=== PATIENT | female | born 1980 | race Caucasian/White ===

== ENCOUNTER 2019-01-10 22:12 | Inpatient (IN) | payer OTHER ==
[2019-01-10] MEDS: SOD CHLORIDE 0.9% 500 ML IV (22:28)
[2019-01-10] MEDS: LORAZEPAM 2 MG INJ IV (22:28)
[2019-01-10] MEDS ORDERED: LORAZEPAM 2 MG INJ (22:31)
[2019-01-10 22:38] LABS: ABNORMAL IP MESSAGE 1; HEMATOCRIT 34.9 % (37.0-47.0); HEMOGLOBIN 11.1 g/dl (12.0-16.0); MEAN CORPUSCULAR HEMOGLOBIN 28.2 pg (29.0-33.0); MEAN CORPUSCULAR HGB CONC 31.8 g/dl (32.0-37.0); MEAN CORPUSCULAR VOLUME 88.6 fl (82.0-101.0); MEAN PLATELET VOLUME 13.1 fl (7.4-10.4); PLATELET COUNT 158 10^3/UL (140-415); RED BLOOD COUNT 3.94 10^6/ul (4.20-5.40); RED CELL DISTRIBUTION WIDTH 13.1 % (11.5-14.5)
[2019-01-10 22:38] LABS: WHITE BLOOD COUNT 9.2 10^3/ul (4.8-10.8)
[2019-01-10 22:41] LABS: ADD MAN DIFF? YES; POSITIVE DIFF @See below
[2019-01-10] MEDS: ASPIRIN 300 MG SUPP PR (22:48)
[2019-01-10 22:49] LABS: INR 1.02; PROTIME 13.5 Sec (11.9-14.9); PT RATIO 1.1
[2019-01-10 22:50] LABS: ALANINE AMINOTRANSFERASE 267 IU/L (13-69); ALBUMIN 3.1 g/dl (3.3-4.9); ALBUMIN/GLOBULIN RATIO 1.03; ALKALINE PHOSPHATASE 97 IU/L (42-121); ANION GAP 16 (5-13); ASPARTATE AMINO TRANSFERASE 199 IU/L (15-46); BILIRUBIN,INDIRECT 0.1 mg/dl (0-1.1); BILIRUBIN,TOTAL 0.1 mg/dl (0.2-1.3); BLOOD UREA NITROGEN 31 mg/dl (7-20); CALCIUM 8.7 mg/dl (8.4-10.2); CARBON DIOXIDE 11 mmol/L (21-31); CHLORIDE 110 mmol/L (97-110); CREATININE 1.75 mg/dl (0.44-1.00); Estimated GFR 32 mL/min (>60); GLUCOSE 268 mg/dl (70-220); LIPASE 169 U/L (23-300); PARTIAL THROMBOPLASTIN TIME 41.4 Sec (23.0-35.0); POTASSIUM 4.7 mmol/L (3.5-5.1); SODIUM 137 mmol/L (135-144); TOTAL PROTEIN 6.1 g/dl (6.1-8.1)
[2019-01-10] MEDS ORDERED: HEPARIN 1000 UNITS/ML 10 ML INJ (22:58)
[2019-01-10] MEDS ORDERED: VERAPAMIL 5 MG INJ ×2 (22:58→23:09)
[2019-01-10] MEDS ORDERED: IODIXANOL LOCM 100 ML BTL (22:58)
[2019-01-10] MEDS ORDERED: FENTAnyl 50 MCG/ML VIAL (22:58)
[2019-01-10] MEDS ORDERED: LIDOCAINE 1% (MDV) 20 ML INJ (22:58)
[2019-01-10] MEDS ORDERED: MIDAZOLAM 1 MG/ML 2 ML INJ (22:58)
[2019-01-10] MEDS ORDERED: NITROGLYCERIN (IC) 100 MCG/ML INJ (22:59)
[2019-01-10] MEDS: PROPOFOL 100 ML IV (22:59)
[2019-01-10 23:02] LABS: B-TYPE NATRIURETIC PEPTIDE 1240 PG/ML (0-125)
[2019-01-10 23:18] LABS: ANISOCYTOSIS 1+ (0-0); BASOPHIL #M 0.1 10^3/ul (0.0-0.0); BASOPHILS % (M) 2 % (0-2); EOSINOPHILS % (M) 1 % (0-7); LYMPHOCYTES #M 6.9 10^3/ul (0.8-2.9); LYMPHOCYTES % (M) 75 % (15-51); MICROCYTOSIS 1+ (0-0); MONOCYTE #M 0.4 10^3/ul (0.3-0.9); MONOCYTES % (M) 5 % (0-11); PLATELET ESTIMATE NORMAL; SEGMENTED NEUTROPHILS (M) % 17 % (39-77); SMUDGE%M 28 % (0-0)
[2019-01-10] MEDS ORDERED: EPTIFIBATIDE 100 ML IV (23:46)
[2019-01-10] MEDS ORDERED: TICAGRELOR 90 MG TABLET (23:46)
[2019-01-10] MEDS ORDERED: EPTIFIBATIDE 20 ML (23:46)
[2019-01-11] MEDS: morphine 2 MG INJ IV (00:55)
[2019-01-11] MEDS: MIDAZOLAM (DRIP) 50 mg/50 mL 50 ML IV ×4 (01:09→19:22)
[2019-01-11] MEDS: SOD CHLORIDE 0.9% 1,000 ML IV ×2 (01:10→21:11)
[2019-01-11] MEDS: EPTIFIBATIDE 100 ML IV (01:13)
[2019-01-11] MEDS ORDERED: DEXTROSE 50% 50 ML SYRINGE IV ×8 (01:30→12:00)
[2019-01-11] MEDS: ACCU-CHEK XX ×41 (01:30→21:00)
[2019-01-11] MEDS: INSULIN HUMAN REGULAR 100 UNIT in SOD CHLORIDE 0.9% 99 ML IV ×2 (01:37→14:20)
[2019-01-11 01:38] LABS: AADO2 Arterial 114.1 mmHg (7.0-24.0); Allen Test ACCEPTAB; Arterial Base Excess -9.1 mmol/L (-3.0-3); Arterial Blood Gas Oxygen Sat 98.8 mmHG (95.0-98.0); Arterial COHb 0.2 % (0.0-3.0); Arterial Fraction of Oxyhgb 98.3 % (93.0-99.0); Arterial MetHb 0.3 % (0.0-1.5); Arterial pCO2 32.4 mmhg (35-45); MODE VENT - AC; Site Right Radial
[2019-01-11] MEDS: NITROGLYCERIN 50 MG/D5W (PMX) 250 ML IV ×2 (01:49→14:22)
[2019-01-11] MEDS: PROPOFOL 100 ML IV ×5 (03:44→23:06)
[2019-01-11] MEDS: MIDAZOLAM 1 MG/ML 2 ML INJ IV (04:15)
[2019-01-11 05:22] LABS: ADD MAN DIFF? NO
[2019-01-11 05:32] LABS: BASOPHILS % 0.3 % (0.0-2.0); HEMATOCRIT 30.9 % (37.0-47.0); HEMOGLOBIN 10.4 g/dl (12.0-16.0); LYMPHOCYTES % 10.7 % (15.0-51.0); MEAN CORPUSCULAR HEMOGLOBIN 28.7 pg (29.0-33.0); MEAN CORPUSCULAR HGB CONC 33.7 g/dl (32.0-37.0); MEAN CORPUSCULAR VOLUME 85.4 fl (82.0-101.0); MEAN PLATELET VOLUME 12.7 fl (7.4-10.4); MONOCYTE # 0.6 10^3/ul (0.3-0.9); MONOCYTES % 6.7 % (0.0-11.0); NEUTROPHIL # 7.2 10^3/ul (1.6-7.5); NEUTROPHILS % 81.3 % (39.0-77.0); PLATELET COUNT 154 10^3/UL (140-415); RED BLOOD COUNT 3.62 10^6/ul (4.20-5.40); RED CELL DISTRIBUTION WIDTH 13.1 % (11.5-14.5)
[2019-01-11 05:32] LABS: WHITE BLOOD COUNT 8.9 10^3/ul (4.8-10.8)
[2019-01-11 05:51] LABS: HEMOGLOBIN A1C 5.2 % (0-5.9)
[2019-01-11 05:57] LABS: ALANINE AMINOTRANSFERASE 306 IU/L (13-69); ALBUMIN 3.1 g/dl (3.3-4.9); ALBUMIN/GLOBULIN RATIO 1.03; ALKALINE PHOSPHATASE 110 IU/L (42-121); ANION GAP 6 (5-13); ASPARTATE AMINO TRANSFERASE 309 IU/L (15-46); BILIRUBIN,INDIRECT 0.2 mg/dl (0-1.1); BILIRUBIN,TOTAL 0.2 mg/dl (0.2-1.3); BLOOD UREA NITROGEN 32 mg/dl (7-20); CALCIUM 8.2 mg/dl (8.4-10.2); CARBON DIOXIDE 18 mmol/L (21-31); CHLORIDE 112 mmol/L (97-110); CHOL/HDL RATIO 6.7 RATIO; CHOLESTEROL 223 mg/dl (100-200); CREATININE 1.25 mg/dl (0.44-1.00); Estimated GFR 48 mL/min (>60); GLUCOSE 122 mg/dl (70-220); HDL CHOLESTEROL 33 mg/dl (34-88); LDL CHOLESTEROL,CALCULATED 135 mg/dl; MAGNESIUM 1.7 mg/dl (1.7-2.5); POTASSIUM 4.1 mmol/L (3.5-5.1); SODIUM 136 mmol/L (135-144); TOTAL PROTEIN 6.1 g/dl (6.1-8.1); TRIGLYCERIDES 274 mg/dl (0-149)
[2019-01-11 06:04] LABS: B-TYPE NATRIURETIC PEPTIDE 2620 PG/ML (0-125)
[2019-01-11 06:20] LABS: FREE T4 (FREE THYROXINE) 2.23 ng/dl (0.79-2.35)
[2019-01-11 06:25] LABS: THYROID STIMULATING HORMONE 0.894 MIU/L (0.465-4.680)
[2019-01-11 06:33] LABS: CREATINE KINASE 216 IU/L (23-200)
[2019-01-11 06:49] LABS: CREATINE KINASE 216 IU/L (23-200)
[2019-01-11] MEDS: TICAGRELOR 90 MG TABLET PO ×2 (08:50→21:20)
[2019-01-11] MEDS: DOCUSATE SODIUM 100 MG CAP PO ×2 (08:52→21:00)
[2019-01-11] MEDS: ASPIRIN (EC) 81 MG TAB PO (08:53)
[2019-01-11] MEDS ORDERED: GLUCOSE GEL 15 GRAM TUBE PO ×2 (09:00)
[2019-01-11] MEDS ORDERED: GLUCOSE GEL 15 GRAM TUBE BUCCAL (09:00)
[2019-01-11] MEDS: Insulin NOVOLOG SS MILD Algorithm (NPO/TPN/ENTERAL FEEDS) SC (09:00)
[2019-01-11] MEDS ORDERED: GLUCAGON 1 MG INJ IM (09:00)
[2019-01-11] MEDS ORDERED: INSULIN ASPART [NOVOLOG] 3 ML PEN SC (09:00)
[2019-01-11] MEDS ORDERED: MEPERIDINE 25 MG INJ IV ×2 (11:00→17:00)
[2019-01-11 11:35] LABS: CREATINE KINASE 300 IU/L (23-200)
[2019-01-11 11:49] LABS: CK INDEX 7.7
[2019-01-11] MEDS ORDERED: morphine 10 MG INJ (12:06)
[2019-01-11] MEDS: LACTATED RINGER'S 500 ML IV (12:30)
[2019-01-11 12:42] LABS: ADD MAN DIFF? NO; UR BACTERIA FEW /HPF (NONE SEEN); UR NONSQUAMOUS EPITHELIAL CELL 1 /HPF (NONE SEEN); UR RBC 2 /HPF (0-5); UR WBC 17 /HPF (0-5)
[2019-01-11 12:43] LABS: BASOPHILS % 0.3 % (0.0-2.0); EOSINOPHILS % 0.1 % (0.0-7.0); HEMATOCRIT 29.3 % (37.0-47.0); HEMOGLOBIN 9.9 g/dl (12.0-16.0); LYMPHOCYTES # 0.9 10^3/ul (0.8-2.9); LYMPHOCYTES % 11.6 % (15.0-51.0); MEAN CORPUSCULAR HEMOGLOBIN 28.8 pg (29.0-33.0); MEAN CORPUSCULAR HGB CONC 33.8 g/dl (32.0-37.0); MEAN CORPUSCULAR VOLUME 85.2 fl (82.0-101.0); MEAN PLATELET VOLUME 12.8 fl (7.4-10.4); MONOCYTE # 0.6 10^3/ul (0.3-0.9); MONOCYTES % 8.3 % (0.0-11.0); NEUTROPHILS % 79.3 % (39.0-77.0); PLATELET COUNT 149 10^3/UL (140-415); RED BLOOD COUNT 3.44 10^6/ul (4.20-5.40); RED CELL DISTRIBUTION WIDTH 13.2 % (11.5-14.5)
[2019-01-11 12:43] LABS: WHITE BLOOD COUNT 7.6 10^3/ul (4.8-10.8)
[2019-01-11 12:46] LABS: LACTIC ACID 0.6 mmol/L (0.5-2.0)
[2019-01-11 12:47] LABS: ADD UMIC YES; UR ASCORBIC ACID NEGATIVE (NEGATIVE); UR BILIRUBIN (Dip) NEGATIVE (NEGATIVE); UR BLOOD (Dip) NEGATIVE (NEGATIVE); UR CLARITY CLEAR (CLEAR); UR COLOR YELLOW (YELLOW); UR GLUCOSE (Dip) NEGATIVE (NEGATIVE); UR KETONES (Dip) NEGATIVE (NEGATIVE); UR LEUKOCYTE ESTERASE (Dip) NEGATIVE Leu/ul (NEGATIVE); UR NITRITE (Dip) NEGATIVE (NEGATIVE); UR SPECIFIC GRAVITY (Dip) 1.025 (1.003-1.030); UR SQUAMOUS EPITHELIAL CELL FEW /HPF (FEW); UR TOTAL PROTEIN (Dip) 2+ mg/dl (NEGATIVE); UR UROBILINOGEN (Dip) NEGATIVE (NEGATIVE)
[2019-01-11 12:52] LABS: AMYLASE 66 U/L (11-123); ANION GAP 8 (5-13); BLOOD UREA NITROGEN 24 mg/dl (7-20); CALCIUM 8.2 mg/dl (8.4-10.2); CARBON DIOXIDE 15 mmol/L (21-31); CHLORIDE 115 mmol/L (97-110); CREATINE KINASE 294 IU/L (23-200); CREATININE 0.97 mg/dl (0.44-1.00); Estimated GFR > 60 mL/min (>60); GLUCOSE 125 mg/dl (70-220); LIPASE 92 U/L (23-300); MAGNESIUM 1.6 mg/dl (1.7-2.5); PHOSPHORUS 3.7 mg/dl (2.5-4.9); POTASSIUM 3.9 mmol/L (3.5-5.1); SODIUM 138 mmol/L (135-144)
[2019-01-11 13:03] LABS: CK INDEX 7.4
[2019-01-11 13:04] LABS: INR 0.99; PROTIME 13.2 Sec (11.9-14.9)
[2019-01-11 13:05] LABS: PARTIAL THROMBOPLASTIN TIME 34.3 Sec (23.0-35.0)
[2019-01-11 13:08] LABS: D-DIMER 2875.57 ng/ml (<460)
[2019-01-11] MEDS: FENTAnyl (DRIP) 1000 mcg/100mL 100 ML IV ×2 (14:22→19:21)
[2019-01-11] MEDS: MEPERIDINE 25 MG INJ IV ×2 (14:43→16:31)
[2019-01-11] MEDS: ACETAMINOPHEN 650MG/20.3ML CUP PO (14:57)
[2019-01-11] MEDS: ARTIFICIAL TEARS 15 ML OPH BOTH EYES ×2 (15:08→17:12)
[2019-01-11] MEDS: OCULAR LUBRICANT 3.5 GM OPH OINT BOTH EYES ×2 (15:09→17:12)
[2019-01-11] MEDS: MAGNESIUM SULFATE 2 GM/50 ML 50 ML IVPB (15:09)
[2019-01-11] MEDS: VECURONIUM 100 MG in DEXTROSE 5% 100 ML IV ×2 (16:51→16:59)
[2019-01-11 20:21] LABS: ADD MAN DIFF? NO; BASOPHILS % 0.4 % (0.0-2.0); EOSINOPHILS % 0.1 % (0.0-7.0); HEMATOCRIT 29.2 % (37.0-47.0); LYMPHOCYTES # 1.1 10^3/ul (0.8-2.9); LYMPHOCYTES % 15.3 % (15.0-51.0); MEAN CORPUSCULAR HEMOGLOBIN 28.8 pg (29.0-33.0); MEAN CORPUSCULAR HGB CONC 34.2 g/dl (32.0-37.0); MEAN CORPUSCULAR VOLUME 84.1 fl (82.0-101.0); MEAN PLATELET VOLUME 12.7 fl (7.4-10.4); MONOCYTE # 0.5 10^3/ul (0.3-0.9); MONOCYTES % 7.6 % (0.0-11.0); NEUTROPHIL # 5.4 10^3/ul (1.6-7.5); NEUTROPHILS % 76.2 % (39.0-77.0); PLATELET COUNT 142 10^3/UL (140-415); RED BLOOD COUNT 3.47 10^6/ul (4.20-5.40); RED CELL DISTRIBUTION WIDTH 13.1 % (11.5-14.5)
[2019-01-11 20:21] LABS: WHITE BLOOD COUNT 7.1 10^3/ul (4.8-10.8)
[2019-01-11 20:26] LABS: Arterial Base Excess -8.1 mmol/L (-3.0-3); Arterial Blood Gas Oxygen Sat 98.8 mmHG (95.0-98.0); Arterial COHb 0.3 % (0.0-3.0); Arterial Fraction of Oxyhgb 98.2 % (93.0-99.0); Arterial HCO3 12.9 mmol/L (22.0-26.0); Arterial MetHb 0.3 % (0.0-1.5); MODE VENT - AC; Site A-Line
[2019-01-11 20:39] LABS: LACTIC ACID 0.8 mmol/L (0.5-2.0)
[2019-01-11 20:40] LABS: ANION GAP 10 (5-13); BLOOD UREA NITROGEN 20 mg/dl (7-20); CALCIUM 8.5 mg/dl (8.4-10.2); CARBON DIOXIDE 12 mmol/L (21-31); CHLORIDE 114 mmol/L (97-110); CREATININE 0.78 mg/dl (0.44-1.00); Estimated GFR > 60 mL/min (>60); GLUCOSE 126 mg/dl (70-220); MAGNESIUM 2.8 mg/dl (1.7-2.5); PHOSPHORUS 3.1 mg/dl (2.5-4.9); POTASSIUM 3.4 mmol/L (3.5-5.1); SODIUM 136 mmol/L (135-144)
[2019-01-11 20:45] LABS: AADO2 Arterial 36.6 mmHg (7.0-24.0); Arterial pCO2 14.5 mmhg (35-45); Temperature 32.9 C
[2019-01-11] MEDS: ATORVASTATIN 80 MG TAB PO (21:16)
[2019-01-12] MEDS: ARTIFICIAL TEARS 15 ML OPH BOTH EYES ×4 (00:48→18:15)
[2019-01-12] MEDS: OCULAR LUBRICANT 3.5 GM OPH OINT BOTH EYES ×4 (00:48→18:15)
[2019-01-12 01:07] LABS: LIPASE 58 U/L (23-300)
[2019-01-12 01:07] LABS: AMYLASE 36 U/L (11-123)
[2019-01-12 01:08] LABS: INR 1.08; PROTIME 14.1 Sec (11.9-14.9); PT RATIO 1.1
[2019-01-12] MEDS ORDERED: ACCU-CHEK XX (02:00)
[2019-01-12 02:18] LABS: ADD MAN DIFF? NO
[2019-01-12 02:19] LABS: WHITE BLOOD COUNT 5.3 10^3/ul (4.8-10.8)
[2019-01-12 02:19] LABS: BASOPHILS % 0.2 % (0.0-2.0); EOSINOPHILS % 0.8 % (0.0-7.0); HEMATOCRIT 26.4 % (37.0-47.0); HEMOGLOBIN 8.9 g/dl (12.0-16.0); LYMPHOCYTES # 1.2 10^3/ul (0.8-2.9); LYMPHOCYTES % 22.6 % (15.0-51.0); MEAN CORPUSCULAR HEMOGLOBIN 28.3 pg (29.0-33.0); MEAN CORPUSCULAR HGB CONC 33.7 g/dl (32.0-37.0); MEAN CORPUSCULAR VOLUME 83.8 fl (82.0-101.0); MEAN PLATELET VOLUME 12.6 fl (7.4-10.4); MONOCYTE # 0.4 10^3/ul (0.3-0.9); MONOCYTES % 7.9 % (0.0-11.0); NEUTROPHIL # 3.6 10^3/ul (1.6-7.5); NEUTROPHILS % 67.9 % (39.0-77.0); PLATELET COUNT 114 10^3/UL (140-415); RED BLOOD COUNT 3.15 10^6/ul (4.20-5.40); RED CELL DISTRIBUTION WIDTH 13.2 % (11.5-14.5)
[2019-01-12 02:29] LABS: AADO2 Arterial 92.5 mmHg (7.0-24.0); Arterial Blood Gas Oxygen Sat 97.7 mmHG (95.0-98.0); Arterial COHb 0.2 % (0.0-3.0); Arterial Fraction of Oxyhgb 97.2 % (93.0-99.0); Arterial HCO3 14.7 mmol/L (22.0-26.0); Arterial MetHb 0.3 % (0.0-1.5); Arterial pCO2 21.5 mmhg (35-45); MODE VENT - AC; Site A-Line; Temperature 33.1 C
[2019-01-12 02:38] LABS: ANION GAP 8 (5-13); BLOOD UREA NITROGEN 19 mg/dl (7-20); CALCIUM 7.8 mg/dl (8.4-10.2); CARBON DIOXIDE 14 mmol/L (21-31); CHLORIDE 117 mmol/L (97-110); CREATININE 0.81 mg/dl (0.44-1.00); Estimated GFR > 60 mL/min (>60); GLUCOSE 107 mg/dl (70-220); MAGNESIUM 2.4 mg/dl (1.7-2.5); PHOSPHORUS 3.8 mg/dl (2.5-4.9); POTASSIUM 3.1 mmol/L (3.5-5.1); SODIUM 139 mmol/L (135-144)
[2019-01-12 02:39] LABS: LACTIC ACID 0.7 mmol/L (0.5-2.0)
[2019-01-12] MEDS: PROPOFOL 100 ML IV ×7 (02:47→22:05)
[2019-01-12] MEDS: POTASSIUM CHLORIDE 50 ML IVPB ×2 (03:22→05:22)
[2019-01-12] MEDS: SOD CHLORIDE 0.9% 1,000 ML IV ×2 (06:20→16:36)
[2019-01-12] MEDS: FENTAnyl (DRIP) 1000 mcg/100mL 100 ML IV ×2 (07:00→16:27)
[2019-01-12 07:05] LABS: AADO2 Arterial 79.5 mmHg (7.0-24.0); Arterial Base Excess -20.5 mmol/L (-3.0-3); Arterial Blood Gas Oxygen Sat 96.5 mmHG (95.0-98.0); Arterial COHb 0.1 % (0.0-3.0); Arterial HCO3 4.8 mmol/L (22.0-26.0); Arterial MetHb 1.5 % (0.0-1.5); Arterial pCO2 10.1 mmhg (35-45); MODE VENT - AC; Site A-Line
[2019-01-12 07:50] LABS: AADO2 Arterial 73.6 mmHg (7.0-24.0); Arterial Base Excess -9.4 mmol/L (-3.0-3); Arterial COHb 0.2 % (0.0-3.0); Arterial Fraction of Oxyhgb 97.5 % (93.0-99.0); Arterial HCO3 14.3 mmol/L (22.0-26.0); Arterial MetHb 0.3 % (0.0-1.5); Arterial pCO2 20.2 mmhg (35-45); MODE VENT - AC; Site A-Line; Temperature 32.5 C
[2019-01-12 08:17] LABS: ABNORMAL IP MESSAGE 1; ADD MAN DIFF? NO; BASOPHILS % 0.5 % (0.0-2.0); EOSINOPHILS # 0.1 10^3/ul (0.0-0.5); EOSINOPHILS % 2.3 % (0.0-7.0); HEMATOCRIT 25.1 % (37.0-47.0); HEMOGLOBIN 8.5 g/dl (12.0-16.0); LYMPHOCYTES % 25.1 % (15.0-51.0); MEAN CORPUSCULAR HEMOGLOBIN 28.6 pg (29.0-33.0); MEAN CORPUSCULAR HGB CONC 33.9 g/dl (32.0-37.0); MEAN CORPUSCULAR VOLUME 84.5 fl (82.0-101.0); MEAN PLATELET VOLUME 12.5 fl (7.4-10.4); MONOCYTE # 0.3 10^3/ul (0.3-0.9); MONOCYTES % 8.3 % (0.0-11.0); NEUTROPHIL # 2.5 10^3/ul (1.6-7.5); NEUTROPHILS % 63.3 % (39.0-77.0); PLATELET COUNT 94 10^3/UL (140-415); RED BLOOD COUNT 2.97 10^6/ul (4.20-5.40); RED CELL DISTRIBUTION WIDTH 13.3 % (11.5-14.5)
[2019-01-12 08:19] LABS: POSITIVE DIFF @See below
[2019-01-12] MEDS: DOCUSATE SODIUM 100 MG CAP PO ×2 (08:32→21:32)
[2019-01-12 08:40] LABS: LACTIC ACID 0.9 mmol/L (0.5-2.0)
[2019-01-12] MEDS: ASPIRIN 81 MG TAB NGT (08:51)
[2019-01-12] MEDS: TICAGRELOR 90 MG TABLET PO ×2 (08:53→21:33)
[2019-01-12 09:16] LABS: ANION GAP 5 (5-13); BLOOD UREA NITROGEN 19 mg/dl (7-20); CALCIUM 7.5 mg/dl (8.4-10.2); CARBON DIOXIDE 14 mmol/L (21-31); CHLORIDE 119 mmol/L (97-110); CREATININE 0.81 mg/dl (0.44-1.00); Estimated GFR > 60 mL/min (>60); GLUCOSE 109 mg/dl (70-220); MAGNESIUM 2.3 mg/dl (1.7-2.5); PHOSPHORUS 3.6 mg/dl (2.5-4.9); POTASSIUM 4.1 mmol/L (3.5-5.1); SODIUM 138 mmol/L (135-144)
[2019-01-12] MEDS ORDERED: ACETAMINOPHEN 650 MG SUPP PR (12:00)
[2019-01-12] MEDS: FUROSEMIDE 20 MG INJ IV (13:25)
[2019-01-12 14:08] LABS: AADO2 Arterial 126.4 mmHg (7.0-24.0); Arterial Base Excess -9.7 mmol/L (-3.0-3); Arterial Blood Gas Oxygen Sat 94.1 mmHG (95.0-98.0); Arterial COHb 0.2 % (0.0-3.0); Arterial Fraction of Oxyhgb 93.7 % (93.0-99.0); Arterial HCO3 14.7 mmol/L (22.0-26.0); Arterial MetHb 0.2 % (0.0-1.5); Arterial pCO2 23.7 mmhg (35-45); MODE VENT - AC; Site A-Line; Temperature 33.5 C
[2019-01-12 14:47] LABS: ADD MAN DIFF? NO
[2019-01-12 14:50] LABS: ABNORMAL IP MESSAGE 1; BASOPHILS % 0.2 % (0.0-2.0); EOSINOPHILS # 0.1 10^3/ul (0.0-0.5); EOSINOPHILS % 2.5 % (0.0-7.0); HEMATOCRIT 26.9 % (37.0-47.0); LYMPHOCYTES # 0.7 10^3/ul (0.8-2.9); LYMPHOCYTES % 16.1 % (15.0-51.0); MEAN CORPUSCULAR HEMOGLOBIN 28.8 pg (29.0-33.0); MEAN CORPUSCULAR HGB CONC 33.5 g/dl (32.0-37.0); MEAN CORPUSCULAR VOLUME 86.2 fl (82.0-101.0); MEAN PLATELET VOLUME 13.2 fl (7.4-10.4); MONOCYTE # 0.3 10^3/ul (0.3-0.9); MONOCYTES % 7.4 % (0.0-11.0); NEUTROPHIL # 2.9 10^3/ul (1.6-7.5); NEUTROPHILS % 73.1 % (39.0-77.0); PLATELET COUNT 95 10^3/UL (140-415); RED BLOOD COUNT 3.12 10^6/ul (4.20-5.40); RED CELL DISTRIBUTION WIDTH 13.7 % (11.5-14.5)
[2019-01-12 14:58] LABS: POSITIVE DIFF @See below
[2019-01-12 15:09] LABS: INR 1.05; PROTIME 13.8 Sec (11.9-14.9); PT RATIO 1.1
[2019-01-12 15:10] LABS: LIPASE 220 U/L (23-300); PARTIAL THROMBOPLASTIN TIME 36.6 Sec (23.0-35.0)
[2019-01-12 15:11] LABS: AMYLASE < 30 U/L (11-123)
[2019-01-12 15:12] LABS: ANION GAP 7 (5-13); BLOOD UREA NITROGEN 20 mg/dl (7-20); CALCIUM 7.6 mg/dl (8.4-10.2); CARBON DIOXIDE 15 mmol/L (21-31); CHLORIDE 116 mmol/L (97-110); CREATININE 0.89 mg/dl (0.44-1.00); Estimated GFR > 60 mL/min (>60); GLUCOSE 112 mg/dl (70-220); MAGNESIUM 2.3 mg/dl (1.7-2.5); PHOSPHORUS 3.8 mg/dl (2.5-4.9); POTASSIUM 3.9 mmol/L (3.5-5.1); SODIUM 138 mmol/L (135-144)
[2019-01-12 15:13] LABS: LACTIC ACID 0.8 mmol/L (0.5-2.0)
[2019-01-12 15:25] LABS: TROPONIN-I 0.757 ng/ml (0.000-0.120)
[2019-01-12] MEDS: ACETAMINOPHEN 650MG/20.3ML CUP PO (18:15)
[2019-01-12 20:05] LABS: AADO2 Arterial 124.9 mmHg (7.0-24.0); Arterial Base Excess -11.3 mmol/L (-3.0-3); Arterial Blood Gas Oxygen Sat 94.4 mmHG (95.0-98.0); Arterial COHb 0.2 % (0.0-3.0); Arterial Fraction of Oxyhgb 93.8 % (93.0-99.0); Arterial HCO3 13.5 mmol/L (22.0-26.0); Arterial MetHb 0.4 % (0.0-1.5); Arterial pCO2 22.9 mmhg (35-45); MODE VENT - AC; Site A-Line; Temperature 33.4 C
[2019-01-12 20:22] LABS: ADD MAN DIFF? NO
[2019-01-12 20:24] LABS: ABNORMAL IP MESSAGE 1; BASOPHILS % 0.4 % (0.0-2.0); EOSINOPHILS # 0.1 10^3/ul (0.0-0.5); HEMATOCRIT 27.5 % (37.0-47.0); HEMOGLOBIN 9.3 g/dl (12.0-16.0); LYMPHOCYTES # 0.8 10^3/ul (0.8-2.9); LYMPHOCYTES % 18.4 % (15.0-51.0); MEAN CORPUSCULAR HEMOGLOBIN 29.1 pg (29.0-33.0); MEAN CORPUSCULAR HGB CONC 33.8 g/dl (32.0-37.0); MEAN CORPUSCULAR VOLUME 85.9 fl (82.0-101.0); MEAN PLATELET VOLUME 13.3 fl (7.4-10.4); MONOCYTE # 0.3 10^3/ul (0.3-0.9); MONOCYTES % 7.5 % (0.0-11.0); NEUTROPHIL # 3.2 10^3/ul (1.6-7.5); PLATELET COUNT 103 10^3/UL (140-415); RED CELL DISTRIBUTION WIDTH 13.8 % (11.5-14.5)
[2019-01-12 20:24] LABS: WHITE BLOOD COUNT 4.5 10^3/ul (4.8-10.8)
[2019-01-12 20:35] LABS: POSITIVE DIFF @See below
[2019-01-12 20:43] LABS: ANION GAP 5 (5-13); BLOOD UREA NITROGEN 19 mg/dl (7-20); CALCIUM 7.5 mg/dl (8.4-10.2); CARBON DIOXIDE 14 mmol/L (21-31); CHLORIDE 119 mmol/L (97-110); CREATININE 0.94 mg/dl (0.44-1.00); Estimated GFR > 60 mL/min (>60); GLUCOSE 111 mg/dl (70-220); MAGNESIUM 2.2 mg/dl (1.7-2.5); PHOSPHORUS 4.1 mg/dl (2.5-4.9); POTASSIUM 4.1 mmol/L (3.5-5.1); SODIUM 138 mmol/L (135-144)
[2019-01-12 20:48] LABS: LACTIC ACID 1.1 mmol/L (0.5-2.0)
[2019-01-12 20:56] LABS: TROPONIN-I 0.712 ng/ml (0.000-0.120)
[2019-01-12] MEDS: ACCU-CHEK XX (21:00)
[2019-01-12] MEDS: ATORVASTATIN 80 MG TAB PO (21:32)
[2019-01-13] MEDS: ARTIFICIAL TEARS 15 ML OPH BOTH EYES ×4 (00:20→18:39)
[2019-01-13] MEDS: OCULAR LUBRICANT 3.5 GM OPH OINT BOTH EYES ×4 (00:20→18:39)
[2019-01-13] MEDS: ACETAMINOPHEN 650MG/20.3ML CUP PO ×4 (00:20→18:40)
[2019-01-13] MEDS: PROPOFOL 100 ML IV ×6 (01:23→22:13)
[2019-01-13] MEDS: SOD CHLORIDE 0.9% 1,000 ML IV ×3 (01:32→13:49)
[2019-01-13 02:40] LABS: ADD MAN DIFF? NO
[2019-01-13 02:46] LABS: WHITE BLOOD COUNT 7.5 10^3/ul (4.8-10.8)
[2019-01-13 02:46] LABS: ABNORMAL IP MESSAGE 1; BASOPHILS % 0.3 % (0.0-2.0); EOSINOPHILS # 0.1 10^3/ul (0.0-0.5); EOSINOPHILS % 0.7 % (0.0-7.0); HEMATOCRIT 31.3 % (37.0-47.0); HEMOGLOBIN 10.4 g/dl (12.0-16.0); LYMPHOCYTES # 0.6 10^3/ul (0.8-2.9); LYMPHOCYTES % 8.2 % (15.0-51.0); MEAN CORPUSCULAR HGB CONC 33.2 g/dl (32.0-37.0); MEAN CORPUSCULAR VOLUME 87.2 fl (82.0-101.0); MEAN PLATELET VOLUME 13.2 fl (7.4-10.4); MONOCYTE # 0.5 10^3/ul (0.3-0.9); MONOCYTES % 6.8 % (0.0-11.0); NEUTROPHIL # 6.2 10^3/ul (1.6-7.5); NEUTROPHILS % 83.3 % (39.0-77.0); PLATELET COUNT 117 10^3/UL (140-415); RED BLOOD COUNT 3.59 10^6/ul (4.20-5.40); RED CELL DISTRIBUTION WIDTH 14.2 % (11.5-14.5)
[2019-01-13 02:59] LABS: POSITIVE DIFF @See below
[2019-01-13 03:00] LABS: LACTIC ACID 0.9 mmol/L (0.5-2.0)
[2019-01-13 03:08] LABS: INR 1.03; PROTIME 13.6 Sec (11.9-14.9); PT RATIO 1.1
[2019-01-13 03:09] LABS: PARTIAL THROMBOPLASTIN TIME 37.2 Sec (23.0-35.0)
[2019-01-13 03:10] LABS: ALANINE AMINOTRANSFERASE 321 IU/L (13-69); ALBUMIN 2.7 g/dl (3.3-4.9); ALKALINE PHOSPHATASE 151 IU/L (42-121); ANION GAP 8 (5-13); ASPARTATE AMINO TRANSFERASE 148 IU/L (15-46); BILIRUBIN,INDIRECT 0.1 mg/dl (0-1.1); BILIRUBIN,TOTAL 0.3 mg/dl (0.2-1.3); BLOOD UREA NITROGEN 19 mg/dl (7-20); CALCIUM 7.9 mg/dl (8.4-10.2); CARBON DIOXIDE 13 mmol/L (21-31); CHLORIDE 119 mmol/L (97-110); CREATININE 1.12 mg/dl (0.44-1.00); Estimated GFR 54 mL/min (>60); GLUCOSE 111 mg/dl (70-220); MAGNESIUM 2.1 mg/dl (1.7-2.5); POTASSIUM 4.2 mmol/L (3.5-5.1); SODIUM 140 mmol/L (135-144); TOTAL PROTEIN 5.7 g/dl (6.1-8.1)
[2019-01-13 03:11] LABS: AMYLASE 46 U/L (11-123)
[2019-01-13 03:11] LABS: LIPASE 125 U/L (23-300)
[2019-01-13] MEDS: FENTAnyl (DRIP) 1000 mcg/100mL 100 ML IV ×2 (03:13→16:58)
[2019-01-13 03:20] LABS: TROPONIN-I 0.738 ng/ml (0.000-0.120)
[2019-01-13 03:48] LABS: Arterial Base Excess -14.6 mmol/L (-3.0-3); Arterial Blood Gas Oxygen Sat 99.1 mmHG (95.0-98.0); Arterial COHb 0.3 % (0.0-3.0); Arterial Fraction of Oxyhgb 98.4 % (93.0-99.0); Arterial HCO3 13.6 mmol/L (22.0-26.0); Arterial MetHb 0.4 % (0.0-1.5); Arterial pCO2 35.9 mmhg (35-45); MODE VENT - AC; Site A-Line; Temperature 34.6 C
[2019-01-13] MEDS: SOD CHLORIDE 0.9% 500 ML IV (04:37)
[2019-01-13] MEDS ORDERED: BIVALIRUDIN 250 MG/50 ML NS BAG IVPB (07:00)
[2019-01-13] MEDS: FUROSEMIDE 40 MG INJ IV (07:14)
[2019-01-13] MEDS: TICAGRELOR 90 MG TABLET PO ×2 (08:15→21:05)
[2019-01-13] MEDS: ASPIRIN 81 MG TAB NGT (08:15)
[2019-01-13] MEDS: DOCUSATE SODIUM 100 MG CAP PO ×2 (08:19→21:04)
[2019-01-13] MEDS: ACCU-CHEK XX ×2 (08:27→21:00)
[2019-01-13] MEDS ORDERED: VERAPAMIL 5 MG INJ (11:27)
[2019-01-13] MEDS ORDERED: LIDOCAINE 1% (MDV) 20 ML INJ (11:27)
[2019-01-13] MEDS ORDERED: NITROGLYCERIN (IC) 100 MCG/ML INJ (11:28)
[2019-01-13] MEDS ORDERED: IOHEXOL 350MG/ML 50 ML BTL (12:25)
[2019-01-13] MEDS ORDERED: IODIXANOL LOCM 100 ML BTL (12:25)
[2019-01-13] MEDS: ATORVASTATIN 80 MG TAB PO (21:04)
[2019-01-14] MEDS: ACETAMINOPHEN 650MG/20.3ML CUP PO ×3 (00:19→12:00)
[2019-01-14] MEDS: ARTIFICIAL TEARS 15 ML OPH BOTH EYES ×4 (00:20→18:05)
[2019-01-14] MEDS: OCULAR LUBRICANT 3.5 GM OPH OINT BOTH EYES ×4 (00:20→18:05)
[2019-01-14] MEDS: SOD CHLORIDE 0.9% 1,000 ML IV ×3 (00:21→23:44)
[2019-01-14] MEDS: FENTAnyl (DRIP) 1000 mcg/100mL 100 ML IV ×2 (02:33→16:52)
[2019-01-14 04:26] LABS: WHITE BLOOD COUNT 8.9 10^3/ul (4.8-10.8)
[2019-01-14 04:26] LABS: ABNORMAL IP MESSAGE 1; HEMATOCRIT 28.8 % (37.0-47.0); HEMOGLOBIN 9.3 g/dl (12.0-16.0); MEAN CORPUSCULAR HEMOGLOBIN 28.9 pg (29.0-33.0); MEAN CORPUSCULAR HGB CONC 32.3 g/dl (32.0-37.0); MEAN CORPUSCULAR VOLUME 89.4 fl (82.0-101.0); MEAN PLATELET VOLUME 14.1 fl (7.4-10.4); PLATELET COUNT 103 10^3/UL (140-415); RED BLOOD COUNT 3.22 10^6/ul (4.20-5.40); RED CELL DISTRIBUTION WIDTH 14.8 % (11.5-14.5)
[2019-01-14 04:36] LABS: POSITIVE DIFF @See below
[2019-01-14 04:38] LABS: ADD MAN DIFF? YES
[2019-01-14 04:50] LABS: ALANINE AMINOTRANSFERASE 197 IU/L (13-69); ALBUMIN 2.4 g/dl (3.3-4.9); ALBUMIN/GLOBULIN RATIO 0.77; ALKALINE PHOSPHATASE 200 IU/L (42-121); ANION GAP 11 (5-13); ASPARTATE AMINO TRANSFERASE 110 IU/L (15-46); BLOOD UREA NITROGEN 19 mg/dl (7-20); CALCIUM 7.4 mg/dl (8.4-10.2); CARBON DIOXIDE 14 mmol/L (21-31); CHLORIDE 117 mmol/L (97-110); CREATINE KINASE 1003 IU/L (23-200); CREATININE 1.23 mg/dl (0.44-1.00); Estimated GFR 49 mL/min (>60); GLUCOSE 92 mg/dl (70-220); POTASSIUM 4.4 mmol/L (3.5-5.1); SODIUM 142 mmol/L (135-144); TOTAL PROTEIN 5.5 g/dl (6.1-8.1)
[2019-01-14 04:53] LABS: MAGNESIUM 1.7 mg/dl (1.7-2.5)
[2019-01-14 04:57] LABS: B-TYPE NATRIURETIC PEPTIDE 24300 PG/ML (0-125)
[2019-01-14 05:17] LABS: BILIRUBIN,INDIRECT 0.1 mg/dl (0-1.1); BILIRUBIN,TOTAL 0.2 mg/dl (0.2-1.3)
[2019-01-14] MEDS: PROPOFOL 100 ML IV ×3 (06:39→21:55)
[2019-01-14 06:53] LABS: ANISOCYTOSIS 1+ (0-0); BAND NEUTROPHILS #M 2.6 10^3/ul (0.0-0.6); BAND NEUTROPHILS % (M) 30 % (0-4); BURR CELLS 1+ (0-0); EOSINOPHILS % (M) 1 % (0-7); GIANT THROMBO% (M) 11 % (0-0); LYMPHOCYTES #M 1.2 10^3/ul (0.8-2.9); LYMPHOCYTES % (M) 14 % (15-51); MONOCYTE #M 0.3 10^3/ul (0.3-0.9); MONOCYTES % (M) 4 % (0-11); PLATELET ESTIMATE DECREASED; POIKILOCYTOSIS 1+ (0-0); SEG NEUT #M 4.8 10^3/ul (1.6-7.5); SEGMENTED NEUTROPHILS (M) % 51 % (39-77); SMUDGE%M 16 % (0-0)
[2019-01-14 08:39] LABS: AADO2 Arterial 71.4 mmHg (7.0-24.0); Allen Test ACCEPTAB; Arterial Blood Gas Oxygen Sat 96.9 mmHG (95.0-98.0); Arterial COHb 0.2 % (0.0-3.0); Arterial Fraction of Oxyhgb 96.2 % (93.0-99.0); Arterial HCO3 12.5 mmol/L (22.0-26.0); Arterial MetHb 0.5 % (0.0-1.5); Arterial pCO2 31.6 mmhg (35-45); MODE VENT - AC; Site Right Radial
[2019-01-14] MEDS: DOCUSATE SODIUM 100 MG CAP PO ×2 (09:18→20:46)
[2019-01-14] MEDS: ASPIRIN 81 MG TAB NGT (09:18)
[2019-01-14] MEDS: ACCU-CHEK XX ×2 (09:21→21:00)
[2019-01-14] MEDS: TICAGRELOR 90 MG TABLET PO ×2 (09:24→21:07)
[2019-01-14] MEDS: SODIUM BICARBONATE (IV ADD) 100 MEQ in DEXTROSE 5%-0.45% NACL 1,000 ML IV ×3 (09:30→21:00)
[2019-01-14] MEDS: MAGNESIUM SULFATE 3 GM in DEXTROSE 5% 100 ML IVPB (10:38)
[2019-01-14] MEDS: ALBUMIN HUMAN 25% 50 ML IV (14:07)
[2019-01-14] MEDS: ATORVASTATIN 80 MG TAB PO (20:46)
[2019-01-15] MEDS: ARTIFICIAL TEARS 15 ML OPH BOTH EYES ×5 (00:30→23:03)
[2019-01-15] MEDS: SODIUM BICARBONATE (IV ADD) 100 MEQ in DEXTROSE 5%-0.45% NACL 1,000 ML IV ×3 (00:30→23:28)
[2019-01-15] MEDS: OCULAR LUBRICANT 3.5 GM OPH OINT BOTH EYES ×5 (00:31→23:03)
[2019-01-15] MEDS: ACETAMINOPHEN 650 MG SUPP PR (04:37)
[2019-01-15] MEDS: PROPOFOL 100 ML IV (04:37)
[2019-01-15 05:37] LABS: ABNORMAL IP MESSAGE 1; HEMATOCRIT 23.2 % (37.0-47.0); HEMOGLOBIN 7.4 g/dl (12.0-16.0); MEAN CORPUSCULAR HEMOGLOBIN 28.5 pg (29.0-33.0); MEAN CORPUSCULAR HGB CONC 31.9 g/dl (32.0-37.0); MEAN CORPUSCULAR VOLUME 89.2 fl (82.0-101.0); MEAN PLATELET VOLUME 14.4 fl (7.4-10.4); PLATELET COUNT 102 10^3/UL (140-415); RED CELL DISTRIBUTION WIDTH 15.4 % (11.5-14.5)
[2019-01-15 05:46] LABS: CREATINE KINASE 750 IU/L (23-200)
[2019-01-15 05:50] LABS: MAGNESIUM 2.6 mg/dl (1.7-2.5)
[2019-01-15 05:52] LABS: ALANINE AMINOTRANSFERASE 129 IU/L (13-69); ALBUMIN 2.3 g/dl (3.3-4.9); ALBUMIN/GLOBULIN RATIO 0.88; ALKALINE PHOSPHATASE 191 IU/L (42-121); ANION GAP 8 (5-13); ASPARTATE AMINO TRANSFERASE 81 IU/L (15-46); BILIRUBIN,INDIRECT 0.2 mg/dl (0-1.1); BILIRUBIN,TOTAL 0.2 mg/dl (0.2-1.3); BLOOD UREA NITROGEN 26 mg/dl (7-20); CALCIUM 7.2 mg/dl (8.4-10.2); CARBON DIOXIDE 16 mmol/L (21-31); CHLORIDE 119 mmol/L (97-110); CREATININE 1.57 mg/dl (0.44-1.00); Estimated GFR 37 mL/min (>60); GLUCOSE 108 mg/dl (70-220); POTASSIUM 3.8 mmol/L (3.5-5.1); SODIUM 143 mmol/L (135-144); TOTAL PROTEIN 4.9 g/dl (6.1-8.1)
[2019-01-15 05:59] LABS: CK INDEX 2.2
[2019-01-15 06:00] LABS: ADD MAN DIFF? YES; POSITIVE DIFF @See below
[2019-01-15] MEDS ORDERED: PANTOPRAZOLE 40 MG INJ IV (06:00)
[2019-01-15 06:20] LABS: ADD UMIC YES; UR ASCORBIC ACID 40 mg/dL (NEGATIVE); UR BILIRUBIN (Dip) NEGATIVE (NEGATIVE); UR BLOOD (Dip) NEGATIVE (NEGATIVE); UR CLARITY CLOUDY (CLEAR); UR COLOR AMBER (YELLOW); UR GLUCOSE (Dip) NEGATIVE (NEGATIVE); UR HYALINE CAST FEW /HPF (NONE SEEN); UR KETONES (Dip) NEGATIVE (NEGATIVE); UR LEUKOCYTE ESTERASE (Dip) TRACE Leu/ul (NEGATIVE); UR MUCUS FEW /HPF (NONE SEEN); UR NITRITE (Dip) NEGATIVE (NEGATIVE); UR RBC 34 /HPF (0-5); UR SPECIFIC GRAVITY (Dip) 1.026 (1.003-1.030); UR SQUAMOUS EPITHELIAL CELL FEW /HPF (FEW); UR TOTAL PROTEIN (Dip) 2+ mg/dl (NEGATIVE); UR UROBILINOGEN (Dip) 1+ mg/dL (NEGATIVE); UR WBC 16 /HPF (0-5)
[2019-01-15 07:25] LABS: AADO2 Arterial 240.6 mmHg (7.0-24.0); Allen Test ACCEPTAB; Arterial Base Excess -7.5 mmol/L (-3.0-3); Arterial Blood Gas Oxygen Sat 93.7 mmHG (95.0-98.0); Arterial COHb 0.3 % (0.0-3.0); Arterial Fraction of Oxyhgb 92.9 % (93.0-99.0); Arterial HCO3 17.9 mmol/L (22.0-26.0); Arterial MetHb 0.6 % (0.0-1.5); Arterial pCO2 35.6 mmhg (35-45); MODE VENT - AC; Site Right Radial
[2019-01-15] MEDS: ZINC SULFATE 220 MG CAP NGT (09:00)
[2019-01-15] MEDS: ASCORBIC ACID 500 MG TAB NGT (09:00)
[2019-01-15] MEDS ORDERED: FAMOTIDINE 20 MG INJ IV (09:00)
[2019-01-15] MEDS: ASPIRIN 81 MG TAB NGT (09:00)
[2019-01-15] MEDS: MULTIVITAMINS 30 ML CUP NGT (09:00)
[2019-01-15] MEDS: PIPER-TAZO 3.375 GM IV (PMX) 100 ML IVPB ×3 (09:00→21:18)
[2019-01-15] MEDS: DOCUSATE SODIUM 100 MG CAP PO ×2 (09:00→21:18)
[2019-01-15] MEDS: FOLIC ACID 1 MG TAB NGT (09:00)
[2019-01-15] MEDS: TICAGRELOR 90 MG TABLET PO ×2 (09:01→21:41)
[2019-01-15 09:03] LABS: BAND NEUTROPHILS #M 1.3 10^3/ul (0.0-0.6); BAND NEUTROPHILS % (M) 33 % (0-4); BASOPHIL #M 0.2 10^3/ul (0.0-0.0); BASOPHILS % (M) 5 % (0-2); EOSINOPHILS % (M) 1 % (0-7); ERYTHROBLAST% (NRBC) (M) 5 % (0-0); GIANT THROMBO% (M) 21 % (0-0); HYPOCHROMASIA 1+ (0-0); LYMPHOCYTES % (M) 26 % (15-51); METAMYELOCYTES %M 1 % (0-0); MONOCYTE #M 0.2 10^3/ul (0.3-0.9); MONOCYTES % (M) 5 % (0-11); MYELOCYTES % (M) 2 % (0-0); PLATELET ESTIMATE DECREASED; POLYCHROMASIA 1+ (0-0); PROMYELOCYTES % (M) 2 % (0-0); REACTIVE LYMPHOCYTES% (M) 1 % (0-0); SEGMENTED NEUTROPHILS (M) % 24 % (39-77); SMUDGE%M 73 % (0-0)
[2019-01-15] MEDS: PANTOPRAZOLE 40 MG INJ IV ×2 (09:03→18:39)
[2019-01-15] MEDS: ACCU-CHEK XX ×2 (09:52→21:00)
[2019-01-15] MEDS: FENTAnyl (DRIP) 1000 mcg/100mL 100 ML IV (09:55)
[2019-01-15] MEDS: DEXMEDETOMIDINE HCL 200 MCG in SOD CHLORIDE 0.9% 48 ML IV ×3 (11:35→22:56)
[2019-01-15 12:35] LABS: HEMATOCRIT 21.7 % (37.0-47.0)
[2019-01-15] MEDS: ALBUTEROL HFA 8 GM INHALER INH ×2 (13:38→20:20)
[2019-01-15] MEDS: IPRATROPIUM (HFA) 12.9 GM INHALER INH ×2 (14:00→20:20)
[2019-01-15] MEDS ORDERED: ALBUMIN HUMAN 25% 50 ML (15:18)
[2019-01-15] MEDS: ALBUMIN HUMAN 25% 50 ML IV (15:26)
[2019-01-15] MEDS: ATORVASTATIN 80 MG TAB PO (21:18)
[2019-01-15 22:41] LABS: HEMATOCRIT 22.4 % (37.0-47.0); HEMOGLOBIN 7.2 g/dl (12.0-16.0)
[2019-01-15] MEDS: ALBUMIN HUMAN 25% 100 ML IV (23:30)
[2019-01-16] MEDS: NORepinephrine 8MG/250 ML (PMX 250 ML IV (00:41)
[2019-01-16] MEDS: IPRATROPIUM (HFA) 12.9 GM INHALER INH ×4 (01:28→19:38)
[2019-01-16] MEDS: ALBUTEROL HFA 8 GM INHALER INH ×4 (01:28→19:38)
[2019-01-16] MEDS ORDERED: VANCOMYCIN IV PER PHARMACY XX (01:30)
[2019-01-16] MEDS: VANCOMYCIN HCL 1.5 GM in SOD CHLORIDE 0.9% 250 ML IVPB (01:59)
[2019-01-16] MEDS: FENTAnyl (DRIP) 1000 mcg/100mL 100 ML IV ×2 (02:42→17:14)
[2019-01-16] MEDS: ACETAMINOPHEN 650MG/20.3ML CUP PO (04:37)
[2019-01-16 05:14] LABS: ABNORMAL IP MESSAGE 1; HEMATOCRIT 20.8 % (37.0-47.0); MEAN CORPUSCULAR HEMOGLOBIN 27.3 pg (29.0-33.0); MEAN CORPUSCULAR HGB CONC 32.2 g/dl (32.0-37.0); MEAN CORPUSCULAR VOLUME 84.9 fl (82.0-101.0); MEAN PLATELET VOLUME 14.6 fl (7.4-10.4); NUCLEATED RED BLOOD CELLS% 1.4 /100WBC (0.0-0.0); PLATELET COUNT 83 10^3/UL (140-415); RED BLOOD COUNT 2.45 10^6/ul (4.20-5.40); RED CELL DISTRIBUTION WIDTH 17.2 % (11.5-14.5)
[2019-01-16 05:14] LABS: WHITE BLOOD COUNT 6.3 10^3/ul (4.8-10.8)
[2019-01-16] MEDS: DEXMEDETOMIDINE HCL 200 MCG in SOD CHLORIDE 0.9% 48 ML IV ×5 (05:23→23:18)
[2019-01-16] MEDS: OCULAR LUBRICANT 3.5 GM OPH OINT BOTH EYES ×4 (05:24→23:09)
[2019-01-16] MEDS: PIPER-TAZO 3.375 GM IV (PMX) 100 ML IVPB (05:24)
[2019-01-16] MEDS: ARTIFICIAL TEARS 15 ML OPH BOTH EYES ×4 (05:24→23:09)
[2019-01-16] MEDS: PANTOPRAZOLE 40 MG INJ IV ×2 (05:40→18:44)
[2019-01-16 05:52] LABS: ALANINE AMINOTRANSFERASE 71 IU/L (13-69); ALBUMIN 2.3 g/dl (3.3-4.9); ALBUMIN/GLOBULIN RATIO 0.92; ALKALINE PHOSPHATASE 165 IU/L (42-121); ANION GAP 11 (5-13); ASPARTATE AMINO TRANSFERASE 55 IU/L (15-46); BILIRUBIN,INDIRECT 0.4 mg/dl (0-1.1); BILIRUBIN,TOTAL 0.8 mg/dl (0.2-1.3); BLOOD UREA NITROGEN 41 mg/dl (7-20); CALCIUM 6.5 mg/dl (8.4-10.2); CARBON DIOXIDE 20 mmol/L (21-31); CHLORIDE 112 mmol/L (97-110); Estimated GFR 20 mL/min (>60); GLUCOSE 137 mg/dl (70-220); MAGNESIUM 2.7 mg/dl (1.7-2.5); POTASSIUM 3.6 mmol/L (3.5-5.1); SODIUM 143 mmol/L (135-144); TOTAL PROTEIN 4.8 g/dl (6.1-8.1)
[2019-01-16 05:59] LABS: ADD MAN DIFF? YES; HEMOGLOBIN 6.7 g/dl (12.0-16.0); POSITIVE DIFF @See below
[2019-01-16 06:20] LABS: B-TYPE NATRIURETIC PEPTIDE 33300 PG/ML (0-125)
[2019-01-16 06:55] LABS: ANISOCYTOSIS 1+ (0-0); BAND NEUTROPHILS #M 3.2 10^3/ul (0.0-0.6); BAND NEUTROPHILS % (M) 51 % (0-4); BURR CELLS 1+ (0-0); ERYTHROBLAST% (NRBC) (M) 1 % (0-0); GIANT THROMBO% (M) 1 % (0-0); LYMPHOCYTES #M 0.6 10^3/ul (0.8-2.9); LYMPHOCYTES % (M) 11 % (15-51); METAMYELOCYTES #M 0.2 10^3/ul (0.0-0.0); METAMYELOCYTES %M 4 % (0-0); MICROCYTOSIS 1+ (0-0); MONOCYTE #M 0.2 10^3/ul (0.3-0.9); MONOCYTES % (M) 4 % (0-11); MYELOCYTES % (M) 1 % (0-0); PLATELET ESTIMATE DECREASED; POIKILOCYTOSIS 1+ (0-0); POLYCHROMASIA 3+ (0-0); PROMYELOCYTES % (M) 1 % (0-0); SEGMENTED NEUTROPHILS (M) % 28 % (39-77); SMUDGE%M 4 % (0-0); TARGET CELLS 1+ (0-0)
[2019-01-16 07:34] LABS: IMMEDIATE SPIN CROSSMATCH 1 3
[2019-01-16 07:39] LABS: AADO2 Arterial 201.6 mmHg (7.0-24.0); Allen Test ACCEPTAB; Arterial Base Excess -4.5 mmol/L (-3.0-3); Arterial Blood Gas Oxygen Sat 97.6 mmHG (95.0-98.0); Arterial COHb 0.3 % (0.0-3.0); Arterial Fraction of Oxyhgb 96.9 % (93.0-99.0); Arterial HCO3 20.1 mmol/L (22.0-26.0); Arterial MetHb 0.4 % (0.0-1.5); Arterial pCO2 34.9 mmhg (35-45); MODE VENT - AC; Site Right Radial
[2019-01-16] MEDS: ASCORBIC ACID 500 MG TAB NGT (08:24)
[2019-01-16] MEDS: ASPIRIN 81 MG TAB NGT ×2 (08:24→09:43)
[2019-01-16] MEDS: ZINC SULFATE 220 MG CAP NGT (08:25)
[2019-01-16] MEDS: FOLIC ACID 1 MG TAB NGT (08:25)
[2019-01-16] MEDS: MULTIVITAMINS 30 ML CUP NGT (08:25)
[2019-01-16] MEDS: DOCUSATE SODIUM 100 MG CAP PO ×2 (08:26→20:14)
[2019-01-16] MEDS: ACCU-CHEK XX ×2 (08:37→20:26)
[2019-01-16] MEDS ORDERED: LANSOPRAZOLE ORAL SUSP 3 MG/ML (POSYG) PO (09:00)
[2019-01-16] MEDS: TICAGRELOR 90 MG TABLET PO ×2 (09:43→20:15)
[2019-01-16] MEDS: SODIUM BICARBONATE (IV ADD) 100 MEQ in DEXTROSE 5%-0.45% NACL 1,000 ML IV ×2 (10:02→23:08)
[2019-01-16] MEDS: PIPER-TAZO 2.25 GM/NS 50 ML IVPB ×2 (14:37→20:28)
[2019-01-16 18:33] LABS: HEMOGLOBIN 9.2 g/dl (12.0-16.0)
[2019-01-16] MEDS: ATORVASTATIN 80 MG TAB PO (20:13)
[2019-01-16] MEDS: FUROSEMIDE 40 MG INJ IV (23:10)
[2019-01-17] MEDS ORDERED: VANCOMYCIN HCL 1.25 GM in SOD CHLORIDE 0.9% 250 ML IVPB ×2 (02:00→13:00)
[2019-01-17] MEDS: DEXMEDETOMIDINE HCL 200 MCG in SOD CHLORIDE 0.9% 48 ML IV ×6 (02:59→23:26)
[2019-01-17] MEDS: ALBUTEROL HFA 8 GM INHALER INH ×4 (03:20→20:49)
[2019-01-17] MEDS: IPRATROPIUM (HFA) 12.9 GM INHALER INH ×4 (03:20→20:50)
[2019-01-17 04:41] LABS: ABNORMAL IP MESSAGE 1; HEMATOCRIT 28.1 % (37.0-47.0); MEAN CORPUSCULAR HEMOGLOBIN 27.7 pg (29.0-33.0); MEAN CORPUSCULAR VOLUME 86.5 fl (82.0-101.0); NUCLEATED RED BLOOD CELLS% 1.2 /100WBC (0.0-0.0); PLATELET COUNT 82 10^3/UL (140-415); RED BLOOD COUNT 3.25 10^6/ul (4.20-5.40); RED CELL DISTRIBUTION WIDTH 16.9 % (11.5-14.5)
[2019-01-17 04:41] LABS: WHITE BLOOD COUNT 10.1 10^3/ul (4.8-10.8)
[2019-01-17 04:53] LABS: ADD MAN DIFF? YES; POSITIVE DIFF @See below
[2019-01-17 04:56] LABS: ALANINE AMINOTRANSFERASE 66 IU/L (13-69); ALBUMIN 2.3 g/dl (3.3-4.9); ALBUMIN/GLOBULIN RATIO 0.92; ALKALINE PHOSPHATASE 250 IU/L (42-121); ANION GAP 8 (5-13); ASPARTATE AMINO TRANSFERASE 93 IU/L (15-46); BILIRUBIN,INDIRECT 0.3 mg/dl (0-1.1); BILIRUBIN,TOTAL 0.5 mg/dl (0.2-1.3); BLOOD UREA NITROGEN 52 mg/dl (7-20); CALCIUM 6.3 mg/dl (8.4-10.2); CARBON DIOXIDE 21 mmol/L (21-31); CHLORIDE 113 mmol/L (97-110); CREATININE 3.83 mg/dl (0.44-1.00); Estimated GFR 13 mL/min (>60); GLUCOSE 120 mg/dl (70-220); MAGNESIUM 2.8 mg/dl (1.7-2.5); POTASSIUM 3.6 mmol/L (3.5-5.1); SODIUM 142 mmol/L (135-144); TOTAL PROTEIN 4.8 g/dl (6.1-8.1)
[2019-01-17 04:56] LABS: PHOSPHORUS 5.9 mg/dl (2.5-4.9)
[2019-01-17] MEDS: OCULAR LUBRICANT 3.5 GM OPH OINT BOTH EYES ×4 (05:39→23:26)
[2019-01-17] MEDS: PIPER-TAZO 2.25 GM/NS 50 ML IVPB ×3 (05:39→20:08)
[2019-01-17] MEDS: ARTIFICIAL TEARS 15 ML OPH BOTH EYES ×4 (05:39→23:26)
[2019-01-17] MEDS: FENTAnyl (DRIP) 1000 mcg/100mL 100 ML IV ×2 (05:44→17:42)
[2019-01-17] MEDS ORDERED: FUROSEMIDE 40 MG INJ (06:39)
[2019-01-17] MEDS: FUROSEMIDE 40 MG INJ IV (06:48)
[2019-01-17 07:23] LABS: ANISOCYTOSIS 1+ (0-0); BAND NEUTROPHILS #M 0.8 10^3/ul (0.0-0.6); BAND NEUTROPHILS % (M) 8 % (0-4); BASOPHIL #M 0.1 10^3/ul (0.0-0.0); BASOPHILS % (M) 1 % (0-2); BURR CELLS 1+ (0-0); EOSINOPHILS % (M) 3 % (0-7); ERYTHROBLAST% (NRBC) (M) 2 % (0-0); LYMPHOCYTES #M 0.8 10^3/ul (0.8-2.9); LYMPHOCYTES % (M) 8 % (15-51); METAMYELOCYTES #M 0.1 10^3/ul (0.0-0.0); METAMYELOCYTES %M 1 % (0-0); MONOCYTE #M 0.6 10^3/ul (0.3-0.9); MONOCYTES % (M) 6 % (0-11); PLATELET ESTIMATE DECREASED; POLYCHROMASIA 2+ (0-0); SEG NEUT #M 7.5 10^3/ul (1.6-7.5); SEGMENTED NEUTROPHILS (M) % 73 % (39-77); SMUDGE%M 72 % (0-0)
[2019-01-17] MEDS: MULTIVITAMINS 30 ML CUP NGT (08:27)
[2019-01-17] MEDS: FOLIC ACID 1 MG TAB NGT (08:27)
[2019-01-17] MEDS: ASCORBIC ACID 500 MG TAB NGT (08:28)
[2019-01-17] MEDS: DOCUSATE SODIUM 100 MG CAP PO ×2 (08:28→19:37)
[2019-01-17] MEDS: ASPIRIN 81 MG TAB NGT (08:28)
[2019-01-17] MEDS: ZINC SULFATE 220 MG CAP NGT (08:28)
[2019-01-17 08:32] LABS: AADO2 Arterial 139.8 mmHg (7.0-24.0); Allen Test ACCEPTAB; Arterial Base Excess -4.9 mmol/L (-3.0-3); Arterial Blood Gas Oxygen Sat 97.1 mmHG (95.0-98.0); Arterial COHb 0.3 % (0.0-3.0); Arterial Fraction of Oxyhgb 96.3 % (93.0-99.0); Arterial MetHb 0.5 % (0.0-1.5); Arterial pCO2 35.8 mmhg (35-45); MODE VENT - AC; Site Right Radial
[2019-01-17] MEDS: ACCU-CHEK XX ×2 (08:40→20:48)
[2019-01-17] MEDS: TICAGRELOR 90 MG TABLET PO ×2 (08:42→20:10)
[2019-01-17] MEDS: POTASSIUM CHLORIDE 100 ML IVPB ×2 (09:42→11:52)
[2019-01-17] MEDS: PANTOPRAZOLE 40 MG INJ IV (09:42)
[2019-01-17] MEDS: ACETAMINOPHEN 650MG/20.3ML CUP PO (11:55)
[2019-01-17] MEDS: LIDOCAINE 1% (MPF) 5 ML VIAL SC ×2 (12:30→14:45)
[2019-01-17 13:26] LABS: AADO2 Arterial 147.8 mmHg (7.0-24.0); Allen Test ACCEPTAB; Arterial Base Excess -5.2 mmol/L (-3.0-3); Arterial Blood Gas Oxygen Sat 96.1 mmHG (95.0-98.0); Arterial COHb 0.3 % (0.0-3.0); Arterial Fraction of Oxyhgb 95.4 % (93.0-99.0); Arterial HCO3 20.6 mmol/L (22.0-26.0); Arterial MetHb 0.4 % (0.0-1.5); Arterial pCO2 40.9 mmhg (35-45); MODE VENT - AC; Site Right Radial
[2019-01-17] MEDS: LANSOPRAZOLE 30 MG CAP PEG (18:37)
[2019-01-17] MEDS: ATORVASTATIN 80 MG TAB PO (20:07)
[2019-01-18] MEDS: DEXMEDETOMIDINE HCL 200 MCG in SOD CHLORIDE 0.9% 48 ML IV ×6 (02:15→23:49)
[2019-01-18] MEDS: IPRATROPIUM (HFA) 12.9 GM INHALER INH ×4 (02:58→19:37)
[2019-01-18 04:55] LABS: ADD MAN DIFF? NO
[2019-01-18 04:58] LABS: ABNORMAL IP MESSAGE 1; BASOPHIL # 0.1 10^3/ul (0.0-0.1); BASOPHILS % 0.6 % (0.0-2.0); EOSINOPHILS # 0.2 10^3/ul (0.0-0.5); EOSINOPHILS % 1.3 % (0.0-7.0); HEMATOCRIT 29.8 % (37.0-47.0); HEMOGLOBIN 9.3 g/dl (12.0-16.0); LYMPHOCYTES # 1.1 10^3/ul (0.8-2.9); LYMPHOCYTES % 6.8 % (15.0-51.0); MEAN CORPUSCULAR HEMOGLOBIN 27.7 pg (29.0-33.0); MEAN CORPUSCULAR HGB CONC 31.2 g/dl (32.0-37.0); MEAN CORPUSCULAR VOLUME 88.7 fl (82.0-101.0); MONOCYTE # 0.7 10^3/ul (0.3-0.9); MONOCYTES % 4.5 % (0.0-11.0); NEUTROPHIL # 12.7 10^3/ul (1.6-7.5); NEUTROPHILS % 82.3 % (39.0-77.0); NUCLEATED RED BLOOD CELLS # 0.1 10^3/ul (0.0-0.0); NUCLEATED RED BLOOD CELLS% 0.5 /100WBC (0.0-0.0); PLATELET COUNT 52 10^3/UL (140-415); RED BLOOD COUNT 3.36 10^6/ul (4.20-5.40); RED CELL DISTRIBUTION WIDTH 17.4 % (11.5-14.5)
[2019-01-18 04:58] LABS: WHITE BLOOD COUNT 15.5 10^3/ul (4.8-10.8)
[2019-01-18 05:07] LABS: AADO2 Arterial 140.8 mmHg (7.0-24.0); Allen Test ACCEPTAB; Arterial Base Excess -6.5 mmol/L (-3.0-3); Arterial Blood Gas Oxygen Sat 96.4 mmHG (95.0-98.0); Arterial COHb 0 % (0.0-3.0); Arterial MetHb 0.4 % (0.0-1.5); Arterial pCO2 44.2 mmhg (35-45); MODE VENT - AC; Site Right Radial
[2019-01-18 05:18] LABS: LACTIC ACID 0.8 mmol/L (0.5-2.0)
[2019-01-18 05:22] LABS: ANION GAP 11 (5-13); BLOOD UREA NITROGEN 66 mg/dl (7-20); CALCIUM 7.2 mg/dl (8.4-10.2); CARBON DIOXIDE 19 mmol/L (21-31); CHLORIDE 112 mmol/L (97-110); GLUCOSE 75 mg/dl (70-220); PHOSPHORUS 8.4 mg/dl (2.5-4.9); POTASSIUM 4.7 mmol/L (3.5-5.1); SODIUM 142 mmol/L (135-144)
[2019-01-18] MEDS: ARTIFICIAL TEARS 15 ML OPH BOTH EYES ×4 (05:24→23:49)
[2019-01-18] MEDS: OCULAR LUBRICANT 3.5 GM OPH OINT BOTH EYES ×4 (05:24→23:49)
[2019-01-18] MEDS: LANSOPRAZOLE 30 MG CAP PEG ×2 (05:24→17:08)
[2019-01-18] MEDS: PIPER-TAZO 2.25 GM/NS 50 ML IVPB ×3 (05:24→20:22)
[2019-01-18 05:27] LABS: Estimated GFR 10 mL/min (>60)
[2019-01-18 05:31] LABS: POSITIVE DIFF @See below
[2019-01-18 05:33] LABS: CREATININE 4.77 mg/dl (0.44-1.00)
[2019-01-18 06:03] LABS: VANCOMYCIN,RANDOM 13.7 ug/ml
[2019-01-18] MEDS: FENTAnyl (DRIP) 1000 mcg/100mL 100 ML IV (06:16)
[2019-01-18] MEDS: DOCUSATE SODIUM 100 MG CAP PO ×2 (08:06→20:12)
[2019-01-18] MEDS: ASCORBIC ACID 500 MG TAB NGT (08:06)
[2019-01-18] MEDS: MULTIVITAMINS 30 ML CUP NGT (08:06)
[2019-01-18] MEDS: FOLIC ACID 1 MG TAB NGT (08:06)
[2019-01-18] MEDS: ASPIRIN 81 MG TAB NGT (08:07)
[2019-01-18] MEDS: ZINC SULFATE 220 MG CAP NGT (08:08)
[2019-01-18] MEDS: TICAGRELOR 90 MG TABLET PO ×2 (08:08→20:13)
[2019-01-18] MEDS: ACCU-CHEK XX ×2 (08:09→20:29)
[2019-01-18] MEDS: ALBUTEROL HFA 8 GM INHALER INH ×3 (08:21→19:37)
[2019-01-18] MEDS: VANCOMYCIN 1 GM 250 ML IVPB (10:13)
[2019-01-18 10:33] LABS: HAAIG REFLEX REFLEX FILED
[2019-01-18 12:07] LABS: HEPATITIS B SURFACE ANTIGEN NEGATIVE (NEGATIVE)
[2019-01-18 12:27] LABS: HEPATITIS B CORE ANTIBODY NEGATIVE (NEGATIVE); HEPATITIS C VIRAL ANTIBODY NEGATIVE (NEGATIVE)
[2019-01-18] MEDS: HEPARIN 1000 UNITS/ML 10 ML INJ CATHETER (15:44)
[2019-01-18] MEDS: ATORVASTATIN 80 MG TAB PO (20:12)
[2019-01-19] MEDS: IPRATROPIUM (HFA) 12.9 GM INHALER INH ×4 (01:23→20:27)
[2019-01-19] MEDS: DEXMEDETOMIDINE HCL 200 MCG in SOD CHLORIDE 0.9% 48 ML IV ×3 (02:57→12:39)
[2019-01-19] MEDS: FENTAnyl (DRIP) 1000 mcg/100mL 100 ML IV ×2 (03:07→17:54)
[2019-01-19 05:15] LABS: AADO2 Arterial 142.8 mmHg (7.0-24.0); Allen Test ACCEPTAB; Arterial Base Excess -3.5 mmol/L (-3.0-3); Arterial Blood Gas Oxygen Sat 96.5 mmHG (95.0-98.0); Arterial COHb 0.4 % (0.0-3.0); Arterial Fraction of Oxyhgb 95.6 % (93.0-99.0); Arterial HCO3 22.3 mmol/L (22.0-26.0); Arterial MetHb 0.5 % (0.0-1.5); Arterial pCO2 43.4 mmhg (35-45); MODE VENT - AC; Site Left Radial
[2019-01-19 05:31] LABS: WHITE BLOOD COUNT 16.7 10^3/ul (4.8-10.8)
[2019-01-19 05:31] LABS: ABNORMAL IP MESSAGE 1; HEMATOCRIT 27.7 % (37.0-47.0); HEMOGLOBIN 8.9 g/dl (12.0-16.0); MEAN CORPUSCULAR HGB CONC 32.1 g/dl (32.0-37.0); MEAN CORPUSCULAR VOLUME 87.1 fl (82.0-101.0); NUCLEATED RED BLOOD CELLS% 0.2 /100WBC (0.0-0.0); RED BLOOD COUNT 3.18 10^6/ul (4.20-5.40); RED CELL DISTRIBUTION WIDTH 17.3 % (11.5-14.5)
[2019-01-19] MEDS: ARTIFICIAL TEARS 15 ML OPH BOTH EYES ×4 (05:33→23:37)
[2019-01-19] MEDS: OCULAR LUBRICANT 3.5 GM OPH OINT BOTH EYES ×4 (05:33→23:37)
[2019-01-19] MEDS: PIPER-TAZO 2.25 GM/NS 50 ML IVPB ×3 (05:33→21:22)
[2019-01-19] MEDS: LANSOPRAZOLE 30 MG CAP PEG ×2 (05:33→17:47)
[2019-01-19 05:49] LABS: LACTIC ACID 0.7 mmol/L (0.5-2.0)
[2019-01-19 05:52] LABS: ANION GAP 9 (5-13); BLOOD UREA NITROGEN 58 mg/dl (7-20); CALCIUM 7.9 mg/dl (8.4-10.2); CARBON DIOXIDE 24 mmol/L (21-31); CHLORIDE 108 mmol/L (97-110); CREATININE 4.89 mg/dl (0.44-1.00); Estimated GFR 10 mL/min (>60); GLUCOSE 122 mg/dl (70-220); MAGNESIUM 2.8 mg/dl (1.7-2.5); PHOSPHORUS 6.4 mg/dl (2.5-4.9); POTASSIUM 4.7 mmol/L (3.5-5.1); SODIUM 141 mmol/L (135-144)
[2019-01-19 05:54] LABS: PLATELET COUNT 68 10^3/UL (140-415); POSITIVE DIFF @See below
[2019-01-19 05:55] LABS: ADD MAN DIFF? YES
[2019-01-19 07:09] LABS: BAND NEUTROPHILS #M 1.1 10^3/ul (0.0-0.6); BAND NEUTROPHILS % (M) 7 % (0-4); ERYTHROBLAST% (NRBC) (M) 1 % (0-0); GIANT THROMBO% (M) 4 % (0-0); LYMPHOCYTES % (M) 12 % (15-51); MICROCYTOSIS 1+ (0-0); MONOCYTE #M 0.1 10^3/ul (0.3-0.9); MONOCYTES % (M) 1 % (0-11); PLATELET ESTIMATE DECREASED; POLYCHROMASIA 1+ (0-0); SEG NEUT #M 13.5 10^3/ul (1.6-7.5); SEGMENTED NEUTROPHILS (M) % 80 % (39-77); SMUDGE%M 89 % (0-0)
[2019-01-19] MEDS: FOLIC ACID 1 MG TAB NGT (08:20)
[2019-01-19] MEDS: ZINC SULFATE 220 MG CAP NGT (08:20)
[2019-01-19] MEDS: MULTIVITAMINS 30 ML CUP NGT (08:21)
[2019-01-19] MEDS: ASPIRIN 81 MG TAB NGT (08:21)
[2019-01-19] MEDS: ASCORBIC ACID 500 MG TAB NGT (08:21)
[2019-01-19] MEDS: TICAGRELOR 90 MG TABLET PO ×2 (08:22→21:40)
[2019-01-19] MEDS: DOCUSATE SODIUM 100 MG CAP PO ×2 (08:25→21:22)
[2019-01-19] MEDS: ACCU-CHEK XX ×2 (09:13→21:00)
[2019-01-19] MEDS: ALBUTEROL HFA 8 GM INHALER INH ×3 (09:36→20:27)
[2019-01-19] MEDS: HEPARIN 1000 UNITS/ML 10 ML INJ CATHETER (13:26)
[2019-01-19 15:23] LABS: AMMONIA < 9 umol/l (9-30)
[2019-01-19] MEDS: PROPOFOL 100 ML IV (16:06)
[2019-01-19] MEDS: ATORVASTATIN 80 MG TAB PO (21:22)
[2019-01-20] MEDS: IPRATROPIUM (HFA) 12.9 GM INHALER INH ×4 (02:00→19:37)
[2019-01-20] MEDS: PROPOFOL 100 ML IV ×4 (04:00→23:01)
[2019-01-20 05:22] LABS: ADD MAN DIFF? NO
[2019-01-20 05:24] LABS: ABNORMAL IP MESSAGE 1; BASOPHIL # 0.1 10^3/ul (0.0-0.1); BASOPHILS % 0.4 % (0.0-2.0); EOSINOPHILS # 0.2 10^3/ul (0.0-0.5); EOSINOPHILS % 0.9 % (0.0-7.0); HEMATOCRIT 28.9 % (37.0-47.0); HEMOGLOBIN 9.1 g/dl (12.0-16.0); LYMPHOCYTES % 5.5 % (15.0-51.0); MEAN CORPUSCULAR HEMOGLOBIN 27.7 pg (29.0-33.0); MEAN CORPUSCULAR HGB CONC 31.5 g/dl (32.0-37.0); MEAN CORPUSCULAR VOLUME 87.8 fl (82.0-101.0); MEAN PLATELET VOLUME 12.8 fl (7.4-10.4); MONOCYTE # 0.9 10^3/ul (0.3-0.9); MONOCYTES % 4.7 % (0.0-11.0); NEUTROPHIL # 15.4 10^3/ul (1.6-7.5); NEUTROPHILS % 83.5 % (39.0-77.0); NUCLEATED RED BLOOD CELLS% 0.1 /100WBC (0.0-0.0); PLATELET COUNT 74 10^3/UL (140-415); RED BLOOD COUNT 3.29 10^6/ul (4.20-5.40)
[2019-01-20 05:24] LABS: WHITE BLOOD COUNT 18.5 10^3/ul (4.8-10.8)
[2019-01-20 05:31] LABS: POSITIVE DIFF @See below
[2019-01-20] MEDS: LANSOPRAZOLE 30 MG CAP PEG ×2 (05:40→17:45)
[2019-01-20] MEDS: PIPER-TAZO 2.25 GM/NS 50 ML IVPB ×3 (05:40→20:24)
[2019-01-20] MEDS: ARTIFICIAL TEARS 15 ML OPH BOTH EYES ×4 (05:40→23:02)
[2019-01-20] MEDS: OCULAR LUBRICANT 3.5 GM OPH OINT BOTH EYES ×4 (05:40→23:02)
[2019-01-20 05:50] LABS: ANION GAP 11 (5-13); BLOOD UREA NITROGEN 45 mg/dl (7-20); CALCIUM 8.3 mg/dl (8.4-10.2); CARBON DIOXIDE 26 mmol/L (21-31); CHLORIDE 103 mmol/L (97-110); CREATININE 4.21 mg/dl (0.44-1.00); Estimated GFR 12 mL/min (>60); GLUCOSE 125 mg/dl (70-220); MAGNESIUM 2.5 mg/dl (1.7-2.5); PHOSPHORUS 4.6 mg/dl (2.5-4.9); POTASSIUM 4.7 mmol/L (3.5-5.1); SODIUM 140 mmol/L (135-144)
[2019-01-20] MEDS: ASPIRIN 81 MG TAB NGT (08:03)
[2019-01-20] MEDS: FOLIC ACID 1 MG TAB NGT (08:04)
[2019-01-20] MEDS: ZINC SULFATE 220 MG CAP NGT (08:04)
[2019-01-20] MEDS: ASCORBIC ACID 500 MG TAB NGT (08:04)
[2019-01-20] MEDS: DOCUSATE SODIUM 100 MG CAP PO ×2 (08:04→20:16)
[2019-01-20] MEDS: MULTIVITAMINS 30 ML CUP NGT (08:04)
[2019-01-20] MEDS: TICAGRELOR 90 MG TABLET PO ×2 (08:06→20:18)
[2019-01-20] MEDS: ALBUTEROL HFA 8 GM INHALER INH ×3 (08:32→19:37)
[2019-01-20] MEDS: ACCU-CHEK XX ×2 (08:36→20:35)
[2019-01-20] MEDS: HEPARIN 1000 UNITS/ML 10 ML INJ CATHETER (14:44)
[2019-01-20] MEDS: FENTAnyl (DRIP) 1000 mcg/100mL 100 ML IV (15:31)
[2019-01-20] MEDS: CIPROFLOXACIN HCL OTIC DROP 0.25 ML LEFT EAR ×2 (17:45→20:16)
[2019-01-20] MEDS: ATORVASTATIN 80 MG TAB PO (20:16)
[2019-01-21] MEDS: FENTAnyl (DRIP) 1000 mcg/100mL 100 ML IV ×2 (01:16→13:40)
[2019-01-21] MEDS: IPRATROPIUM (HFA) 12.9 GM INHALER INH ×5 (01:28→19:40)
[2019-01-21] MEDS: PROPOFOL 100 ML IV ×2 (03:55→10:19)
[2019-01-21] MEDS: PIPER-TAZO 2.25 GM/NS 50 ML IVPB ×3 (05:27→20:16)
[2019-01-21] MEDS: LANSOPRAZOLE 30 MG CAP PEG ×2 (05:27→18:03)
[2019-01-21 05:28] LABS: WHITE BLOOD COUNT 16.3 10^3/ul (4.8-10.8)
[2019-01-21 05:28] LABS: ABNORMAL IP MESSAGE 1; HEMATOCRIT 26.7 % (37.0-47.0); HEMOGLOBIN 8.6 g/dl (12.0-16.0); MEAN CORPUSCULAR HEMOGLOBIN 28.3 pg (29.0-33.0); MEAN CORPUSCULAR HGB CONC 32.2 g/dl (32.0-37.0); MEAN CORPUSCULAR VOLUME 87.8 fl (82.0-101.0); MEAN PLATELET VOLUME 13.6 fl (7.4-10.4); NUCLEATED RED BLOOD CELLS% 0.1 /100WBC (0.0-0.0); PLATELET COUNT 99 10^3/UL (140-415); RED BLOOD COUNT 3.04 10^6/ul (4.20-5.40); RED CELL DISTRIBUTION WIDTH 17.2 % (11.5-14.5)
[2019-01-21] MEDS: OCULAR LUBRICANT 3.5 GM OPH OINT BOTH EYES ×4 (05:28→23:13)
[2019-01-21] MEDS: ARTIFICIAL TEARS 15 ML OPH BOTH EYES ×4 (05:28→23:13)
[2019-01-21 05:49] LABS: ADD MAN DIFF? YES; POSITIVE DIFF @See below
[2019-01-21 06:10] LABS: ANION GAP 11 (5-13); BLOOD UREA NITROGEN 43 mg/dl (7-20); CALCIUM 8.7 mg/dl (8.4-10.2); CARBON DIOXIDE 29 mmol/L (21-31); CHLORIDE 99 mmol/L (97-110); CREATININE 4.04 mg/dl (0.44-1.00); Estimated GFR 12 mL/min (>60); GLUCOSE 114 mg/dl (70-220); MAGNESIUM 2.5 mg/dl (1.7-2.5); PHOSPHORUS 4.4 mg/dl (2.5-4.9); POTASSIUM 4.5 mmol/L (3.5-5.1); SODIUM 139 mmol/L (135-144)
[2019-01-21 07:37] LABS: ANISOCYTOSIS 2+ (0-0); BAND NEUTROPHILS #M 1.7 10^3/ul (0.0-0.6); BAND NEUTROPHILS % (M) 11 % (0-4); ERYTHROBLAST% (NRBC) (M) 2 % (0-0); GIANT THROMBO% (M) 2 % (0-0); LYMPHOCYTES #M 0.4 10^3/ul (0.8-2.9); LYMPHOCYTES % (M) 3 % (15-51); MICROCYTOSIS 1+ (0-0); MONOCYTE #M 0.4 10^3/ul (0.3-0.9); MONOCYTES % (M) 3 % (0-11); MYELOCYTES #M 0.3 10^3/ul (0.0-0.0); MYELOCYTES % (M) 2 % (0-0); PLATELET ESTIMATE DECREASED; POIKILOCYTOSIS 3+ (0-0); POLYCHROMASIA 1+ (0-0); SEG NEUT #M 13.5 10^3/ul (1.6-7.5); SEGMENTED NEUTROPHILS (M) % 81 % (39-77); SMUDGE%M 7 % (0-0)
[2019-01-21] MEDS: ALBUTEROL HFA 8 GM INHALER INH ×4 (08:00→19:40)
[2019-01-21] MEDS: ZINC SULFATE 220 MG CAP NGT (08:44)
[2019-01-21] MEDS: ASCORBIC ACID 500 MG TAB NGT (08:44)
[2019-01-21] MEDS: MULTIVITAMINS 30 ML CUP NGT (08:44)
[2019-01-21] MEDS: ASPIRIN 81 MG TAB NGT (08:44)
[2019-01-21] MEDS: FOLIC ACID 1 MG TAB NGT (08:44)
[2019-01-21] MEDS: DOCUSATE SODIUM 100 MG CAP PO ×2 (08:45→20:08)
[2019-01-21] MEDS: TICAGRELOR 90 MG TABLET PO ×2 (08:48→20:13)
[2019-01-21] MEDS: ACCU-CHEK XX ×2 (09:04→20:38)
[2019-01-21 10:26] LABS: PLATELET COUNT 107 10^3/UL (140-415)
[2019-01-21 10:45] LABS: PROTIME 13.3 Sec (11.9-14.9)
[2019-01-21 10:46] LABS: PARTIAL THROMBOPLASTIN TIME 40.5 Sec (23.0-35.0); THROMBIN TIME 18.1 SEC (13.8-19.1)
[2019-01-21] MEDS: MIDAZOLAM (DRIP) 50 mg/50 mL 50 ML IV ×2 (11:49→18:08)
[2019-01-21] MEDS: CIPROFLOXACIN HCL OTIC DROP 0.25 ML LEFT EAR ×2 (11:58→20:08)
[2019-01-21 14:44] LABS: HEMATOCRIT 27.1 % (37.0-47.0); HEMOGLOBIN 8.5 g/dl (12.0-16.0)
[2019-01-21] MEDS: ATORVASTATIN 80 MG TAB PO (20:08)
[2019-01-21] MEDS: LABETALOL HCL 20MG INJ IV (20:09)
[2019-01-21 21:49] LABS: HEMATOCRIT 29.3 % (37.0-47.0); HEMOGLOBIN 9.2 g/dl (12.0-16.0)
[2019-01-22] MEDS: IPRATROPIUM (HFA) 12.9 GM INHALER INH ×4 (01:27→19:17)
[2019-01-22] MEDS: MIDAZOLAM (DRIP) 50 mg/50 mL 50 ML IV (03:51)
[2019-01-22] MEDS: FENTAnyl (DRIP) 1000 mcg/100mL 100 ML IV (03:54)
[2019-01-22] MEDS: LABETALOL HCL 20MG INJ IV (05:14)
[2019-01-22] MEDS: OCULAR LUBRICANT 3.5 GM OPH OINT BOTH EYES ×4 (05:14→23:04)
[2019-01-22] MEDS: LANSOPRAZOLE 30 MG CAP PEG ×2 (05:14→18:15)
[2019-01-22] MEDS: ARTIFICIAL TEARS 15 ML OPH BOTH EYES ×4 (05:14→23:04)
[2019-01-22] MEDS: PIPER-TAZO 2.25 GM/NS 50 ML IVPB ×3 (05:14→20:47)
[2019-01-22 05:39] LABS: ADD MAN DIFF? NO
[2019-01-22 05:46] LABS: WHITE BLOOD COUNT 12.5 10^3/ul (4.8-10.8)
[2019-01-22 05:46] LABS: ABNORMAL IP MESSAGE 1; BASOPHILS % 0.3 % (0.0-2.0); EOSINOPHILS # 0.4 10^3/ul (0.0-0.5); EOSINOPHILS % 3.1 % (0.0-7.0); HEMATOCRIT 28.9 % (37.0-47.0); LYMPHOCYTES # 1.1 10^3/ul (0.8-2.9); LYMPHOCYTES % 8.9 % (15.0-51.0); MEAN CORPUSCULAR HEMOGLOBIN 27.2 pg (29.0-33.0); MEAN CORPUSCULAR HGB CONC 31.1 g/dl (32.0-37.0); MEAN CORPUSCULAR VOLUME 87.3 fl (82.0-101.0); MEAN PLATELET VOLUME 13.8 fl (7.4-10.4); MONOCYTE # 1.1 10^3/ul (0.3-0.9); MONOCYTES % 8.6 % (0.0-11.0); NEUTROPHIL # 9.4 10^3/ul (1.6-7.5); NEUTROPHILS % 74.9 % (39.0-77.0); PLATELET COUNT 130 10^3/UL (140-415); RED BLOOD COUNT 3.31 10^6/ul (4.20-5.40)
[2019-01-22 05:49] LABS: POSITIVE DIFF @See below
[2019-01-22 06:08] LABS: ANION GAP 11 (5-13); BLOOD UREA NITROGEN 43 mg/dl (7-20); CALCIUM 8.6 mg/dl (8.4-10.2); CARBON DIOXIDE 30 mmol/L (21-31); CHLORIDE 99 mmol/L (97-110); CREATININE 3.92 mg/dl (0.44-1.00); Estimated GFR 13 mL/min (>60); GLUCOSE 119 mg/dl (70-220); MAGNESIUM 2.3 mg/dl (1.7-2.5); PHOSPHORUS 3.1 mg/dl (2.5-4.9); POTASSIUM 4.3 mmol/L (3.5-5.1); SODIUM 140 mmol/L (135-144)
[2019-01-22] MEDS ORDERED: hydrALAzine 20 MG INJ IV (07:00)
[2019-01-22 07:38] LABS: AADO2 Arterial 142.4 mmHg (7.0-24.0); Allen Test ACCEPTAB; Arterial Base Excess 2.7 mmol/L (-3.0-3); Arterial Blood Gas Oxygen Sat 95.6 mmHG (95.0-98.0); Arterial COHb 0.5 % (0.0-3.0); Arterial Fraction of Oxyhgb 94.9 % (93.0-99.0); Arterial HCO3 28.8 mmol/L (22.0-26.0); Arterial MetHb 0.2 % (0.0-1.5); Arterial pCO2 52.6 mmhg (35-45); MODE VENT - AC; Site Right Radial
[2019-01-22] MEDS: MULTIVITAMINS 30 ML CUP NGT (08:10)
[2019-01-22] MEDS: ASPIRIN 81 MG TAB NGT (08:10)
[2019-01-22] MEDS: ASCORBIC ACID 500 MG TAB NGT (08:10)
[2019-01-22] MEDS: FOLIC ACID 1 MG TAB NGT (08:10)
[2019-01-22] MEDS: ZINC SULFATE 220 MG CAP NGT (08:10)
[2019-01-22] MEDS: CIPROFLOXACIN HCL OTIC DROP 0.25 ML LEFT EAR ×2 (08:10→20:34)
[2019-01-22] MEDS: DOCUSATE SODIUM 100 MG CAP PO ×2 (08:10→20:41)
[2019-01-22] MEDS: TICAGRELOR 90 MG TABLET PO ×2 (08:19→20:46)
[2019-01-22] MEDS: ACCU-CHEK XX ×2 (08:20→20:49)
[2019-01-22] MEDS: ALBUTEROL HFA 8 GM INHALER INH ×3 (08:35→19:19)
[2019-01-22 18:06] LABS: ERYTHROCYTE SEDIMENTATION RATE > 130 mm/Hr (0-20)
[2019-01-22] MEDS: HEPARIN 1000 UNITS/ML 10 ML INJ CATHETER (20:33)
[2019-01-22] MEDS: ATORVASTATIN 80 MG TAB PO (20:39)
[2019-01-22] MEDS: metroNIDAZOLE 500 MG/NS (PMX) 100 ML IVPB (21:18)
[2019-01-22] MEDS: hydrALAzine 20 MG INJ IV (23:04)
[2019-01-23] MEDS: IPRATROPIUM (HFA) 12.9 GM INHALER INH ×4 (01:11→20:38)
[2019-01-23] MEDS: LANSOPRAZOLE 30 MG CAP PEG ×2 (05:21→18:26)
[2019-01-23] MEDS: ARTIFICIAL TEARS 15 ML OPH BOTH EYES ×4 (05:21→23:36)
[2019-01-23] MEDS: PIPER-TAZO 2.25 GM/NS 50 ML IVPB ×3 (05:21→20:46)
[2019-01-23] MEDS: OCULAR LUBRICANT 3.5 GM OPH OINT BOTH EYES ×4 (05:21→23:36)
[2019-01-23] MEDS: metroNIDAZOLE 500 MG/NS (PMX) 100 ML IVPB ×3 (05:21→20:46)
[2019-01-23 05:30] LABS: ADD MAN DIFF? NO
[2019-01-23 05:31] LABS: WHITE BLOOD COUNT 12.5 10^3/ul (4.8-10.8)
[2019-01-23 05:31] LABS: ABNORMAL IP MESSAGE 1; BASOPHIL # 0.1 10^3/ul (0.0-0.1); BASOPHILS % 0.4 % (0.0-2.0); EOSINOPHILS # 0.2 10^3/ul (0.0-0.5); EOSINOPHILS % 1.8 % (0.0-7.0); HEMATOCRIT 29.5 % (37.0-47.0); HEMOGLOBIN 9.5 g/dl (12.0-16.0); LYMPHOCYTES # 1.1 10^3/ul (0.8-2.9); LYMPHOCYTES % 8.7 % (15.0-51.0); MEAN CORPUSCULAR HEMOGLOBIN 27.5 pg (29.0-33.0); MEAN CORPUSCULAR HGB CONC 32.2 g/dl (32.0-37.0); MEAN CORPUSCULAR VOLUME 85.5 fl (82.0-101.0); MEAN PLATELET VOLUME 13.5 fl (7.4-10.4); MONOCYTE # 1.1 10^3/ul (0.3-0.9); MONOCYTES % 8.4 % (0.0-11.0); NEUTROPHIL # 9.8 10^3/ul (1.6-7.5); PLATELET COUNT 174 10^3/UL (140-415); RED BLOOD COUNT 3.45 10^6/ul (4.20-5.40); RED CELL DISTRIBUTION WIDTH 16.5 % (11.5-14.5)
[2019-01-23 05:43] LABS: POSITIVE DIFF @See below
[2019-01-23 06:05] LABS: ANION GAP 11 (5-13); BLOOD UREA NITROGEN 41 mg/dl (7-20); CALCIUM 8.7 mg/dl (8.4-10.2); CARBON DIOXIDE 30 mmol/L (21-31); CHLORIDE 98 mmol/L (97-110); CREATININE 3.62 mg/dl (0.44-1.00); Estimated GFR 14 mL/min (>60); GLUCOSE 123 mg/dl (70-220); MAGNESIUM 2.3 mg/dl (1.7-2.5); PHOSPHORUS 2.6 mg/dl (2.5-4.9); SODIUM 139 mmol/L (135-144)
[2019-01-23] MEDS: hydrALAzine 20 MG INJ IV ×2 (06:36→18:30)
[2019-01-23] MEDS: ALBUTEROL HFA 8 GM INHALER INH ×3 (08:45→20:38)
[2019-01-23] MEDS: DOCUSATE SODIUM 100 MG CAP PO ×2 (09:00→20:14)
[2019-01-23] MEDS: ACCU-CHEK XX ×2 (10:48→20:46)
[2019-01-23] MEDS: CIPROFLOXACIN HCL OTIC DROP 0.25 ML LEFT EAR ×2 (10:48→20:14)
[2019-01-23] MEDS: HEPARIN 1000 UNITS/ML 10 ML INJ CATHETER (13:36)
[2019-01-23] MEDS: FOLIC ACID 1 MG TAB NGT (14:54)
[2019-01-23] MEDS: ASPIRIN 81 MG TAB NGT (14:55)
[2019-01-23] MEDS: ASCORBIC ACID 500 MG TAB NGT (14:55)
[2019-01-23] MEDS: ZINC SULFATE 220 MG CAP NGT (14:55)
[2019-01-23] MEDS: MULTIVITAMINS 30 ML CUP NGT (14:58)
[2019-01-23] MEDS: TICAGRELOR 90 MG TABLET PO ×2 (15:03→20:16)
[2019-01-23 16:15] LABS: RAPID PLASMA REAGIN NONREACTIVE (NR)
[2019-01-23] MEDS: morphine 2 MG INJ IV (18:30)
[2019-01-23] MEDS: ATORVASTATIN 80 MG TAB PO (20:14)
[2019-01-23] MEDS: MIDAZOLAM (DRIP) 50 mg/50 mL 50 ML IV (20:26)
[2019-01-23] MEDS: FENTAnyl (DRIP) 1000 mcg/100mL 100 ML IV (20:44)
[2019-01-23 20:48] LABS: AADO2 Arterial 338.5 mmHg (7.0-24.0); Allen Test ACCEPTAB; Arterial Blood Gas Oxygen Sat 88.8 mmHG (95.0-98.0); Arterial COHb 0.1 % (0.0-3.0); Arterial Fraction of Oxyhgb 88.5 % (93.0-99.0); Arterial HCO3 29.3 mmol/L (22.0-26.0); Arterial MetHb 0.2 % (0.0-1.5); Arterial pCO2 57.6 mmhg (35-45); MODE VENT - PC; Site Left Radial
[2019-01-24] MEDS: IPRATROPIUM (HFA) 12.9 GM INHALER INH ×4 (01:42→20:23)
[2019-01-24] MEDS: ALBUTEROL HFA 8 GM INHALER INH ×4 (01:44→20:23)
[2019-01-24] MEDS: MIDAZOLAM (DRIP) 50 mg/50 mL 50 ML IV ×2 (02:23→23:11)
[2019-01-24 04:13] LABS: ADD MAN DIFF? NO
[2019-01-24 04:17] LABS: ABNORMAL IP MESSAGE 1; BASOPHIL # 0.1 10^3/ul (0.0-0.1); BASOPHILS % 0.3 % (0.0-2.0); EOSINOPHILS # 0.1 10^3/ul (0.0-0.5); EOSINOPHILS % 0.4 % (0.0-7.0); HEMATOCRIT 27.8 % (37.0-47.0); HEMOGLOBIN 8.6 g/dl (12.0-16.0); LYMPHOCYTES # 0.9 10^3/ul (0.8-2.9); LYMPHOCYTES % 5.9 % (15.0-51.0); MEAN CORPUSCULAR HEMOGLOBIN 27.4 pg (29.0-33.0); MEAN CORPUSCULAR HGB CONC 30.9 g/dl (32.0-37.0); MEAN CORPUSCULAR VOLUME 88.5 fl (82.0-101.0); MONOCYTE # 0.8 10^3/ul (0.3-0.9); MONOCYTES % 5.6 % (0.0-11.0); NEUTROPHIL # 12.5 10^3/ul (1.6-7.5); NEUTROPHILS % 86.4 % (39.0-77.0); PLATELET COUNT 186 10^3/UL (140-415); RED BLOOD COUNT 3.14 10^6/ul (4.20-5.40); RED CELL DISTRIBUTION WIDTH 16.5 % (11.5-14.5)
[2019-01-24 04:17] LABS: WHITE BLOOD COUNT 14.5 10^3/ul (4.8-10.8)
[2019-01-24 04:23] LABS: POSITIVE DIFF @See below
[2019-01-24 04:38] LABS: ANION GAP 6 (5-13); BLOOD UREA NITROGEN 52 mg/dl (7-20); CALCIUM 8.7 mg/dl (8.4-10.2); CARBON DIOXIDE 30 mmol/L (21-31); CHLORIDE 103 mmol/L (97-110); GLUCOSE 136 mg/dl (70-220); MAGNESIUM 2.3 mg/dl (1.7-2.5); PHOSPHORUS 6.9 mg/dl (2.5-4.9); POTASSIUM 4.9 mmol/L (3.5-5.1); SODIUM 139 mmol/L (135-144)
[2019-01-24 04:43] LABS: Estimated GFR 16 mL/min (>60)
[2019-01-24 04:51] LABS: CREATININE 3.23 mg/dl (0.44-1.00)
[2019-01-24] MEDS: metroNIDAZOLE 500 MG/NS (PMX) 100 ML IVPB ×3 (05:05→21:34)
[2019-01-24] MEDS: PIPER-TAZO 2.25 GM/NS 50 ML IVPB ×3 (05:05→21:34)
[2019-01-24] MEDS: LANSOPRAZOLE 30 MG CAP PEG ×2 (05:05→18:29)
[2019-01-24] MEDS: OCULAR LUBRICANT 3.5 GM OPH OINT BOTH EYES ×4 (05:06→23:12)
[2019-01-24] MEDS: ARTIFICIAL TEARS 15 ML OPH BOTH EYES ×4 (05:06→23:12)
[2019-01-24] MEDS: ASCORBIC ACID 500 MG TAB NGT (09:00)
[2019-01-24] MEDS: ZINC SULFATE 220 MG CAP NGT (09:00)
[2019-01-24] MEDS: ASPIRIN 81 MG TAB NGT (09:00)
[2019-01-24] MEDS: MULTIVITAMINS 30 ML CUP NGT (09:00)
[2019-01-24] MEDS: FOLIC ACID 1 MG TAB NGT (09:01)
[2019-01-24] MEDS: CIPROFLOXACIN HCL OTIC DROP 0.25 ML LEFT EAR ×2 (09:09→21:34)
[2019-01-24] MEDS: DOCUSATE SODIUM 10 MG/ML (10ML CUP) GTB ×2 (09:09→21:00)
[2019-01-24] MEDS: ACCU-CHEK XX ×2 (09:10→21:37)
[2019-01-24] MEDS: CLOPIDOGREL 75 MG TAB NGT (14:04)
[2019-01-24] MEDS: FENTAnyl (DRIP) 1000 mcg/100mL 100 ML IV (14:10)
[2019-01-24] MEDS: HEPARIN 1000 UNITS/ML 10 ML INJ CATHETER (17:48)
[2019-01-24] MEDS: ATORVASTATIN 80 MG TAB PO (21:34)
[2019-01-24] MEDS: ACETAMINOPHEN 650MG/20.3ML CUP PO (23:17)
[2019-01-25] MEDS: IPRATROPIUM (HFA) 12.9 GM INHALER INH ×4 (02:18→20:45)
[2019-01-25 05:00] LABS: ADD MAN DIFF? NO
[2019-01-25 05:10] LABS: WHITE BLOOD COUNT 17.2 10^3/ul (4.8-10.8)
[2019-01-25 05:10] LABS: ABNORMAL IP MESSAGE 1; BASOPHIL # 0.1 10^3/ul (0.0-0.1); BASOPHILS % 0.5 % (0.0-2.0); EOSINOPHILS # 0.3 10^3/ul (0.0-0.5); EOSINOPHILS % 1.5 % (0.0-7.0); HEMATOCRIT 28.6 % (37.0-47.0); HEMOGLOBIN 8.6 g/dl (12.0-16.0); LYMPHOCYTES # 1.9 10^3/ul (0.8-2.9); MEAN CORPUSCULAR HEMOGLOBIN 27.4 pg (29.0-33.0); MEAN CORPUSCULAR HGB CONC 30.1 g/dl (32.0-37.0); MEAN CORPUSCULAR VOLUME 91.1 fl (82.0-101.0); MEAN PLATELET VOLUME 13.9 fl (7.4-10.4); MONOCYTE # 1.3 10^3/ul (0.3-0.9); MONOCYTES % 7.5 % (0.0-11.0); NEUTROPHIL # 13.4 10^3/ul (1.6-7.5); PLATELET COUNT 264 10^3/UL (140-415); RED BLOOD COUNT 3.14 10^6/ul (4.20-5.40); RED CELL DISTRIBUTION WIDTH 16.6 % (11.5-14.5)
[2019-01-25] MEDS: PIPER-TAZO 2.25 GM/NS 50 ML IVPB (05:28)
[2019-01-25] MEDS: ARTIFICIAL TEARS 15 ML OPH BOTH EYES ×3 (05:28→18:42)
[2019-01-25] MEDS: OCULAR LUBRICANT 3.5 GM OPH OINT BOTH EYES ×3 (05:28→18:42)
[2019-01-25] MEDS: metroNIDAZOLE 500 MG/NS (PMX) 100 ML IVPB ×3 (05:28→23:17)
[2019-01-25] MEDS: LANSOPRAZOLE 30 MG CAP PEG ×2 (05:28→18:42)
[2019-01-25 05:30] LABS: POSITIVE DIFF @See below
[2019-01-25 05:32] LABS: ANION GAP 11 (5-13); BLOOD UREA NITROGEN 52 mg/dl (7-20); CALCIUM 8.9 mg/dl (8.4-10.2); CARBON DIOXIDE 28 mmol/L (21-31); CHLORIDE 100 mmol/L (97-110); GLUCOSE 125 mg/dl (70-220); MAGNESIUM 2.2 mg/dl (1.7-2.5); PHOSPHORUS 5.5 mg/dl (2.5-4.9); POTASSIUM 4.9 mmol/L (3.5-5.1); SODIUM 139 mmol/L (135-144)
[2019-01-25 05:40] LABS: Estimated GFR 16 mL/min (>60)
[2019-01-25 05:41] LABS: CREATININE 3.16 mg/dl (0.44-1.00)
[2019-01-25] MEDS: ALBUTEROL HFA 8 GM INHALER INH ×3 (08:20→20:45)
[2019-01-25] MEDS: MULTIVITAMINS 30 ML CUP NGT (08:43)
[2019-01-25] MEDS: ASPIRIN 81 MG TAB NGT (08:43)
[2019-01-25] MEDS: ASCORBIC ACID 500 MG TAB NGT (08:44)
[2019-01-25] MEDS: FOLIC ACID 1 MG TAB NGT (08:44)
[2019-01-25] MEDS: CLOPIDOGREL 75 MG TAB NGT (08:44)
[2019-01-25] MEDS: CIPROFLOXACIN HCL OTIC DROP 0.25 ML LEFT EAR ×2 (08:44→20:57)
[2019-01-25] MEDS: ZINC SULFATE 220 MG CAP NGT (08:44)
[2019-01-25] MEDS: FENTAnyl (DRIP) 1000 mcg/100mL 100 ML IV (08:52)
[2019-01-25] MEDS: DOCUSATE SODIUM 10 MG/ML (10ML CUP) GTB ×2 (09:00→20:58)
[2019-01-25] MEDS: ACCU-CHEK XX ×2 (09:01→21:00)
[2019-01-25 10:33] LABS: AADO2 Arterial 252.5 mmHg (7.0-24.0); Allen Test ACCEPTAB; Arterial Base Excess 0.5 mmol/L (-3.0-3); Arterial COHb 0.2 % (0.0-3.0); Arterial Fraction of Oxyhgb 95.5 % (93.0-99.0); Arterial HCO3 26.8 mmol/L (22.0-26.0); Arterial MetHb 0.3 % (0.0-1.5); Arterial pCO2 51.5 mmhg (35-45); MODE VENT - PC; Site Right Radial
[2019-01-25] MEDS: MIDAZOLAM (DRIP) 50 mg/50 mL 50 ML IV (11:50)
[2019-01-25 12:09] LABS: HEMATOCRIT 25.5 % (37.0-47.0); HEMOGLOBIN 7.6 g/dl (12.0-16.0)
[2019-01-25] MEDS: LEVOFLOXACIN 250MG/D5W (PMX) 50 ML IVPB (12:39)
[2019-01-25] MEDS: RIFAXIMIN 200 MG TAB PO ×2 (13:53→20:57)
[2019-01-25] MEDS: CEFAZOLIN 1 GM/50 ML (PMX) 50 ML IVPB (14:51)
[2019-01-25 16:16] LABS: CARDIOLIPIN AB - IGA <11 APL; CARDIOLIPIN AB - IGG <14 GPL; CARDIOLIPIN AB - IGM <12 MPL
[2019-01-25 19:14] LABS: HEMATOCRIT 23.9 % (37.0-47.0); HEMOGLOBIN 7.3 g/dl (12.0-16.0)
[2019-01-25 20:33] LABS: IMMEDIATE SPIN CROSSMATCH 1 2
[2019-01-25] MEDS: SOD CHLORIDE 0.9% 250 ML IV* (20:40)
[2019-01-25] MEDS: ATORVASTATIN 80 MG TAB PO (20:57)
[2019-01-26] MEDS: ARTIFICIAL TEARS 15 ML OPH BOTH EYES ×4 (00:06→17:23)
[2019-01-26] MEDS: OCULAR LUBRICANT 3.5 GM OPH OINT BOTH EYES ×4 (00:06→17:22)
[2019-01-26] MEDS: MIDAZOLAM (DRIP) 50 mg/50 mL 50 ML IV (00:16)
[2019-01-26] MEDS: FENTAnyl (DRIP) 1000 mcg/100mL 100 ML IV (00:18)
[2019-01-26 00:52] LABS: HEMATOCRIT 28.8 % (37.0-47.0); HEMOGLOBIN 8.9 g/dl (12.0-16.0)
[2019-01-26] MEDS: IPRATROPIUM (HFA) 12.9 GM INHALER INH ×4 (02:30→19:27)
[2019-01-26 05:21] LABS: ADD MAN DIFF? NO
[2019-01-26 05:25] LABS: ABNORMAL IP MESSAGE 1; BASOPHIL # 0.1 10^3/ul (0.0-0.1); BASOPHILS % 0.7 % (0.0-2.0); EOSINOPHILS # 0.4 10^3/ul (0.0-0.5); EOSINOPHILS % 2.8 % (0.0-7.0); HEMATOCRIT 28.2 % (37.0-47.0); HEMOGLOBIN 8.7 g/dl (12.0-16.0); LYMPHOCYTES # 1.6 10^3/ul (0.8-2.9); LYMPHOCYTES % 12.2 % (15.0-51.0); MEAN CORPUSCULAR HEMOGLOBIN 27.7 pg (29.0-33.0); MEAN CORPUSCULAR HGB CONC 30.9 g/dl (32.0-37.0); MEAN CORPUSCULAR VOLUME 89.8 fl (82.0-101.0); MEAN PLATELET VOLUME 14.1 fl (7.4-10.4); MONOCYTE # 0.9 10^3/ul (0.3-0.9); MONOCYTES % 6.9 % (0.0-11.0); NEUTROPHIL # 10.2 10^3/ul (1.6-7.5); NEUTROPHILS % 76.2 % (39.0-77.0); PLATELET COUNT 248 10^3/UL (140-415); RED BLOOD COUNT 3.14 10^6/ul (4.20-5.40); RED CELL DISTRIBUTION WIDTH 15.6 % (11.5-14.5)
[2019-01-26 05:25] LABS: WHITE BLOOD COUNT 13.4 10^3/ul (4.8-10.8)
[2019-01-26 05:40] LABS: UR BILIRUBIN (Dip) NEGATIVE (NEGATIVE); UR CLARITY CLOUDY (CLEAR); UR COLOR BROWN (YELLOW); UR GLUCOSE (Dip) NEGATIVE (NEGATIVE); UR KETONES (Dip) NEGATIVE (NEGATIVE); UR TOTAL PROTEIN (Dip) 2+ mg/dl (NEGATIVE); URINE PH (Dip) 5 (5.0-9.0); URINE SPECIFIC GRAVITY (Dip) 1.015 (1.003-1.030)
[2019-01-26 05:41] LABS: ADD UMIC YES; UR ASCORBIC ACID NEGATIVE (NEGATIVE); UR BLOOD (Dip) 3+ mg/dL (NEGATIVE); UR LEUKOCYTE ESTERASE (Dip) 1+ Leu/ul (NEGATIVE); UR NITRITE (Dip) NEGATIVE (NEGATIVE); UR UROBILINOGEN (Dip) NEGATIVE (NEGATIVE)
[2019-01-26 05:45] LABS: UR AMORPHOUS CRYSTAL MODERATE /HPF (NONE SEEN); UR BACTERIA FEW /HPF (NONE SEEN); UR MUCUS FEW /HPF (NONE SEEN); UR NONSQUAMOUS EPITHELIAL CELL 3 /HPF (NONE SEEN); UR RBC 160 /HPF (0-5); UR SQUAMOUS EPITHELIAL CELL MANY /HPF (FEW); UR WBC 173 /HPF (0-5)
[2019-01-26 05:48] LABS: ANION GAP 10 (5-13); BLOOD UREA NITROGEN 83 mg/dl (7-20); CALCIUM 8.9 mg/dl (8.4-10.2); CARBON DIOXIDE 24 mmol/L (21-31); CHLORIDE 104 mmol/L (97-110); GLUCOSE 85 mg/dl (70-220); MAGNESIUM 2.2 mg/dl (1.7-2.5); POTASSIUM 5.3 mmol/L (3.5-5.1); PROTIME 15.3 Sec (11.9-14.9); PT RATIO 1.2; SODIUM 138 mmol/L (135-144)
[2019-01-26 05:54] LABS: Estimated GFR 11 mL/min (>60)
[2019-01-26 05:57] LABS: POSITIVE DIFF @See below
[2019-01-26] MEDS: LANSOPRAZOLE 30 MG CAP PEG ×2 (06:00→17:23)
[2019-01-26 06:03] LABS: CREATININE 4.34 mg/dl (0.44-1.00)
[2019-01-26] MEDS: metroNIDAZOLE 500 MG/NS (PMX) 100 ML IVPB ×3 (06:07→21:00)
[2019-01-26 06:08] LABS: PARTIAL THROMBOPLASTIN TIME 37.1 Sec (23.0-35.0)
[2019-01-26] MEDS: ALBUTEROL HFA 8 GM INHALER INH ×3 (07:59→19:26)
[2019-01-26] MEDS: CIPROFLOXACIN HCL OTIC DROP 0.25 ML LEFT EAR ×2 (08:53→20:56)
[2019-01-26] MEDS: CLOPIDOGREL 75 MG TAB NGT (08:53)
[2019-01-26] MEDS: DOCUSATE SODIUM 10 MG/ML (10ML CUP) GTB ×2 (08:53→20:50)
[2019-01-26] MEDS: ASCORBIC ACID 500 MG TAB NGT (08:54)
[2019-01-26] MEDS: ASPIRIN 81 MG TAB NGT (08:54)
[2019-01-26] MEDS: MULTIVITAMINS 30 ML CUP NGT (08:54)
[2019-01-26] MEDS: FOLIC ACID 1 MG TAB NGT (08:54)
[2019-01-26] MEDS: RIFAXIMIN 200 MG TAB PO ×3 (08:54→20:50)
[2019-01-26] MEDS: ZINC SULFATE 220 MG CAP NGT (08:54)
[2019-01-26] MEDS: ACCU-CHEK XX (09:00)
[2019-01-26 10:16] LABS: B2 GLYCOPROTEIN I AB (IGA) <9 SAU (< OR = 20); B2 GLYCOPROTEIN I AB (IGG) <9 SGU (< OR = 20); B2 GLYCOPROTEIN I AB (IGM) <9 SMU (< OR = 20)
[2019-01-26] MEDS: HEPARIN 1000 UNITS/ML 10 ML INJ CATHETER (16:08)
[2019-01-26] MEDS: CEFAZOLIN 1 GM/50 ML (PMX) 50 ML IVPB (16:40)
[2019-01-26] MEDS: LABETALOL HCL 20MG INJ IV (16:54)
[2019-01-26] MEDS: ATORVASTATIN 80 MG TAB PO (20:50)
[2019-01-26] MEDS: ACETAMINOPHEN 650MG/20.3ML CUP PO (20:56)
[2019-01-27] MEDS: ARTIFICIAL TEARS 15 ML OPH BOTH EYES ×4 (00:15→17:29)
[2019-01-27] MEDS: OCULAR LUBRICANT 3.5 GM OPH OINT BOTH EYES ×4 (00:15→17:29)
[2019-01-27] MEDS: IPRATROPIUM (HFA) 12.9 GM INHALER INH ×4 (01:20→19:42)
[2019-01-27] MEDS: LANSOPRAZOLE 30 MG CAP PEG ×2 (04:58→17:28)
[2019-01-27 05:28] LABS: ADD MAN DIFF? NO
[2019-01-27 05:33] LABS: WHITE BLOOD COUNT 12.4 10^3/ul (4.8-10.8)
[2019-01-27 05:33] LABS: ABNORMAL IP MESSAGE 1; BASOPHIL # 0.1 10^3/ul (0.0-0.1); BASOPHILS % 1.1 % (0.0-2.0); EOSINOPHILS # 0.3 10^3/ul (0.0-0.5); EOSINOPHILS % 2.2 % (0.0-7.0); HEMATOCRIT 28.7 % (37.0-47.0); HEMOGLOBIN 9.1 g/dl (12.0-16.0); LYMPHOCYTES # 1.6 10^3/ul (0.8-2.9); LYMPHOCYTES % 12.5 % (15.0-51.0); MEAN CORPUSCULAR HGB CONC 31.7 g/dl (32.0-37.0); MEAN CORPUSCULAR VOLUME 88.3 fl (82.0-101.0); MONOCYTE # 0.9 10^3/ul (0.3-0.9); MONOCYTES % 7.1 % (0.0-11.0); NEUTROPHIL # 9.4 10^3/ul (1.6-7.5); NEUTROPHILS % 75.7 % (39.0-77.0); PLATELET COUNT 346 10^3/UL (140-415); RED BLOOD COUNT 3.25 10^6/ul (4.20-5.40); RED CELL DISTRIBUTION WIDTH 15.8 % (11.5-14.5)
[2019-01-27] MEDS: metroNIDAZOLE 500 MG/NS (PMX) 100 ML IVPB ×3 (05:42→21:41)
[2019-01-27 05:55] LABS: POSITIVE DIFF @See below
[2019-01-27 06:12] LABS: ANION GAP 12 (5-13); BLOOD UREA NITROGEN 69 mg/dl (7-20); CARBON DIOXIDE 27 mmol/L (21-31); CHLORIDE 103 mmol/L (97-110); GLUCOSE 86 mg/dl (70-220); MAGNESIUM 2.1 mg/dl (1.7-2.5); PHOSPHORUS 6.2 mg/dl (2.5-4.9); POTASSIUM 4.4 mmol/L (3.5-5.1); SODIUM 142 mmol/L (135-144)
[2019-01-27 06:19] LABS: Estimated GFR 13 mL/min (>60)
[2019-01-27 06:22] LABS: CREATININE 3.92 mg/dl (0.44-1.00)
[2019-01-27] MEDS: ALBUTEROL HFA 8 GM INHALER INH ×3 (08:57→19:42)
[2019-01-27] MEDS: RIFAXIMIN 200 MG TAB PO ×3 (09:00→21:40)
[2019-01-27] MEDS: MULTIVITAMINS 30 ML CUP NGT (09:00)
[2019-01-27] MEDS: DOCUSATE SODIUM 10 MG/ML (10ML CUP) GTB ×2 (09:00→21:40)
[2019-01-27] MEDS: ASCORBIC ACID 500 MG TAB NGT (09:00)
[2019-01-27] MEDS: FOLIC ACID 1 MG TAB NGT (09:00)
[2019-01-27] MEDS: ZINC SULFATE 220 MG CAP NGT (09:00)
[2019-01-27] MEDS: FENTAnyl (DRIP) 1000 mcg/100mL 100 ML IV (12:24)
[2019-01-27] MEDS: LEVOFLOXACIN 250MG/D5W (PMX) 50 ML IVPB (12:52)
[2019-01-27] MEDS: CEFAZOLIN 1 GM/50 ML (PMX) 50 ML IVPB (14:34)
[2019-01-27] MEDS: ASPIRIN 81 MG TAB NGT (17:29)
[2019-01-27] MEDS: CLOPIDOGREL 75 MG TAB NGT (17:29)
[2019-01-27] MEDS: ATORVASTATIN 80 MG TAB PO (21:40)
[2019-01-28] MEDS: ACETAMINOPHEN 650MG/20.3ML CUP PO ×2 (00:39→20:04)
[2019-01-28] MEDS: OCULAR LUBRICANT 3.5 GM OPH OINT BOTH EYES ×5 (00:39→23:30)
[2019-01-28] MEDS: ARTIFICIAL TEARS 15 ML OPH BOTH EYES ×5 (00:39→23:30)
[2019-01-28] MEDS: IPRATROPIUM (HFA) 12.9 GM INHALER INH ×4 (01:33→20:47)
[2019-01-28 04:31] LABS: ADD MAN DIFF? NO
[2019-01-28 04:37] LABS: WHITE BLOOD COUNT 12.5 10^3/ul (4.8-10.8)
[2019-01-28 04:37] LABS: ABNORMAL IP MESSAGE 1; BASOPHIL # 0.1 10^3/ul (0.0-0.1); BASOPHILS % 0.8 % (0.0-2.0); EOSINOPHILS # 0.3 10^3/ul (0.0-0.5); EOSINOPHILS % 2.1 % (0.0-7.0); HEMATOCRIT 29.2 % (37.0-47.0); HEMOGLOBIN 9.1 g/dl (12.0-16.0); LYMPHOCYTES # 1.9 10^3/ul (0.8-2.9); LYMPHOCYTES % 14.8 % (15.0-51.0); MEAN CORPUSCULAR HEMOGLOBIN 27.9 pg (29.0-33.0); MEAN CORPUSCULAR HGB CONC 31.2 g/dl (32.0-37.0); MEAN CORPUSCULAR VOLUME 89.6 fl (82.0-101.0); MEAN PLATELET VOLUME 13.9 fl (7.4-10.4); MONOCYTE # 0.7 10^3/ul (0.3-0.9); MONOCYTES % 5.8 % (0.0-11.0); NEUTROPHIL # 9.4 10^3/ul (1.6-7.5); NEUTROPHILS % 75.1 % (39.0-77.0); PLATELET COUNT 397 10^3/UL (140-415); RED BLOOD COUNT 3.26 10^6/ul (4.20-5.40); RED CELL DISTRIBUTION WIDTH 15.7 % (11.5-14.5)
[2019-01-28 04:55] LABS: ANION GAP 17 (5-13); BLOOD UREA NITROGEN 96 mg/dl (7-20); CALCIUM 8.7 mg/dl (8.4-10.2); CARBON DIOXIDE 23 mmol/L (21-31); CHLORIDE 103 mmol/L (97-110); GLUCOSE 83 mg/dl (70-220); MAGNESIUM 2.2 mg/dl (1.7-2.5); PHOSPHORUS 9.2 mg/dl (2.5-4.9); POSITIVE DIFF @See below; POTASSIUM 5.4 mmol/L (3.5-5.1); SODIUM 143 mmol/L (135-144)
[2019-01-28 05:01] LABS: Estimated GFR 9 mL/min (>60)
[2019-01-28] MEDS: LANSOPRAZOLE 30 MG CAP PEG ×2 (05:17→17:19)
[2019-01-28] MEDS: metroNIDAZOLE 500 MG/NS (PMX) 100 ML IVPB ×3 (05:17→21:37)
[2019-01-28] MEDS: FENTAnyl (DRIP) 1000 mcg/100mL 100 ML IV (07:07)
[2019-01-28] MEDS: ASCORBIC ACID 500 MG TAB NGT (08:03)
[2019-01-28] MEDS: MULTIVITAMINS 30 ML CUP NGT (08:03)
[2019-01-28] MEDS: DOCUSATE SODIUM 10 MG/ML (10ML CUP) GTB ×2 (08:03→20:03)
[2019-01-28] MEDS: ZINC SULFATE 220 MG CAP NGT (08:03)
[2019-01-28] MEDS: FOLIC ACID 1 MG TAB NGT (08:03)
[2019-01-28] MEDS: RIFAXIMIN 200 MG TAB PO ×3 (08:03→20:08)
[2019-01-28] MEDS: ALBUTEROL HFA 8 GM INHALER INH ×3 (08:49→20:48)
[2019-01-28] MEDS ORDERED: ALBUMIN HUMAN 25% 100 ML (09:46)
[2019-01-28] MEDS: ALBUMIN HUMAN 25% 100 ML IV (10:24)
[2019-01-28] MEDS: HEPARIN 1000 UNITS/ML 10 ML INJ CATHETER (13:36)
[2019-01-28] MEDS: CEFAZOLIN 1 GM/50 ML (PMX) 50 ML IVPB (13:50)
[2019-01-28] MEDS: hydrALAzine 20 MG INJ IV (16:18)
[2019-01-28] MEDS ORDERED: LIDOCAINE 1%/EPI (1:100,000) (MDV) 20 ML (18:37)
[2019-01-28] MEDS: CLOPIDOGREL 75 MG TAB NGT (20:04)
[2019-01-28] MEDS: ATORVASTATIN 80 MG TAB PO (20:04)
[2019-01-28] MEDS: ASPIRIN 81 MG TAB NGT (20:05)
[2019-01-28] MEDS ORDERED: ROCURONIUM 50 MG INJ (20:18)
[2019-01-28] MEDS ORDERED: PROPOFOL 20 ML (20:18)
[2019-01-28] MEDS: SOD CHLORIDE 0.9% 1,000 ML IV (23:30)
[2019-01-28 23:35] LABS: HEMOGLOBIN 8.4 g/dl (12.0-16.0)
[2019-01-29] MEDS: PANTOPRAZOLE IV 80 MG in SOD CHLORIDE 0.9% 100 ML IV ×3 (00:42→19:51)
[2019-01-29 01:18] LABS: PLATELET COUNT 379 10^3/UL (140-415)
[2019-01-29 01:45] LABS: INR 1.28; PROTIME 16.1 Sec (11.9-14.9); PT RATIO 1.3
[2019-01-29 01:46] LABS: PARTIAL THROMBOPLASTIN TIME 35.9 Sec (23.0-35.0)
[2019-01-29] MEDS: FENTAnyl (DRIP) 1000 mcg/100mL 100 ML IV ×2 (01:46→14:32)
[2019-01-29 02:17] LABS: IMMEDIATE SPIN CROSSMATCH 1 1
[2019-01-29] MEDS: IPRATROPIUM (HFA) 12.9 GM INHALER INH ×4 (02:26→20:07)
[2019-01-29 05:18] LABS: ADD MAN DIFF? NO
[2019-01-29 05:20] LABS: ABNORMAL IP MESSAGE 1; BASOPHIL # 0.1 10^3/ul (0.0-0.1); BASOPHILS % 1.1 % (0.0-2.0); EOSINOPHILS # 0.1 10^3/ul (0.0-0.5); EOSINOPHILS % 1.2 % (0.0-7.0); HEMATOCRIT 31.2 % (37.0-47.0); HEMOGLOBIN 9.9 g/dl (12.0-16.0); LYMPHOCYTES # 1.4 10^3/ul (0.8-2.9); MEAN CORPUSCULAR HEMOGLOBIN 28.8 pg (29.0-33.0); MEAN CORPUSCULAR HGB CONC 31.7 g/dl (32.0-37.0); MEAN CORPUSCULAR VOLUME 90.7 fl (82.0-101.0); MEAN PLATELET VOLUME 13.4 fl (7.4-10.4); MONOCYTE # 0.9 10^3/ul (0.3-0.9); MONOCYTES % 7.1 % (0.0-11.0); NEUTROPHIL # 9.3 10^3/ul (1.6-7.5); NEUTROPHILS % 77.4 % (39.0-77.0); PLATELET COUNT 386 10^3/UL (140-415); RED BLOOD COUNT 3.44 10^6/ul (4.20-5.40); RED CELL DISTRIBUTION WIDTH 15.6 % (11.5-14.5)
[2019-01-29] MEDS: OCULAR LUBRICANT 3.5 GM OPH OINT BOTH EYES ×4 (05:23→23:53)
[2019-01-29] MEDS: metroNIDAZOLE 500 MG/NS (PMX) 100 ML IVPB ×3 (05:23→21:02)
[2019-01-29] MEDS: ARTIFICIAL TEARS 15 ML OPH BOTH EYES ×4 (05:23→23:53)
[2019-01-29 05:49] LABS: POSITIVE DIFF @See below
[2019-01-29 06:28] LABS: ANION GAP 15 (5-13); BLOOD UREA NITROGEN 76 mg/dl (7-20); CALCIUM 8.4 mg/dl (8.4-10.2); CARBON DIOXIDE 23 mmol/L (21-31); CHLORIDE 105 mmol/L (97-110); GLUCOSE 105 mg/dl (70-220); MAGNESIUM 2.1 mg/dl (1.7-2.5); PHOSPHORUS 9.2 mg/dl (2.5-4.9); POTASSIUM 5.1 mmol/L (3.5-5.1); SODIUM 143 mmol/L (135-144)
[2019-01-29 06:33] LABS: Estimated GFR 12 mL/min (>60)
[2019-01-29 06:35] LABS: CREATININE 4.23 mg/dl (0.44-1.00)
[2019-01-29] MEDS: ALBUTEROL HFA 8 GM INHALER INH ×3 (07:08→20:07)
[2019-01-29 08:14] LABS: Allen Test ACCEPTAB; Arterial Base Excess -3.4 mmol/L (-3.0-3); Arterial Blood Gas Oxygen Sat 93.2 mmHG (95.0-98.0); Arterial COHb 0.3 % (0.0-3.0); Arterial Fraction of Oxyhgb 92.8 % (93.0-99.0); Arterial HCO3 21.6 mmol/L (22.0-26.0); Arterial MetHb 0.1 % (0.0-1.5); Arterial pCO2 38.5 mmhg (35-45); MODE VENT - AC; Site Left Radial
[2019-01-29] MEDS: DOCUSATE SODIUM 10 MG/ML (10ML CUP) GTB ×2 (09:00→20:21)
[2019-01-29] MEDS: DESMOPRESSIN IVPB (09:15)
[2019-01-29] MEDS: SOD CHLORIDE 0.9% IVPB (09:15)
[2019-01-29] MEDS: MULTIVITAMINS 30 ML CUP NGT (09:15)
[2019-01-29] MEDS: ASPIRIN 81 MG TAB NGT (09:15)
[2019-01-29] MEDS: RIFAXIMIN 200 MG TAB PO ×3 (09:15→20:21)
[2019-01-29] MEDS: ASCORBIC ACID 500 MG TAB NGT (09:15)
[2019-01-29] MEDS: CLOPIDOGREL 75 MG TAB NGT (09:15)
[2019-01-29] MEDS: ZINC SULFATE 220 MG CAP NGT (09:16)
[2019-01-29] MEDS: FOLIC ACID 1 MG TAB NGT (09:16)
[2019-01-29] MEDS: PROPOFOL 20 ML (09:17)
[2019-01-29] MEDS: SEVELAMER CARBONATE 2.4 GM PKT GTB ×2 (11:29→17:51)
[2019-01-29] MEDS: LEVOFLOXACIN 250MG/D5W (PMX) 50 ML IVPB (11:30)
[2019-01-29] MEDS: CEFAZOLIN 1 GM/50 ML (PMX) 50 ML IVPB (14:28)
[2019-01-29] MEDS ORDERED: ONDANSETRON 4 MG INJ (14:42)
[2019-01-29] MEDS: ONDANSETRON 4 MG INJ IV ×2 (14:44→21:52)
[2019-01-29] MEDS: ATORVASTATIN 80 MG TAB PO (20:21)
[2019-01-29] MEDS: morphine 2 MG INJ IV (22:22)
[2019-01-30] MEDS: IPRATROPIUM (HFA) 12.9 GM INHALER INH ×4 (01:42→19:17)
[2019-01-30] MEDS: FENTAnyl (DRIP) 1000 mcg/100mL 100 ML IV ×3 (02:10→22:27)
[2019-01-30] MEDS: METOCLOPRAMIDE 10 MG INJ IV (02:28)
[2019-01-30] MEDS: morphine 2 MG INJ IV (02:57)
[2019-01-30 05:07] LABS: ADD MAN DIFF? NO
[2019-01-30] MEDS: OCULAR LUBRICANT 3.5 GM OPH OINT BOTH EYES ×4 (05:09→23:26)
[2019-01-30] MEDS: metroNIDAZOLE 500 MG/NS (PMX) 100 ML IVPB ×3 (05:09→21:01)
[2019-01-30] MEDS: ARTIFICIAL TEARS 15 ML OPH BOTH EYES ×4 (05:09→23:26)
[2019-01-30 05:29] LABS: WHITE BLOOD COUNT 11.7 10^3/ul (4.8-10.8)
[2019-01-30 05:29] LABS: ABNORMAL IP MESSAGE 1; BASOPHIL # 0.1 10^3/ul (0.0-0.1); BASOPHILS % 0.6 % (0.0-2.0); EOSINOPHILS # 0.3 10^3/ul (0.0-0.5); EOSINOPHILS % 2.9 % (0.0-7.0); HEMATOCRIT 26.5 % (37.0-47.0); HEMOGLOBIN 8.2 g/dl (12.0-16.0); LYMPHOCYTES # 1.6 10^3/ul (0.8-2.9); LYMPHOCYTES % 13.9 % (15.0-51.0); MEAN CORPUSCULAR HEMOGLOBIN 28.9 pg (29.0-33.0); MEAN CORPUSCULAR HGB CONC 30.9 g/dl (32.0-37.0); MEAN CORPUSCULAR VOLUME 93.3 fl (82.0-101.0); MEAN PLATELET VOLUME 13.9 fl (7.4-10.4); MONOCYTE # 0.8 10^3/ul (0.3-0.9); MONOCYTES % 6.6 % (0.0-11.0); NEUTROPHIL # 8.7 10^3/ul (1.6-7.5); NEUTROPHILS % 74.3 % (39.0-77.0); PLATELET COUNT 290 10^3/UL (140-415); RED BLOOD COUNT 2.84 10^6/ul (4.20-5.40)
[2019-01-30 05:32] LABS: ANION GAP 12 (5-13); BLOOD UREA NITROGEN 95 mg/dl (7-20); CALCIUM 7.2 mg/dl (8.4-10.2); CARBON DIOXIDE 21 mmol/L (21-31); CHLORIDE 109 mmol/L (97-110); GLUCOSE 100 mg/dl (70-220); PHOSPHORUS 8.6 mg/dl (2.5-4.9); POTASSIUM 5.3 mmol/L (3.5-5.1); SODIUM 142 mmol/L (135-144)
[2019-01-30 05:33] LABS: POSITIVE DIFF @See below
[2019-01-30 05:39] LABS: CREATININE 4.71 mg/dl (0.44-1.00); Estimated GFR 10 mL/min (>60)
[2019-01-30] MEDS: PANTOPRAZOLE IV 80 MG in SOD CHLORIDE 0.9% 100 ML IV ×2 (06:03→16:22)
[2019-01-30] MEDS: SEVELAMER CARBONATE 2.4 GM PKT GTB ×3 (07:35→16:46)
[2019-01-30] MEDS: ALBUTEROL HFA 8 GM INHALER INH ×3 (07:55→19:17)
[2019-01-30] MEDS: DOCUSATE SODIUM 10 MG/ML (10ML CUP) GTB ×2 (08:03→21:00)
[2019-01-30] MEDS: ASCORBIC ACID 500 MG TAB NGT (08:08)
[2019-01-30] MEDS: FOLIC ACID 1 MG TAB NGT (08:08)
[2019-01-30] MEDS: MULTIVITAMINS 30 ML CUP NGT (08:08)
[2019-01-30] MEDS: ZINC SULFATE 220 MG CAP NGT (08:08)
[2019-01-30] MEDS: CLOPIDOGREL 75 MG TAB NGT (08:08)
[2019-01-30] MEDS: ASPIRIN 81 MG TAB NGT (08:08)
[2019-01-30] MEDS: RIFAXIMIN 200 MG TAB PO ×3 (08:08→21:01)
[2019-01-30] MEDS: LACTOBACILLUS RHAMNOSUS CAP GTB ×2 (12:10→21:01)
[2019-01-30] MEDS: HEPARIN 1000 UNITS/ML 10 ML INJ CATHETER (16:14)
[2019-01-30] MEDS: CEFAZOLIN 1 GM/50 ML (PMX) 50 ML IVPB (16:22)
[2019-01-30] MEDS: ATORVASTATIN 80 MG TAB PO (21:01)
[2019-01-31] MEDS: IPRATROPIUM (HFA) 12.9 GM INHALER INH ×4 (01:43→19:05)
[2019-01-31] MEDS: ALBUTEROL HFA 8 GM INHALER INH ×3 (01:43→19:04)
[2019-01-31] MEDS: PANTOPRAZOLE IV 80 MG in SOD CHLORIDE 0.9% 100 ML IV ×4 (01:52→21:19)
[2019-01-31 04:39] LABS: ADD MAN DIFF? NO
[2019-01-31 04:42] LABS: WHITE BLOOD COUNT 11.5 10^3/ul (4.8-10.8)
[2019-01-31 04:42] LABS: ABNORMAL IP MESSAGE 1; BASOPHIL # 0.1 10^3/ul (0.0-0.1); BASOPHILS % 0.5 % (0.0-2.0); EOSINOPHILS # 0.4 10^3/ul (0.0-0.5); EOSINOPHILS % 3.6 % (0.0-7.0); HEMATOCRIT 26.1 % (37.0-47.0); HEMOGLOBIN 8.1 g/dl (12.0-16.0); LYMPHOCYTES # 1.3 10^3/ul (0.8-2.9); LYMPHOCYTES % 10.9 % (15.0-51.0); MEAN CORPUSCULAR HEMOGLOBIN 28.7 pg (29.0-33.0); MEAN CORPUSCULAR VOLUME 92.6 fl (82.0-101.0); MEAN PLATELET VOLUME 13.6 fl (7.4-10.4); MONOCYTE # 0.5 10^3/ul (0.3-0.9); MONOCYTES % 4.3 % (0.0-11.0); NEUTROPHILS % 78.4 % (39.0-77.0); PLATELET COUNT 253 10^3/UL (140-415); RED BLOOD COUNT 2.82 10^6/ul (4.20-5.40); RED CELL DISTRIBUTION WIDTH 15.9 % (11.5-14.5)
[2019-01-31 04:44] LABS: POSITIVE DIFF @See below
[2019-01-31] MEDS: ARTIFICIAL TEARS 15 ML OPH BOTH EYES ×3 (05:04→18:00)
[2019-01-31] MEDS: OCULAR LUBRICANT 3.5 GM OPH OINT BOTH EYES ×3 (05:04→18:00)
[2019-01-31] MEDS: metroNIDAZOLE 500 MG/NS (PMX) 100 ML IVPB ×3 (05:04→21:06)
[2019-01-31 05:08] LABS: ANION GAP 10 (5-13); BLOOD UREA NITROGEN 52 mg/dl (7-20); CALCIUM 7.3 mg/dl (8.4-10.2); CARBON DIOXIDE 26 mmol/L (21-31); CHLORIDE 103 mmol/L (97-110); GLUCOSE 129 mg/dl (70-220); MAGNESIUM 1.8 mg/dl (1.7-2.5); PHOSPHORUS 5.5 mg/dl (2.5-4.9); POTASSIUM 4.4 mmol/L (3.5-5.1); SODIUM 139 mmol/L (135-144)
[2019-01-31 05:13] LABS: Estimated GFR 19 mL/min (>60)
[2019-01-31 07:47] LABS: CREATININE 2.78 mg/dl (0.44-1.00)
[2019-01-31] MEDS: SEVELAMER CARBONATE 2.4 GM PKT GTB ×3 (07:56→18:10)
[2019-01-31] MEDS: ZINC SULFATE 220 MG CAP NGT (08:36)
[2019-01-31] MEDS: ASPIRIN 81 MG TAB NGT (08:36)
[2019-01-31] MEDS: RIFAXIMIN 200 MG TAB PO ×3 (08:36→21:04)
[2019-01-31] MEDS: CLOPIDOGREL 75 MG TAB NGT (08:36)
[2019-01-31] MEDS: ASCORBIC ACID 500 MG TAB NGT (08:36)
[2019-01-31] MEDS: MULTIVITAMINS 30 ML CUP NGT (08:36)
[2019-01-31] MEDS: FOLIC ACID 1 MG TAB NGT (08:36)
[2019-01-31] MEDS: DOCUSATE SODIUM 10 MG/ML (10ML CUP) GTB ×2 (08:36→21:06)
[2019-01-31] MEDS: LACTOBACILLUS RHAMNOSUS CAP GTB ×3 (08:36→21:06)
[2019-01-31] MEDS: FENTAnyl (DRIP) 1000 mcg/100mL 100 ML IV ×2 (09:37→21:11)
[2019-01-31] MEDS: LEVOFLOXACIN 250MG/D5W (PMX) 50 ML IVPB (11:51)
[2019-01-31] MEDS: HEPARIN 1000 UNITS/ML 10 ML INJ CATHETER (17:28)
[2019-01-31] MEDS: CEFAZOLIN 1 GM/50 ML (PMX) 50 ML IVPB (17:57)
[2019-01-31] MEDS: ATORVASTATIN 80 MG TAB PO (21:04)
[2019-02-01] MEDS: OCULAR LUBRICANT 3.5 GM OPH OINT BOTH EYES ×4 (00:09→18:11)
[2019-02-01] MEDS: ARTIFICIAL TEARS 15 ML OPH BOTH EYES ×4 (00:09→18:11)
[2019-02-01] MEDS: IPRATROPIUM (HFA) 12.9 GM INHALER INH ×4 (01:02→19:17)
[2019-02-01 04:56] LABS: AADO2 Arterial 48.7 mmHg (7.0-24.0); Allen Test ACCEPTAB; Arterial Base Excess 2.5 mmol/L (-3.0-3); Arterial Blood Gas Oxygen Sat 96.5 mmHG (95.0-98.0); Arterial COHb 0.3 % (0.0-3.0); Arterial HCO3 29.9 mmol/L (22.0-26.0); Arterial MetHb 0.2 % (0.0-1.5); Arterial pCO2 60.7 mmhg (35-45); Blood Gas PS 14; MODE VENT - SIMV; Site Right Radial
[2019-02-01 05:14] LABS: ADD MAN DIFF? NO
[2019-02-01 05:20] LABS: ABNORMAL IP MESSAGE 1; BASOPHIL # 0.1 10^3/ul (0.0-0.1); BASOPHILS % 0.8 % (0.0-2.0); EOSINOPHILS # 0.5 10^3/ul (0.0-0.5); EOSINOPHILS % 3.5 % (0.0-7.0); HEMATOCRIT 29.2 % (37.0-47.0); LYMPHOCYTES # 1.1 10^3/ul (0.8-2.9); LYMPHOCYTES % 8.6 % (15.0-51.0); MEAN CORPUSCULAR HGB CONC 30.8 g/dl (32.0-37.0); MEAN CORPUSCULAR VOLUME 94.2 fl (82.0-101.0); MEAN PLATELET VOLUME 14.2 fl (7.4-10.4); MONOCYTE # 0.6 10^3/ul (0.3-0.9); MONOCYTES % 4.3 % (0.0-11.0); NEUTROPHIL # 10.4 10^3/ul (1.6-7.5); NEUTROPHILS % 79.9 % (39.0-77.0); PLATELET COUNT 227 10^3/UL (140-415); RED CELL DISTRIBUTION WIDTH 15.9 % (11.5-14.5)
[2019-02-01 05:30] LABS: POSITIVE DIFF @See below
[2019-02-01] MEDS: metroNIDAZOLE 500 MG/NS (PMX) 100 ML IVPB ×2 (05:52→13:39)
[2019-02-01 06:14] LABS: Estimated GFR 22 mL/min (>60)
[2019-02-01 06:24] LABS: ANION GAP 6 (5-13); BLOOD UREA NITROGEN 40 mg/dl (7-20); CALCIUM 8.1 mg/dl (8.4-10.2); CARBON DIOXIDE 29 mmol/L (21-31); CHLORIDE 104 mmol/L (97-110); GLUCOSE 126 mg/dl (70-220); POTASSIUM 4.2 mmol/L (3.5-5.1); SODIUM 139 mmol/L (135-144)
[2019-02-01 06:25] LABS: CREATININE 2.41 mg/dl (0.44-1.00)
[2019-02-01] MEDS: SEVELAMER CARBONATE 2.4 GM PKT GTB ×3 (06:36→18:10)
[2019-02-01] MEDS: PANTOPRAZOLE IV 80 MG in SOD CHLORIDE 0.9% 100 ML IV ×2 (06:37→16:48)
[2019-02-01] MEDS: FENTAnyl (DRIP) 1000 mcg/100mL 100 ML IV ×2 (06:38→17:41)
[2019-02-01] MEDS: ZINC SULFATE 220 MG CAP NGT (08:29)
[2019-02-01] MEDS: DOCUSATE SODIUM 10 MG/ML (10ML CUP) GTB ×2 (08:29→21:16)
[2019-02-01] MEDS: RIFAXIMIN 200 MG TAB PO ×3 (08:29→21:16)
[2019-02-01] MEDS: ASCORBIC ACID 500 MG TAB NGT (08:29)
[2019-02-01] MEDS: LACTOBACILLUS RHAMNOSUS CAP GTB ×3 (08:30→21:16)
[2019-02-01] MEDS: CLOPIDOGREL 75 MG TAB NGT (08:30)
[2019-02-01] MEDS: MULTIVITAMINS 30 ML CUP NGT (08:30)
[2019-02-01] MEDS: ASPIRIN 81 MG TAB NGT (08:30)
[2019-02-01] MEDS: FOLIC ACID 1 MG TAB NGT (08:30)
[2019-02-01] MEDS: ALBUTEROL HFA 8 GM INHALER INH ×3 (08:43→19:17)
[2019-02-01] MEDS ORDERED: SOD CHLORIDE 0.9% 1,000 ML IV (11:38)
[2019-02-01] MEDS ORDERED: SODIUM CHLORIDE 0.9% 1L BAG IV (12:00)
[2019-02-01] MEDS ORDERED: ALBUMIN HUMAN 25% 100 ML IV (12:00)
[2019-02-01] MEDS: HEPARIN 1000 UNITS/ML 10 ML INJ CATHETER (18:02)
[2019-02-01] MEDS: ONDANSETRON 4 MG INJ IV (18:27)
[2019-02-01] MEDS: ATORVASTATIN 80 MG TAB PO (21:16)
[2019-02-01] MEDS: morphine 2 MG INJ IV ×2 (21:56→22:51)
[2019-02-01 23:16] LABS: TROPONIN-I 0.495 ng/ml (0.000-0.120)
[2019-02-01 23:30] LABS: CK INDEX 0.3; CREATINE KINASE 21794 IU/L (23-200)
[2019-02-02] MEDS: ARTIFICIAL TEARS 15 ML OPH BOTH EYES ×4 (00:16→16:42)
[2019-02-02] MEDS: OCULAR LUBRICANT 3.5 GM OPH OINT BOTH EYES ×4 (00:17→16:43)
[2019-02-02] MEDS ORDERED: NITROGLYCERIN 2% 1 GM OINT PKT TD ×2 (00:30)
[2019-02-02] MEDS: IPRATROPIUM (HFA) 12.9 GM INHALER INH ×4 (01:07→19:58)
[2019-02-02 03:38] LABS: CK INDEX 0.4; CREATINE KINASE 20408 IU/L (23-200)
[2019-02-02] MEDS: PANTOPRAZOLE IV 80 MG in SOD CHLORIDE 0.9% 100 ML IV ×2 (04:13→15:34)
[2019-02-02] MEDS: LORAZEPAM 2 MG INJ IV (04:14)
[2019-02-02 04:30] LABS: AADO2 Arterial 43.1 mmHg (7.0-24.0); Allen Test ACCEPTAB; Arterial Base Excess 1.5 mmol/L (-3.0-3); Arterial Blood Gas Oxygen Sat 95.7 mmHG (95.0-98.0); Arterial COHb 0.3 % (0.0-3.0); Arterial Fraction of Oxyhgb 95.2 % (93.0-99.0); Arterial MetHb 0.2 % (0.0-1.5); Arterial pCO2 70.2 mmhg (35-45); MODE VENT - AC; Site Right Radial
[2019-02-02] MEDS: FLUMAZENIL 0.5 MG INJ IV (05:42)
[2019-02-02 05:50] LABS: AADO2 Arterial 133.1 mmHg (7.0-24.0); Allen Test ACCEPTAB; Arterial Base Excess 0.1 mmol/L (-3.0-3); Arterial Blood Gas Oxygen Sat 99.4 mmHG (95.0-98.0); Arterial COHb 0.3 % (0.0-3.0); Arterial Fraction of Oxyhgb 98.8 % (93.0-99.0); Arterial HCO3 31.1 mmol/L (22.0-26.0); Arterial MetHb 0.3 % (0.0-1.5); Arterial pCO2 95.5 mmhg (35-45); MODE VENT - PC; Site Right Radial
[2019-02-02] MEDS: NORepinephrine 8MG/250 ML (PMX 250 ML IV (06:08)
[2019-02-02] MEDS ORDERED: PHENYLephrine 20MG IN 250 ML 250 ML IV (06:30)
[2019-02-02] MEDS: SEVELAMER CARBONATE 2.4 GM PKT GTB ×3 (06:37→16:39)
[2019-02-02] MEDS: SOD CHLORIDE 0.9% 500 ML IV (06:51)
[2019-02-02 06:54] LABS: ADD MAN DIFF? NO
[2019-02-02 06:56] LABS: WHITE BLOOD COUNT 19.5 10^3/ul (4.8-10.8)
[2019-02-02 06:56] LABS: ABNORMAL IP MESSAGE 1; BASOPHIL # 0.2 10^3/ul (0.0-0.1); BASOPHILS % 0.9 % (0.0-2.0); EOSINOPHILS # 0.3 10^3/ul (0.0-0.5); EOSINOPHILS % 1.7 % (0.0-7.0); HEMATOCRIT 33.5 % (37.0-47.0); LYMPHOCYTES # 1.2 10^3/ul (0.8-2.9); LYMPHOCYTES % 6.2 % (15.0-51.0); MEAN CORPUSCULAR HEMOGLOBIN 28.9 pg (29.0-33.0); MEAN CORPUSCULAR HGB CONC 29.9 g/dl (32.0-37.0); MEAN CORPUSCULAR VOLUME 96.8 fl (82.0-101.0); MEAN PLATELET VOLUME 13.6 fl (7.4-10.4); MONOCYTE # 0.9 10^3/ul (0.3-0.9); MONOCYTES % 4.5 % (0.0-11.0); NEUTROPHIL # 16.1 10^3/ul (1.6-7.5); NEUTROPHILS % 82.7 % (39.0-77.0); PLATELET COUNT 330 10^3/UL (140-415); RED BLOOD COUNT 3.46 10^6/ul (4.20-5.40); RED CELL DISTRIBUTION WIDTH 15.9 % (11.5-14.5)
[2019-02-02 06:58] LABS: POSITIVE DIFF @See below
[2019-02-02] MEDS: FENTAnyl (DRIP) 1000 mcg/100mL 100 ML IV ×2 (06:59→16:42)
[2019-02-02 07:15] LABS: ANION GAP 10 (5-13); BLOOD UREA NITROGEN 44 mg/dl (7-20); CALCIUM 8.6 mg/dl (8.4-10.2); CARBON DIOXIDE 27 mmol/L (21-31); CHLORIDE 101 mmol/L (97-110); GLUCOSE 153 mg/dl (70-220); POTASSIUM 5.4 mmol/L (3.5-5.1); SODIUM 138 mmol/L (135-144)
[2019-02-02 07:21] LABS: Estimated GFR 21 mL/min (>60)
[2019-02-02 07:23] LABS: CREATININE 2.58 mg/dl (0.44-1.00)
[2019-02-02] MEDS: ALBUTEROL HFA 8 GM INHALER INH ×3 (07:34→19:58)
[2019-02-02 08:21] LABS: AADO2 Arterial 151.7 mmHg (7.0-24.0); Allen Test ACCEPTAB; Arterial Blood Gas Oxygen Sat 99.5 mmHG (95.0-98.0); Arterial COHb 0.3 % (0.0-3.0); Arterial HCO3 27.9 mmol/L (22.0-26.0); Arterial MetHb 0.2 % (0.0-1.5); Arterial pCO2 79.5 mmhg (35-45); MODE VENT - PC; Site Right Radial
[2019-02-02] MEDS: MULTIVITAMINS 30 ML CUP NGT (08:21)
[2019-02-02] MEDS: ZINC SULFATE 220 MG CAP NGT (08:21)
[2019-02-02] MEDS: DOCUSATE SODIUM 10 MG/ML (10ML CUP) GTB ×2 (08:21→22:10)
[2019-02-02] MEDS: RIFAXIMIN 200 MG TAB PO ×3 (08:22→22:10)
[2019-02-02] MEDS: LACTOBACILLUS RHAMNOSUS CAP GTB ×3 (08:22→22:10)
[2019-02-02] MEDS: ASCORBIC ACID 500 MG TAB NGT (08:22)
[2019-02-02] MEDS: CLOPIDOGREL 75 MG TAB NGT (08:22)
[2019-02-02] MEDS: FOLIC ACID 1 MG TAB NGT (08:22)
[2019-02-02] MEDS: ASPIRIN 81 MG TAB NGT (08:22)
[2019-02-02] MEDS ORDERED: VANCOMYCIN IV PER PHARMACY XX (10:00)
[2019-02-02] MEDS: VANCOMYCIN HCL 1.5 GM in SOD CHLORIDE 0.9% 250 ML IVPB (11:40)
[2019-02-02 11:47] LABS: AADO2 Arterial 177.2 mmHg (7.0-24.0); Allen Test ACCEPTAB; Arterial Base Excess -1.5 mmol/L (-3.0-3); Arterial Blood Gas Oxygen Sat 98.7 mmHG (95.0-98.0); Arterial COHb 0.3 % (0.0-3.0); Arterial Fraction of Oxyhgb 97.9 % (93.0-99.0); Arterial HCO3 23.4 mmol/L (22.0-26.0); Arterial MetHb 0.5 % (0.0-1.5); Arterial pCO2 40.1 mmhg (35-45); MODE VENT - AC; Site LB
[2019-02-02 12:24] LABS: CK INDEX 0.4; CREATINE KINASE 18173 IU/L (23-200)
[2019-02-02 12:35] LABS: CREATINE KINASE 21017 IU/L (23-200)
[2019-02-02 12:36] LABS: CK INDEX 0.4
[2019-02-02] MEDS: HEPARIN 1000 UNITS/ML 10 ML INJ CATHETER (13:42)
[2019-02-02 13:56] LABS: ANA SCREEN POSITIVE (NEGATIVE)
[2019-02-02] MEDS: CEFEPIME 1GM/50 ML (PMX) 50 ML IVPB (15:17)
[2019-02-02 15:32] LABS: ANA PATTERN HOMOGENEOUS
[2019-02-02] MEDS: ACETAMINOPHEN 650MG/20.3ML CUP PO (19:04)
[2019-02-02] MEDS: ATORVASTATIN 80 MG TAB PO (22:10)
[2019-02-03] MEDS: ARTIFICIAL TEARS 15 ML OPH BOTH EYES (01:12)
[2019-02-03] MEDS: ACETAMINOPHEN 650MG/20.3ML CUP PO (01:13)
[2019-02-03 02:05] LABS: AADO2 Arterial 227.8 mmHg (7.0-24.0); Allen Test ACCEPTAB; Arterial Base Excess 3.4 mmol/L (-3.0-3); Arterial Blood Gas Oxygen Sat 98.9 mmHG (95.0-98.0); Arterial COHb 0.2 % (0.0-3.0); Arterial Fraction of Oxyhgb 98.4 % (93.0-99.0); Arterial HCO3 25.9 mmol/L (22.0-26.0); Arterial MetHb 0.3 % (0.0-1.5); Arterial pCO2 31.8 mmhg (35-45); MODE VENT - AC; Site Right Radial
[2019-02-03] MEDS: IPRATROPIUM (HFA) 12.9 GM INHALER INH ×4 (02:49→19:27)
[2019-02-03] MEDS: FENTAnyl (DRIP) 1000 mcg/100mL 100 ML IV (05:04)
[2019-02-03] MEDS: PANTOPRAZOLE 40 MG INJ IV (05:06)
[2019-02-03 05:23] LABS: ADD MAN DIFF? NO
[2019-02-03 05:34] LABS: WHITE BLOOD COUNT 14.5 10^3/ul (4.8-10.8)
[2019-02-03 05:34] LABS: ABNORMAL IP MESSAGE 1; BASOPHIL # 0.1 10^3/ul (0.0-0.1); BASOPHILS % 0.8 % (0.0-2.0); EOSINOPHILS # 0.4 10^3/ul (0.0-0.5); EOSINOPHILS % 2.9 % (0.0-7.0); HEMATOCRIT 25.3 % (37.0-47.0); LYMPHOCYTES # 1.8 10^3/ul (0.8-2.9); LYMPHOCYTES % 12.1 % (15.0-51.0); MEAN CORPUSCULAR HEMOGLOBIN 29.3 pg (29.0-33.0); MEAN CORPUSCULAR HGB CONC 31.6 g/dl (32.0-37.0); MEAN CORPUSCULAR VOLUME 92.7 fl (82.0-101.0); MEAN PLATELET VOLUME 14.1 fl (7.4-10.4); MONOCYTE # 0.9 10^3/ul (0.3-0.9); MONOCYTES % 6.3 % (0.0-11.0); NEUTROPHIL # 10.7 10^3/ul (1.6-7.5); NEUTROPHILS % 73.4 % (39.0-77.0); PLATELET COUNT 201 10^3/UL (140-415); RED BLOOD COUNT 2.73 10^6/ul (4.20-5.40); RED CELL DISTRIBUTION WIDTH 16.2 % (11.5-14.5)
[2019-02-03 05:36] LABS: POSITIVE DIFF @See below
[2019-02-03 06:05] LABS: ANION GAP 9 (5-13); BLOOD UREA NITROGEN 43 mg/dl (7-20); CALCIUM 8.2 mg/dl (8.4-10.2); CARBON DIOXIDE 28 mmol/L (21-31); CHLORIDE 101 mmol/L (97-110); CREATININE 2.56 mg/dl (0.44-1.00); Estimated GFR 21 mL/min (>60); GLUCOSE 109 mg/dl (70-220); MAGNESIUM 2.3 mg/dl (1.7-2.5); PHOSPHORUS 2.9 mg/dl (2.5-4.9); POTASSIUM 3.4 mmol/L (3.5-5.1); SODIUM 138 mmol/L (135-144)
[2019-02-03 07:36] LABS: Allen Test ACCEPTAB; Arterial Base Excess 3.4 mmol/L (-3.0-3); Arterial COHb 0.2 % (0.0-3.0); Arterial Fraction of Oxyhgb 98.6 % (93.0-99.0); Arterial HCO3 27.1 mmol/L (22.0-26.0); Arterial MetHb 0.2 % (0.0-1.5); Arterial pCO2 37.3 mmhg (35-45); MODE VENT - AC; Site Left Radial
[2019-02-03] MEDS: ALBUTEROL HFA 8 GM INHALER INH ×3 (08:17→19:27)
[2019-02-03] MEDS: LACTOBACILLUS RHAMNOSUS CAP GTB ×3 (08:39→20:34)
[2019-02-03] MEDS: DOCUSATE SODIUM 10 MG/ML (10ML CUP) GTB ×2 (08:39→20:27)
[2019-02-03] MEDS: ASPIRIN 81 MG TAB NGT (08:39)
[2019-02-03] MEDS: SEVELAMER CARBONATE 2.4 GM PKT GTB ×3 (08:39→18:39)
[2019-02-03] MEDS: MULTIVITAMINS 30 ML CUP NGT (08:40)
[2019-02-03] MEDS: FOLIC ACID 1 MG TAB NGT (08:40)
[2019-02-03] MEDS: ASCORBIC ACID 500 MG TAB NGT (08:40)
[2019-02-03] MEDS: ZINC SULFATE 220 MG CAP NGT (08:40)
[2019-02-03] MEDS: RIFAXIMIN 200 MG TAB PO ×3 (08:40→20:34)
[2019-02-03] MEDS: CLOPIDOGREL 75 MG TAB NGT (08:40)
[2019-02-03] MEDS: POTASSIUM CHLORIDE 100 ML IVPB (08:50)
[2019-02-03 09:40] LABS: HEMATOCRIT 25.1 % (37.0-47.0); HEMOGLOBIN 7.9 g/dl (12.0-16.0)
[2019-02-03] MEDS: CEFEPIME 1GM/50 ML (PMX) 50 ML IVPB (12:01)
[2019-02-03] MEDS: ATORVASTATIN 80 MG TAB PO (20:34)
[2019-02-04] MEDS: IPRATROPIUM (HFA) 12.9 GM INHALER INH ×4 (01:26→19:35)
[2019-02-04 05:23] LABS: HEMATOCRIT 26.7 % (37.0-47.0); HEMOGLOBIN 8.3 g/dl (12.0-16.0); RED BLOOD COUNT 2.86 10^6/ul (4.20-5.40)
[2019-02-04 05:24] LABS: ABNORMAL IP MESSAGE 1; MEAN CORPUSCULAR HGB CONC 31.1 g/dl (32.0-37.0); MEAN CORPUSCULAR VOLUME 93.4 fl (82.0-101.0); MEAN PLATELET VOLUME 13.8 fl (7.4-10.4); PLATELET COUNT 183 10^3/UL (140-415); RED CELL DISTRIBUTION WIDTH 16.2 % (11.5-14.5)
[2019-02-04 05:43] LABS: VANCOMYCIN,RANDOM 13.6 ug/ml
[2019-02-04] MEDS: PANTOPRAZOLE 40 MG INJ IV (05:44)
[2019-02-04] MEDS: ACETAMINOPHEN 650MG/20.3ML CUP PO (05:44)
[2019-02-04 05:50] LABS: Estimated GFR 18 mL/min (>60)
[2019-02-04 06:04] LABS: ANION GAP 8 (5-13); BLOOD UREA NITROGEN 66 mg/dl (7-20); CARBON DIOXIDE 27 mmol/L (21-31); CHLORIDE 103 mmol/L (97-110); CREATININE 2.92 mg/dl (0.44-1.00); GLUCOSE 113 mg/dl (70-220); MAGNESIUM 2.5 mg/dl (1.7-2.5); PHOSPHORUS 3.6 mg/dl (2.5-4.9); POTASSIUM 3.9 mmol/L (3.5-5.1); SODIUM 138 mmol/L (135-144)
[2019-02-04 06:13] LABS: POSITIVE DIFF @See below
[2019-02-04 06:14] LABS: ADD MAN DIFF? YES
[2019-02-04 07:35] LABS: ANISOCYTOSIS 1+ (0-0); BAND NEUTROPHILS #M 0.1 10^3/ul (0.0-0.6); BAND NEUTROPHILS % (M) 1 % (0-4); BASOPHIL #M 0.1 10^3/ul (0.0-0.0); BASOPHILS % (M) 1 % (0-2); EOSINOPHILS % (M) 3 % (0-7); HYPOCHROMASIA 1+ (0-0); LYMPHOCYTES #M 1.6 10^3/ul (0.8-2.9); LYMPHOCYTES % (M) 11 % (15-51); MONOCYTE #M 0.1 10^3/ul (0.3-0.9); MONOCYTES % (M) 1 % (0-11); PLATELET ESTIMATE NORMAL; POLYCHROMASIA 1+ (0-0); SEG NEUT #M 12.5 10^3/ul (1.6-7.5); SEGMENTED NEUTROPHILS (M) % 83 % (39-77); SMUDGE%M 21 % (0-0)
[2019-02-04] MEDS: DOCUSATE SODIUM 10 MG/ML (10ML CUP) GTB ×2 (08:03→21:13)
[2019-02-04] MEDS: RIFAXIMIN 200 MG TAB PO ×3 (08:03→21:13)
[2019-02-04] MEDS: MULTIVITAMINS 30 ML CUP NGT (08:03)
[2019-02-04] MEDS: LACTOBACILLUS RHAMNOSUS CAP GTB ×3 (08:04→21:13)
[2019-02-04] MEDS: CLOPIDOGREL 75 MG TAB NGT (08:04)
[2019-02-04] MEDS: FOLIC ACID 1 MG TAB NGT (08:04)
[2019-02-04] MEDS: ZINC SULFATE 220 MG CAP NGT (08:04)
[2019-02-04] MEDS: ASPIRIN 81 MG TAB NGT (08:04)
[2019-02-04] MEDS: ASCORBIC ACID 500 MG TAB NGT (08:04)
[2019-02-04] MEDS: SEVELAMER CARBONATE 2.4 GM PKT GTB ×3 (08:04→18:03)
[2019-02-04] MEDS: ALBUTEROL HFA 8 GM INHALER INH ×3 (08:58→19:36)
[2019-02-04] MEDS ORDERED: morphine LIQ (10 MG/5 ML) CUP PO (12:00)
[2019-02-04] MEDS: CEFEPIME 1GM/50 ML (PMX) 50 ML IVPB (12:41)
[2019-02-04] MEDS: HEPARIN 1000 UNITS/ML 10 ML INJ CATHETER (12:47)
[2019-02-04] MEDS: HEPARIN 5,000 UNIT/1 ML VIAL SC ×2 (14:29→21:44)
[2019-02-04] MEDS: VANCOMYCIN 1 GM 250 ML IVPB (18:03)
[2019-02-04] MEDS: EPOETIN ALFA-EPBX (ESRD) 10,000 UNIT/ML VIAL SC (18:04)
[2019-02-04] MEDS: ATORVASTATIN 80 MG TAB PO (21:13)
[2019-02-05] MEDS: IPRATROPIUM (HFA) 12.9 GM INHALER INH ×6 (01:49→20:00)
[2019-02-05] MEDS: LANSOPRAZOLE 30 MG CAP GTB (05:30)
[2019-02-05] MEDS: HEPARIN 5,000 UNIT/1 ML VIAL SC ×3 (05:34→22:03)
[2019-02-05 06:04] LABS: WHITE BLOOD COUNT 14.7 10^3/ul (4.8-10.8)
[2019-02-05 06:04] LABS: ABNORMAL IP MESSAGE 1; HEMOGLOBIN 8.5 g/dl (12.0-16.0); MEAN CORPUSCULAR HEMOGLOBIN 29.2 pg (29.0-33.0); MEAN CORPUSCULAR HGB CONC 31.5 g/dl (32.0-37.0); MEAN CORPUSCULAR VOLUME 92.8 fl (82.0-101.0); MEAN PLATELET VOLUME 13.9 fl (7.4-10.4); PLATELET COUNT 179 10^3/UL (140-415); RED BLOOD COUNT 2.91 10^6/ul (4.20-5.40); RED CELL DISTRIBUTION WIDTH 16.4 % (11.5-14.5)
[2019-02-05 06:07] LABS: ADD MAN DIFF? YES; POSITIVE DIFF @See below
[2019-02-05 06:18] LABS: ALANINE AMINOTRANSFERASE 102 IU/L (13-69); ALBUMIN 2.6 g/dl (3.3-4.9); ALBUMIN/GLOBULIN RATIO 0.72; ALKALINE PHOSPHATASE 551 IU/L (42-121); ANION GAP 6 (5-13); ASPARTATE AMINO TRANSFERASE 301 IU/L (15-46); BILIRUBIN,INDIRECT 0.3 mg/dl (0-1.1); BILIRUBIN,TOTAL 0.3 mg/dl (0.2-1.3); BLOOD UREA NITROGEN 47 mg/dl (7-20); CALCIUM 8.7 mg/dl (8.4-10.2); CARBON DIOXIDE 28 mmol/L (21-31); CHLORIDE 102 mmol/L (97-110); CREATININE 2.12 mg/dl (0.44-1.00); Estimated GFR 26 mL/min (>60); GLUCOSE 113 mg/dl (70-220); MAGNESIUM 2.2 mg/dl (1.7-2.5); POTASSIUM 4.1 mmol/L (3.5-5.1); SODIUM 136 mmol/L (135-144); TOTAL PROTEIN 6.2 g/dl (6.1-8.1)
[2019-02-05 06:19] LABS: ANION GAP 5 (5-13); BLOOD UREA NITROGEN 46 mg/dl (7-20); CALCIUM 8.8 mg/dl (8.4-10.2); CARBON DIOXIDE 29 mmol/L (21-31); CHLORIDE 102 mmol/L (97-110); CREATININE 2.42 mg/dl (0.44-1.00); Estimated GFR 22 mL/min (>60); GLUCOSE 117 mg/dl (70-220); PHOSPHORUS 3.5 mg/dl (2.5-4.9); POTASSIUM 3.8 mmol/L (3.5-5.1); SODIUM 136 mmol/L (135-144)
[2019-02-05] MEDS: SEVELAMER CARBONATE 2.4 GM PKT GTB ×3 (07:03→18:00)
[2019-02-05 07:30] LABS: ANISOCYTOSIS 1+ (0-0); EOSINOPHILS % (M) 2 % (0-7); GIANT THROMBO% (M) 2 % (0-0); LYMPHOCYTES #M 1.1 10^3/ul (0.8-2.9); LYMPHOCYTES % (M) 8 % (15-51); METAMYELOCYTES #M 0.2 10^3/ul (0.0-0.0); METAMYELOCYTES %M 2 % (0-0); MONOCYTES % (M) 7 % (0-11); MYELOCYTES #M 0.1 10^3/ul (0.0-0.0); MYELOCYTES % (M) 1 % (0-0); PLATELET ESTIMATE NORMAL; POLYCHROMASIA 3+ (0-0); REACTIVE LYMPHOCYTES #M 0.1 10^3/ul (0.0-0.0); REACTIVE LYMPHOCYTES% (M) 1 % (0-0); SEGMENTED NEUTROPHILS (M) % 79 % (39-77); SMUDGE%M 6 % (0-0)
[2019-02-05] MEDS: ALBUTEROL HFA 8 GM INHALER INH ×3 (08:02→20:00)
[2019-02-05] MEDS: LACTOBACILLUS RHAMNOSUS CAP GTB ×3 (08:29→21:45)
[2019-02-05] MEDS: ZINC SULFATE 220 MG CAP NGT (08:29)
[2019-02-05] MEDS: ASCORBIC ACID 500 MG TAB NGT (08:30)
[2019-02-05] MEDS: RIFAXIMIN 200 MG TAB PO ×3 (08:30→21:44)
[2019-02-05] MEDS: CLOPIDOGREL 75 MG TAB NGT (08:30)
[2019-02-05] MEDS: ASPIRIN 81 MG TAB NGT (08:30)
[2019-02-05] MEDS: MULTIVITAMINS 30 ML CUP NGT (08:30)
[2019-02-05] MEDS: FOLIC ACID 1 MG TAB NGT (08:30)
[2019-02-05] MEDS: DOCUSATE SODIUM 10 MG/ML (10ML CUP) GTB ×2 (08:31→21:44)
[2019-02-05] MEDS: CEFEPIME 1GM/50 ML (PMX) 50 ML IVPB (10:34)
[2019-02-05] MEDS: morphine LIQ (10 MG/5 ML) CUP GTB (13:12)
[2019-02-05] MEDS: ATORVASTATIN 80 MG TAB PO (21:44)
[2019-02-05 22:39] LABS: CK INDEX 0.8; CREATINE KINASE 5536 IU/L (23-200)
[2019-02-06] MEDS: IPRATROPIUM (HFA) 12.9 GM INHALER INH ×4 (01:19→19:18)
[2019-02-06] MEDS: LANSOPRAZOLE 30 MG CAP GTB (06:34)
[2019-02-06] MEDS: HEPARIN 5,000 UNIT/1 ML VIAL SC ×3 (06:42→22:14)
[2019-02-06 07:03] LABS: WHITE BLOOD COUNT 12.2 10^3/ul (4.8-10.8)
[2019-02-06 07:03] LABS: ABNORMAL IP MESSAGE 1; HEMATOCRIT 27.1 % (37.0-47.0); HEMOGLOBIN 8.5 g/dl (12.0-16.0); MEAN CORPUSCULAR HEMOGLOBIN 29.2 pg (29.0-33.0); MEAN CORPUSCULAR HGB CONC 31.4 g/dl (32.0-37.0); MEAN CORPUSCULAR VOLUME 93.1 fl (82.0-101.0); PLATELET COUNT 170 10^3/UL (140-415); RED BLOOD COUNT 2.91 10^6/ul (4.20-5.40); RED CELL DISTRIBUTION WIDTH 16.4 % (11.5-14.5)
[2019-02-06 07:16] LABS: ADD MAN DIFF? YES; POSITIVE DIFF @See below
[2019-02-06 07:21] LABS: INR 1.09; PROTIME 14.2 Sec (11.9-14.9); PT RATIO 1.1
[2019-02-06 07:24] LABS: CREATINE KINASE 1451 IU/L (23-200)
[2019-02-06 07:31] LABS: PHOSPHORUS 4.7 mg/dl (2.5-4.9)
[2019-02-06 07:35] LABS: CK INDEX 2.2
[2019-02-06 07:38] LABS: ALANINE AMINOTRANSFERASE 123 IU/L (13-69); ALBUMIN 2.5 g/dl (3.3-4.9); ALBUMIN/GLOBULIN RATIO 0.69; ALKALINE PHOSPHATASE 928 IU/L (42-121); ANION GAP 7 (5-13); ASPARTATE AMINO TRANSFERASE 236 IU/L (15-46); BILIRUBIN,INDIRECT 0.2 mg/dl (0-1.1); BILIRUBIN,TOTAL 0.2 mg/dl (0.2-1.3); BLOOD UREA NITROGEN 69 mg/dl (7-20); CARBON DIOXIDE 27 mmol/L (21-31); CHLORIDE 101 mmol/L (97-110); CREATININE 3.24 mg/dl (0.44-1.00); Estimated GFR 16 mL/min (>60); GLUCOSE 111 mg/dl (70-220); MAGNESIUM 2.4 mg/dl (1.7-2.5); POTASSIUM 3.9 mmol/L (3.5-5.1); SODIUM 135 mmol/L (135-144); TOTAL PROTEIN 6.1 g/dl (6.1-8.1)
[2019-02-06 07:39] LABS: ALANINE AMINOTRANSFERASE 121 IU/L (13-69); ALBUMIN 2.5 g/dl (3.3-4.9); ALKALINE PHOSPHATASE 924 IU/L (42-121); ASPARTATE AMINO TRANSFERASE 239 IU/L (15-46); BILIRUBIN,INDIRECT 0.2 mg/dl (0-1.1); BILIRUBIN,TOTAL 0.2 mg/dl (0.2-1.3); TOTAL PROTEIN 6.1 g/dl (6.1-8.1)
[2019-02-06] MEDS: ALBUTEROL HFA 8 GM INHALER INH ×3 (07:51→19:18)
[2019-02-06] MEDS: SEVELAMER CARBONATE 2.4 GM PKT GTB ×3 (08:00→17:48)
[2019-02-06 08:16] LABS: ANISOCYTOSIS 2+ (0-0); BAND NEUTROPHILS #M 0.2 10^3/ul (0.0-0.6); BAND NEUTROPHILS % (M) 2 % (0-4); BASOPHIL #M 0.1 10^3/ul (0.0-0.0); BASOPHILS % (M) 1 % (0-2); EOSINOPHILS % (M) 6 % (0-7); GIANT THROMBO% (M) 3 % (0-0); HYPOCHROMASIA 1+ (0-0); LYMPHOCYTES #M 1.8 10^3/ul (0.8-2.9); LYMPHOCYTES % (M) 15 % (15-51); METAMYELOCYTES #M 0.1 10^3/ul (0.0-0.0); METAMYELOCYTES %M 1 % (0-0); MICROCYTOSIS 2+ (0-0); MONOCYTE #M 0.7 10^3/ul (0.3-0.9); MONOCYTES % (M) 6 % (0-11); PLATELET ESTIMATE NORMAL; POIKILOCYTOSIS 1+ (0-0); POLYCHROMASIA 3+ (0-0); SEG NEUT #M 8.4 10^3/ul (1.6-7.5); SEGMENTED NEUTROPHILS (M) % 69 % (39-77); SMUDGE%M 4 % (0-0)
[2019-02-06] MEDS: DOCUSATE SODIUM 10 MG/ML (10ML CUP) GTB ×2 (08:25→21:00)
[2019-02-06] MEDS: LACTOBACILLUS RHAMNOSUS CAP GTB ×3 (08:25→21:51)
[2019-02-06] MEDS: RIFAXIMIN 200 MG TAB PO ×3 (08:26→21:51)
[2019-02-06] MEDS: HEPARIN 1000 UNITS/ML 10 ML INJ CATHETER (12:16)
[2019-02-06] MEDS: CEFEPIME 1GM/50 ML (PMX) 50 ML IVPB (14:11)
[2019-02-06] MEDS: CLOPIDOGREL 75 MG TAB NGT (14:39)
[2019-02-06] MEDS: MULTIVITAMINS 30 ML CUP NGT (14:39)
[2019-02-06] MEDS: ZINC SULFATE 220 MG CAP NGT (14:40)
[2019-02-06] MEDS: ASCORBIC ACID 500 MG TAB NGT (14:40)
[2019-02-06] MEDS: ASPIRIN 81 MG TAB NGT (14:40)
[2019-02-06] MEDS: FOLIC ACID 1 MG TAB NGT (14:40)
[2019-02-06] MEDS: EPOETIN ALFA-EPBX (ESRD) 10,000 UNIT/ML VIAL SC (17:51)
[2019-02-06] MEDS: ACETAMINOPHEN 650MG/20.3ML CUP PO (18:38)
[2019-02-06] MEDS: ATORVASTATIN 80 MG TAB PO (21:51)
[2019-02-07] MEDS: ACETAMINOPHEN 650MG/20.3ML CUP PO (00:29)
[2019-02-07] MEDS: IPRATROPIUM (HFA) 12.9 GM INHALER INH ×4 (01:47→19:51)
[2019-02-07] MEDS: ONDANSETRON 4 MG INJ IV (03:18)
[2019-02-07 05:26] LABS: ABNORMAL IP MESSAGE 1; HEMATOCRIT 28.4 % (37.0-47.0); HEMOGLOBIN 8.6 g/dl (12.0-16.0); MEAN CORPUSCULAR HEMOGLOBIN 29.4 pg (29.0-33.0); MEAN CORPUSCULAR HGB CONC 30.3 g/dl (32.0-37.0); MEAN CORPUSCULAR VOLUME 96.9 fl (82.0-101.0); MEAN PLATELET VOLUME 14.1 fl (7.4-10.4); PLATELET COUNT 170 10^3/UL (140-415); RED BLOOD COUNT 2.93 10^6/ul (4.20-5.40); RED CELL DISTRIBUTION WIDTH 20.3 % (11.5-14.5)
[2019-02-07 05:34] LABS: ADD MAN DIFF? YES; POSITIVE DIFF @See below
[2019-02-07 05:40] LABS: ALANINE AMINOTRANSFERASE 107 IU/L (13-69); ALBUMIN/GLOBULIN RATIO 0.76; ALKALINE PHOSPHATASE 733 IU/L (42-121); ANION GAP 10 (5-13); ASPARTATE AMINO TRANSFERASE 181 IU/L (15-46); BILIRUBIN,INDIRECT 0.1 mg/dl (0-1.1); BILIRUBIN,TOTAL 0.1 mg/dl (0.2-1.3); BLOOD UREA NITROGEN 49 mg/dl (7-20); CARBON DIOXIDE 28 mmol/L (21-31); CHLORIDE 98 mmol/L (97-110); CREATININE 2.88 mg/dl (0.44-1.00); Estimated GFR 18 mL/min (>60); GLUCOSE 104 mg/dl (70-220); POTASSIUM 3.6 mmol/L (3.5-5.1); SODIUM 136 mmol/L (135-144); TOTAL PROTEIN 6.9 g/dl (6.1-8.1)
[2019-02-07 05:49] LABS: VANCOMYCIN,RANDOM 14.5 ug/ml
[2019-02-07] MEDS: LANSOPRAZOLE 30 MG CAP GTB (06:00)
[2019-02-07] MEDS: HEPARIN 5,000 UNIT/1 ML VIAL SC ×3 (06:04→22:18)
[2019-02-07 07:46] LABS: ANISOCYTOSIS 1+ (0-0); BAND NEUTROPHILS #M 0.2 10^3/ul (0.0-0.6); BAND NEUTROPHILS % (M) 2 % (0-4); EOSINOPHILS % (M) 2 % (0-7); GIANT THROMBO% (M) 3 % (0-0); LYMPHOCYTES #M 1.9 10^3/ul (0.8-2.9); LYMPHOCYTES % (M) 15 % (15-51); MICROCYTOSIS 1+ (0-0); MONOCYTE #M 0.9 10^3/ul (0.3-0.9); MONOCYTES % (M) 7 % (0-11); MYELOCYTES #M 0.5 10^3/ul (0.0-0.0); MYELOCYTES % (M) 4 % (0-0); PLATELET ESTIMATE NORMAL; POIKILOCYTOSIS 1+ (0-0); POLYCHROMASIA 2+ (0-0); REACTIVE LYMPHOCYTES #M 0.5 10^3/ul (0.0-0.0); REACTIVE LYMPHOCYTES% (M) 4 % (0-0); SEG NEUT #M 8.6 10^3/ul (1.6-7.5); SEGMENTED NEUTROPHILS (M) % 66 % (39-77); SMUDGE%M 30 % (0-0); STOMATOCYTES 1+ (0-0)
[2019-02-07] MEDS: ALBUTEROL HFA 8 GM INHALER INH ×3 (08:34→19:50)
[2019-02-07] MEDS: RIFAXIMIN 200 MG TAB PO ×3 (08:44→20:45)
[2019-02-07] MEDS: FOLIC ACID 1 MG TAB NGT (08:44)
[2019-02-07] MEDS: ASCORBIC ACID 500 MG TAB NGT (08:44)
[2019-02-07] MEDS: LACTOBACILLUS RHAMNOSUS CAP GTB ×3 (08:44→20:46)
[2019-02-07] MEDS: SEVELAMER CARBONATE 2.4 GM PKT GTB ×3 (08:44→17:31)
[2019-02-07] MEDS: MULTIVITAMINS 30 ML CUP NGT (08:44)
[2019-02-07] MEDS: ZINC SULFATE 220 MG CAP NGT (08:44)
[2019-02-07] MEDS: CLOPIDOGREL 75 MG TAB NGT (08:44)
[2019-02-07] MEDS: ASPIRIN 81 MG TAB NGT (08:44)
[2019-02-07] MEDS: DOCUSATE SODIUM 10 MG/ML (10ML CUP) GTB ×2 (08:46→20:54)
[2019-02-07] MEDS: oxyCODONE 5 MG TAB PO (10:09)
[2019-02-07] MEDS: CEFEPIME 1GM/50 ML (PMX) 50 ML IVPB (10:10)
[2019-02-07 10:43] LABS: MAGNESIUM 2.3 mg/dl (1.7-2.5)
[2019-02-07] MEDS: VANCOMYCIN 1 GM 250 ML IVPB (17:31)
[2019-02-07] MEDS: ATORVASTATIN 80 MG TAB PO (20:45)
[2019-02-08] MEDS: IPRATROPIUM (HFA) 12.9 GM INHALER INH ×4 (03:45→19:55)
[2019-02-08] MEDS: LANSOPRAZOLE 30 MG CAP GTB (05:12)
[2019-02-08] MEDS: HEPARIN 5,000 UNIT/1 ML VIAL SC ×3 (05:24→21:18)
[2019-02-08 06:56] LABS: ADD MAN DIFF? NO
[2019-02-08 07:08] LABS: ABNORMAL IP MESSAGE 1; BASOPHIL # 0.1 10^3/ul (0.0-0.1); BASOPHILS % 0.8 % (0.0-2.0); EOSINOPHILS # 0.4 10^3/ul (0.0-0.5); EOSINOPHILS % 3.4 % (0.0-7.0); HEMATOCRIT 26.3 % (37.0-47.0); HEMOGLOBIN 8.2 g/dl (12.0-16.0); LYMPHOCYTES % 16.9 % (15.0-51.0); MEAN CORPUSCULAR HEMOGLOBIN 29.6 pg (29.0-33.0); MEAN CORPUSCULAR HGB CONC 31.2 g/dl (32.0-37.0); MEAN CORPUSCULAR VOLUME 94.9 fl (82.0-101.0); MEAN PLATELET VOLUME 14.1 fl (7.4-10.4); MONOCYTES % 8.7 % (0.0-11.0); NEUTROPHIL # 7.9 10^3/ul (1.6-7.5); NEUTROPHILS % 65.5 % (39.0-77.0); PLATELET COUNT 177 10^3/UL (140-415); RED BLOOD COUNT 2.77 10^6/ul (4.20-5.40); RED CELL DISTRIBUTION WIDTH 16.4 % (11.5-14.5)
[2019-02-08 07:15] LABS: POSITIVE DIFF @See below
[2019-02-08 07:57] LABS: ANION GAP 10 (5-13); BLOOD UREA NITROGEN 63 mg/dl (7-20); CALCIUM 9.3 mg/dl (8.4-10.2); CARBON DIOXIDE 24 mmol/L (21-31); CHLORIDE 103 mmol/L (97-110); CREATININE 3.53 mg/dl (0.44-1.00); Estimated GFR 14 mL/min (>60); GLUCOSE 120 mg/dl (70-220); MAGNESIUM 2.4 mg/dl (1.7-2.5); PHOSPHORUS 5.6 mg/dl (2.5-4.9); POTASSIUM 3.2 mmol/L (3.5-5.1); SODIUM 137 mmol/L (135-144)
[2019-02-08] MEDS: ALBUTEROL HFA 8 GM INHALER INH ×3 (08:07→19:55)
[2019-02-08] MEDS: DOCUSATE SODIUM 10 MG/ML (10ML CUP) GTB ×2 (08:42→21:03)
[2019-02-08] MEDS: POTASSIUM CHLORIDE 20 MEQ POWDER FOR ORAL SOLN GTB (08:42)
[2019-02-08] MEDS: SEVELAMER CARBONATE 2.4 GM PKT GTB ×3 (08:42→17:18)
[2019-02-08] MEDS: ASPIRIN 81 MG TAB NGT (08:43)
[2019-02-08] MEDS: CLOPIDOGREL 75 MG TAB NGT (08:43)
[2019-02-08] MEDS: ZINC SULFATE 220 MG CAP NGT (08:43)
[2019-02-08] MEDS: RIFAXIMIN 200 MG TAB PO ×3 (09:00→21:03)
[2019-02-08] MEDS: LACTOBACILLUS RHAMNOSUS CAP GTB ×3 (09:00→21:03)
[2019-02-08] MEDS: ALTEPLASE (CATHFLO) 2 MG INJ CATHETER (11:23)
[2019-02-08] MEDS: ASCORBIC ACID 500 MG TAB NGT (12:57)
[2019-02-08] MEDS: ONDANSETRON 4 MG INJ IV (12:57)
[2019-02-08] MEDS: MULTIVITAMINS 30 ML CUP NGT (12:59)
[2019-02-08] MEDS: oxyCODONE 5 MG TAB PO (13:01)
[2019-02-08] MEDS: FOLIC ACID 1 MG TAB NGT (13:01)
[2019-02-08] MEDS: CEFEPIME 1GM/50 ML (PMX) 50 ML IVPB (13:01)
[2019-02-08] MEDS: ATORVASTATIN 80 MG TAB PO (21:03)
[2019-02-09] MEDS: IPRATROPIUM (HFA) 12.9 GM INHALER INH ×4 (01:03→20:07)
[2019-02-09] MEDS: LANSOPRAZOLE 30 MG CAP GTB (05:39)
[2019-02-09] MEDS: HEPARIN 5,000 UNIT/1 ML VIAL SC ×3 (05:56→23:09)
[2019-02-09 06:18] LABS: ADD MAN DIFF? NO
[2019-02-09 06:21] LABS: ABNORMAL IP MESSAGE 1; BASOPHIL # 0.1 10^3/ul (0.0-0.1); BASOPHILS % 0.9 % (0.0-2.0); EOSINOPHILS # 0.3 10^3/ul (0.0-0.5); EOSINOPHILS % 2.8 % (0.0-7.0); HEMATOCRIT 27.5 % (37.0-47.0); HEMOGLOBIN 8.4 g/dl (12.0-16.0); LYMPHOCYTES % 16.5 % (15.0-51.0); MEAN CORPUSCULAR HEMOGLOBIN 29.4 pg (29.0-33.0); MEAN CORPUSCULAR HGB CONC 30.5 g/dl (32.0-37.0); MEAN CORPUSCULAR VOLUME 96.2 fl (82.0-101.0); MEAN PLATELET VOLUME 13.7 fl (7.4-10.4); MONOCYTES % 8.4 % (0.0-11.0); NEUTROPHIL # 8.1 10^3/ul (1.6-7.5); NEUTROPHILS % 66.6 % (39.0-77.0); PLATELET COUNT 199 10^3/UL (140-415); RED BLOOD COUNT 2.86 10^6/ul (4.20-5.40); RED CELL DISTRIBUTION WIDTH 16.9 % (11.5-14.5)
[2019-02-09 06:21] LABS: WHITE BLOOD COUNT 12.2 10^3/ul (4.8-10.8)
[2019-02-09 06:36] LABS: POSITIVE DIFF @See below
[2019-02-09 06:52] LABS: ALANINE AMINOTRANSFERASE 101 IU/L (13-69); ALBUMIN 2.8 g/dl (3.3-4.9); ALKALINE PHOSPHATASE 563 IU/L (42-121); ASPARTATE AMINO TRANSFERASE 78 IU/L (15-46); BILIRUBIN,INDIRECT 0.2 mg/dl (0-1.1); BILIRUBIN,TOTAL 0.2 mg/dl (0.2-1.3); TOTAL PROTEIN 6.5 g/dl (6.1-8.1)
[2019-02-09 07:02] LABS: ANION GAP 9 (5-13); BLOOD UREA NITROGEN 45 mg/dl (7-20); CALCIUM 9.2 mg/dl (8.4-10.2); CARBON DIOXIDE 27 mmol/L (21-31); CHLORIDE 100 mmol/L (97-110); CREATININE 2.87 mg/dl (0.44-1.00); Estimated GFR 18 mL/min (>60); GLUCOSE 119 mg/dl (70-220); MAGNESIUM 2.3 mg/dl (1.7-2.5); POTASSIUM 3.9 mmol/L (3.5-5.1); SODIUM 136 mmol/L (135-144)
[2019-02-09 07:35] LABS: PHOSPHORUS 4.5 mg/dl (2.5-4.9)
[2019-02-09] MEDS: ALBUTEROL HFA 8 GM INHALER INH ×3 (08:46→20:08)
[2019-02-09] MEDS: DOCUSATE SODIUM 10 MG/ML (10ML CUP) GTB ×2 (09:00→20:47)
[2019-02-09] MEDS: SEVELAMER CARBONATE 2.4 GM PKT GTB ×3 (09:05→17:18)
[2019-02-09] MEDS: LACTOBACILLUS RHAMNOSUS CAP GTB ×3 (09:06→20:47)
[2019-02-09] MEDS: ZINC SULFATE 220 MG CAP NGT (09:06)
[2019-02-09] MEDS: RIFAXIMIN 200 MG TAB PO ×3 (09:06→20:47)
[2019-02-09] MEDS: MULTIVITAMINS 30 ML CUP NGT (09:06)
[2019-02-09] MEDS: CLOPIDOGREL 75 MG TAB NGT (09:06)
[2019-02-09] MEDS: FOLIC ACID 1 MG TAB NGT (09:06)
[2019-02-09] MEDS: ASPIRIN 81 MG TAB NGT (09:06)
[2019-02-09] MEDS: ASCORBIC ACID 500 MG TAB NGT (09:06)
[2019-02-09] MEDS: CEFEPIME 1GM/50 ML (PMX) 50 ML IVPB (10:39)
[2019-02-09] MEDS: EPOETIN ALFA-EPBX (ESRD) 10,000 UNIT/ML VIAL SC (17:17)
[2019-02-09] MEDS: ATORVASTATIN 80 MG TAB PO (20:47)
[2019-02-10] MEDS: IPRATROPIUM (HFA) 12.9 GM INHALER INH ×4 (01:03→19:04)
[2019-02-10 05:39] LABS: ADD MAN DIFF? NO
[2019-02-10 05:47] LABS: WHITE BLOOD COUNT 12.4 10^3/ul (4.8-10.8)
[2019-02-10 05:47] LABS: ABNORMAL IP MESSAGE 1; BASOPHIL # 0.1 10^3/ul (0.0-0.1); EOSINOPHILS # 0.4 10^3/ul (0.0-0.5); EOSINOPHILS % 2.8 % (0.0-7.0); HEMATOCRIT 26.2 % (37.0-47.0); LYMPHOCYTES # 2.4 10^3/ul (0.8-2.9); LYMPHOCYTES % 19.5 % (15.0-51.0); MEAN CORPUSCULAR HEMOGLOBIN 29.3 pg (29.0-33.0); MEAN CORPUSCULAR HGB CONC 30.5 g/dl (32.0-37.0); MEAN PLATELET VOLUME 13.3 fl (7.4-10.4); MONOCYTE # 0.9 10^3/ul (0.3-0.9); MONOCYTES % 7.5 % (0.0-11.0); NEUTROPHILS % 64.4 % (39.0-77.0); PLATELET COUNT 195 10^3/UL (140-415); RED BLOOD COUNT 2.73 10^6/ul (4.20-5.40)
[2019-02-10] MEDS: HEPARIN 5,000 UNIT/1 ML VIAL SC ×3 (05:57→22:15)
[2019-02-10] MEDS: LANSOPRAZOLE 30 MG CAP GTB (05:57)
[2019-02-10 05:59] LABS: POSITIVE DIFF @See below
[2019-02-10 06:03] LABS: CREATINE KINASE 53 IU/L (23-200)
[2019-02-10 06:05] LABS: INR 1.09; PROTIME 14.2 Sec (11.9-14.9); PT RATIO 1.1
[2019-02-10 06:15] LABS: CK INDEX 22.3
[2019-02-10 06:19] LABS: ALANINE AMINOTRANSFERASE 83 IU/L (13-69); ALBUMIN 2.7 g/dl (3.3-4.9); ALBUMIN/GLOBULIN RATIO 0.72; ALKALINE PHOSPHATASE 464 IU/L (42-121); ANION GAP 11 (5-13); ASPARTATE AMINO TRANSFERASE 67 IU/L (15-46); BILIRUBIN,INDIRECT 0.1 mg/dl (0-1.1); BILIRUBIN,TOTAL 0.1 mg/dl (0.2-1.3); BLOOD UREA NITROGEN 57 mg/dl (7-20); CALCIUM 9.5 mg/dl (8.4-10.2); CARBON DIOXIDE 24 mmol/L (21-31); CHLORIDE 101 mmol/L (97-110); CREATININE 3.49 mg/dl (0.44-1.00); Estimated GFR 15 mL/min (>60); GLUCOSE 98 mg/dl (70-220); POTASSIUM 4.5 mmol/L (3.5-5.1); SODIUM 136 mmol/L (135-144); TOTAL PROTEIN 6.4 g/dl (6.1-8.1)
[2019-02-10 06:26] LABS: TROPONIN-I 0.123 ng/ml (0.000-0.120)
[2019-02-10 06:27] LABS: PHOSPHORUS 5.4 mg/dl (2.5-4.9)
[2019-02-10 06:27] LABS: MAGNESIUM 2.4 mg/dl (1.7-2.5)
[2019-02-10] MEDS: SEVELAMER CARBONATE 2.4 GM PKT GTB ×2 (08:00→16:37)
[2019-02-10] MEDS: LACTOBACILLUS RHAMNOSUS CAP GTB ×3 (08:07→21:06)
[2019-02-10] MEDS: DOCUSATE SODIUM 10 MG/ML (10ML CUP) GTB ×2 (08:07→21:06)
[2019-02-10] MEDS: ALBUTEROL HFA 8 GM INHALER INH ×3 (08:07→19:04)
[2019-02-10] MEDS: ASCORBIC ACID 500 MG TAB NGT (08:07)
[2019-02-10] MEDS: ASPIRIN 81 MG TAB NGT (08:07)
[2019-02-10] MEDS: CLOPIDOGREL 75 MG TAB NGT (08:07)
[2019-02-10] MEDS: FOLIC ACID 1 MG TAB NGT (08:07)
[2019-02-10] MEDS: MULTIVITAMINS 30 ML CUP NGT (08:07)
[2019-02-10] MEDS: RIFAXIMIN 200 MG TAB PO ×3 (08:08→21:06)
[2019-02-10] MEDS: ZINC SULFATE 220 MG CAP NGT (08:08)
[2019-02-10] MEDS: hydrALAzine 20 MG INJ IV (08:58)
[2019-02-10] MEDS ORDERED: NITROGLYCERIN (IC) 100 MCG/ML INJ (09:50)
[2019-02-10] MEDS ORDERED: BIVALIRUDIN 250MG /NS 50 ML 50 ML IVPB (09:50)
[2019-02-10] MEDS ORDERED: FENTAnyl 50 MCG/ML VIAL (09:50)
[2019-02-10] MEDS ORDERED: IODIXANOL LOCM 50 ML BTL (09:50)
[2019-02-10] MEDS ORDERED: MIDAZOLAM 1 MG/ML 2 ML INJ (09:50)
[2019-02-10] MEDS ORDERED: LIDOCAINE 1% (MDV) 20 ML INJ (09:50)
[2019-02-10] MEDS ORDERED: IOHEXOL 350MG/ML 50 ML BTL (09:51)
[2019-02-10] MEDS ORDERED: ASPIRIN 81 MG TAB (10:17)
[2019-02-10] MEDS ORDERED: CLOPIDOGREL 300 MG TAB (10:17)
[2019-02-10] MEDS: SOD CHLORIDE 0.9% 1,000 ML IV (10:52)
[2019-02-10] MEDS ORDERED: ATROPINE 1 MG/10 ML SYRINGE (13:36)
[2019-02-10] MEDS ORDERED: ETOMIDATE 20 MG INJ (20:06)
[2019-02-10] MEDS ORDERED: PHENYLephrine (100 MCG/ML) 10ML SYG (20:09)
[2019-02-10] MEDS: ATORVASTATIN 80 MG TAB PO (21:06)
[2019-02-10] MEDS ORDERED: SUGAMMADEX SODIUM 200 MG/2 ML VIAL IV (21:07)
[2019-02-10] MEDS ORDERED: ROCURONIUM 50 MG INJ (21:07)
[2019-02-11] MEDS: IPRATROPIUM (HFA) 12.9 GM INHALER INH ×4 (01:25→19:11)
[2019-02-11] MEDS: LANSOPRAZOLE 30 MG CAP GTB (05:56)
[2019-02-11] MEDS: HEPARIN 5,000 UNIT/1 ML VIAL SC ×3 (06:06→23:18)
[2019-02-11 06:47] LABS: ADD MAN DIFF? NO
[2019-02-11 06:52] LABS: BASOPHIL # 0.1 10^3/ul (0.0-0.1); BASOPHILS % 0.9 % (0.0-2.0); EOSINOPHILS # 0.3 10^3/ul (0.0-0.5); EOSINOPHILS % 2.1 % (0.0-7.0); HEMATOCRIT 27.2 % (37.0-47.0); HEMOGLOBIN 8.3 g/dl (12.0-16.0); LYMPHOCYTES # 2.1 10^3/ul (0.8-2.9); LYMPHOCYTES % 17.4 % (15.0-51.0); MEAN CORPUSCULAR HEMOGLOBIN 29.2 pg (29.0-33.0); MEAN CORPUSCULAR HGB CONC 30.5 g/dl (32.0-37.0); MEAN CORPUSCULAR VOLUME 95.8 fl (82.0-101.0); MONOCYTES % 8.5 % (0.0-11.0); PLATELET COUNT 203 10^3/UL (140-415); RED BLOOD COUNT 2.84 10^6/ul (4.20-5.40); RED CELL DISTRIBUTION WIDTH 17.3 % (11.5-14.5)
[2019-02-11 07:09] LABS: ALBUMIN 3.2 g/dl (3.3-4.9); ANION GAP 13 (5-13); BLOOD UREA NITROGEN 70 mg/dl (7-20); CARBON DIOXIDE 23 mmol/L (21-31); CHLORIDE 99 mmol/L (97-110); CREATININE 4.49 mg/dl (0.44-1.00); GLUCOSE 110 mg/dl (70-220); MAGNESIUM 2.6 mg/dl (1.7-2.5); PHOSPHORUS 7.5 mg/dl (2.5-4.9); SODIUM 135 mmol/L (135-144)
[2019-02-11] MEDS: ALBUTEROL HFA 8 GM INHALER INH ×3 (07:58→19:11)
[2019-02-11] MEDS: RIFAXIMIN 200 MG TAB PO ×3 (08:51→20:28)
[2019-02-11] MEDS: DOCUSATE SODIUM 10 MG/ML (10ML CUP) GTB ×2 (08:51→08:59)
[2019-02-11] MEDS: MULTIVITAMINS 30 ML CUP NGT (08:51)
[2019-02-11] MEDS: CLOPIDOGREL 75 MG TAB NGT (08:51)
[2019-02-11] MEDS: SEVELAMER CARBONATE 2.4 GM PKT GTB ×3 (08:51→17:14)
[2019-02-11] MEDS: ZINC SULFATE 220 MG CAP NGT (08:52)
[2019-02-11] MEDS: ASPIRIN 81 MG TAB NGT (08:52)
[2019-02-11] MEDS: LACTOBACILLUS RHAMNOSUS CAP GTB ×3 (08:52→20:28)
[2019-02-11] MEDS: ASCORBIC ACID 500 MG TAB NGT (08:52)
[2019-02-11] MEDS: FOLIC ACID 1 MG TAB NGT (08:52)
[2019-02-11] MEDS: HEPARIN 1000 UNITS/ML 10 ML INJ CATHETER (15:28)
[2019-02-11] MEDS: EPOETIN ALFA-EPBX (ESRD) 10,000 UNIT/ML VIAL SC (17:17)
[2019-02-11] MEDS: ATORVASTATIN 80 MG TAB PO (20:28)
[2019-02-12] MEDS: IPRATROPIUM (HFA) 12.9 GM INHALER INH ×4 (01:03→20:10)
[2019-02-12] MEDS ORDERED: LORAZEPAM 2 MG INJ IV (02:30)
[2019-02-12] MEDS: LANSOPRAZOLE 30 MG CAP GTB (05:48)
[2019-02-12] MEDS: HEPARIN 5,000 UNIT/1 ML VIAL SC ×3 (05:51→23:46)
[2019-02-12] MEDS: ALBUTEROL HFA 8 GM INHALER INH ×3 (08:17→20:10)
[2019-02-12 08:37] LABS: ADD MAN DIFF? NO
[2019-02-12 08:40] LABS: BASOPHIL # 0.1 10^3/ul (0.0-0.1); BASOPHILS % 0.8 % (0.0-2.0); EOSINOPHILS # 0.3 10^3/ul (0.0-0.5); EOSINOPHILS % 2.1 % (0.0-7.0); HEMATOCRIT 26.2 % (37.0-47.0); LYMPHOCYTES # 2.3 10^3/ul (0.8-2.9); LYMPHOCYTES % 19.4 % (15.0-51.0); MEAN CORPUSCULAR HEMOGLOBIN 29.5 pg (29.0-33.0); MEAN CORPUSCULAR HGB CONC 30.5 g/dl (32.0-37.0); MEAN CORPUSCULAR VOLUME 96.7 fl (82.0-101.0); MEAN PLATELET VOLUME 12.9 fl (7.4-10.4); MONOCYTE # 1.1 10^3/ul (0.3-0.9); MONOCYTES % 8.8 % (0.0-11.0); NEUTROPHIL # 7.8 10^3/ul (1.6-7.5); NEUTROPHILS % 65.3 % (39.0-77.0); PLATELET COUNT 212 10^3/UL (140-415); RED BLOOD COUNT 2.71 10^6/ul (4.20-5.40); RED CELL DISTRIBUTION WIDTH 18.2 % (11.5-14.5)
[2019-02-12 08:40] LABS: WHITE BLOOD COUNT 11.9 10^3/ul (4.8-10.8)
[2019-02-12 09:03] LABS: ALBUMIN 3.2 g/dl (3.3-4.9); ANION GAP 10 (5-13); BLOOD UREA NITROGEN 37 mg/dl (7-20); CALCIUM 9.9 mg/dl (8.4-10.2); CARBON DIOXIDE 28 mmol/L (21-31); CHLORIDE 98 mmol/L (97-110); CREATININE 2.92 mg/dl (0.44-1.00); GLUCOSE 122 mg/dl (70-220); MAGNESIUM 2.4 mg/dl (1.7-2.5); PHOSPHORUS 5.2 mg/dl (2.5-4.9); POTASSIUM 3.5 mmol/L (3.5-5.1); SODIUM 136 mmol/L (135-144)
[2019-02-12] MEDS: LACTOBACILLUS RHAMNOSUS CAP GTB ×3 (10:08→22:55)
[2019-02-12] MEDS: CLOPIDOGREL 75 MG TAB NGT (10:08)
[2019-02-12] MEDS: MULTIVITAMINS 30 ML CUP NGT (10:08)
[2019-02-12] MEDS: ASPIRIN 81 MG TAB NGT (10:08)
[2019-02-12] MEDS: ZINC SULFATE 220 MG CAP NGT (10:08)
[2019-02-12] MEDS: RIFAXIMIN 200 MG TAB PO ×3 (10:08→23:03)
[2019-02-12] MEDS: ASCORBIC ACID 500 MG TAB NGT (10:08)
[2019-02-12] MEDS: FOLIC ACID 1 MG TAB NGT (10:08)
[2019-02-12] MEDS: SEVELAMER CARBONATE 2.4 GM PKT GTB ×3 (10:09→18:34)
[2019-02-12] MEDS: morphine LIQ (10 MG/5 ML) CUP GTB (16:15)
[2019-02-12] MEDS: ATORVASTATIN 80 MG TAB PO (23:06)
[2019-02-13] MEDS: IPRATROPIUM (HFA) 12.9 GM INHALER INH ×3 (01:17→14:00)
[2019-02-13] MEDS: LANSOPRAZOLE 30 MG CAP GTB (06:47)
[2019-02-13] MEDS: HEPARIN 5,000 UNIT/1 ML VIAL SC ×4 (07:42→21:22)
[2019-02-13] MEDS: ALBUTEROL HFA 8 GM INHALER INH ×2 (08:03→14:00)
[2019-02-13 08:28] LABS: ADD MAN DIFF? NO
[2019-02-13 08:32] LABS: BASOPHIL # 0.1 10^3/ul (0.0-0.1); BASOPHILS % 0.5 % (0.0-2.0); HEMATOCRIT 27.8 % (37.0-47.0); HEMOGLOBIN 8.4 g/dl (12.0-16.0); LYMPHOCYTES # 1.2 10^3/ul (0.8-2.9); LYMPHOCYTES % 12.1 % (15.0-51.0); MEAN CORPUSCULAR HEMOGLOBIN 28.8 pg (29.0-33.0); MEAN CORPUSCULAR HGB CONC 30.2 g/dl (32.0-37.0); MEAN CORPUSCULAR VOLUME 95.2 fl (82.0-101.0); MEAN PLATELET VOLUME 12.9 fl (7.4-10.4); MONOCYTE # 0.2 10^3/ul (0.3-0.9); MONOCYTES % 2.2 % (0.0-11.0); NEUTROPHIL # 8.3 10^3/ul (1.6-7.5); NEUTROPHILS % 81.2 % (39.0-77.0); NUCLEATED RED BLOOD CELLS% 0.2 /100WBC (0.0-0.0); PLATELET COUNT 229 10^3/UL (140-415); RED BLOOD COUNT 2.92 10^6/ul (4.20-5.40); RED CELL DISTRIBUTION WIDTH 17.7 % (11.5-14.5)
[2019-02-13 08:32] LABS: WHITE BLOOD COUNT 10.2 10^3/ul (4.8-10.8)
[2019-02-13] MEDS: CLOPIDOGREL 75 MG TAB NGT ×2 (09:00→13:21)
[2019-02-13] MEDS: LACTOBACILLUS RHAMNOSUS CAP GTB ×3 (09:00→21:11)
[2019-02-13] MEDS: RIFAXIMIN 200 MG TAB PO ×3 (09:00→21:10)
[2019-02-13] MEDS: ASPIRIN 81 MG TAB NGT ×3 (09:00→13:21)
[2019-02-13] MEDS: SEVELAMER CARBONATE 2.4 GM PKT GTB ×3 (09:05→17:26)
[2019-02-13 09:07] LABS: ALBUMIN 3.3 g/dl (3.3-4.9); ANION GAP 9 (5-13); BLOOD UREA NITROGEN 50 mg/dl (7-20); CALCIUM 10.8 mg/dl (8.4-10.2); CARBON DIOXIDE 26 mmol/L (21-31); CHLORIDE 98 mmol/L (97-110); GLUCOSE 140 mg/dl (70-220); MAGNESIUM 2.5 mg/dl (1.7-2.5); PHOSPHORUS 6.5 mg/dl (2.5-4.9); POTASSIUM 4.9 mmol/L (3.5-5.1); SODIUM 133 mmol/L (135-144)
[2019-02-13] MEDS: ZINC SULFATE 220 MG CAP NGT (13:16)
[2019-02-13] MEDS: MULTIVITAMINS 30 ML CUP NGT (13:16)
[2019-02-13] MEDS: FOLIC ACID 1 MG TAB NGT (13:18)
[2019-02-13] MEDS: ASCORBIC ACID 500 MG TAB NGT (13:18)
[2019-02-13] MEDS: EPOETIN ALFA-EPBX (ESRD) 10,000 UNIT/ML VIAL SC (17:28)
[2019-02-13] MEDS: IPRATROPIUM (NEB) 0.5 MG/2.5 ML AMP HHN (20:18)
[2019-02-13] MEDS: ALBUTEROL 0.083% (NEB) 2.5 MG/3 ML AMP HHN (20:18)
[2019-02-13] MEDS: ATORVASTATIN 80 MG TAB PO (21:10)
[2019-02-14] MEDS: ALBUTEROL 0.083% (NEB) 2.5 MG/3 ML AMP HHN ×4 (01:40→19:34)
[2019-02-14] MEDS: LANSOPRAZOLE 30 MG CAP GTB (06:01)
[2019-02-14] MEDS: HEPARIN 5,000 UNIT/1 ML VIAL SC ×3 (06:06→21:55)
[2019-02-14] MEDS: IPRATROPIUM (NEB) 0.5 MG/2.5 ML AMP HHN ×3 (08:00→19:34)
[2019-02-14 08:17] LABS: ADD MAN DIFF? NO
[2019-02-14 08:22] LABS: WHITE BLOOD COUNT 11.9 10^3/ul (4.8-10.8)
[2019-02-14 08:22] LABS: BASOPHIL # 0.1 10^3/ul (0.0-0.1); BASOPHILS % 0.7 % (0.0-2.0); EOSINOPHILS # 0.3 10^3/ul (0.0-0.5); EOSINOPHILS % 2.2 % (0.0-7.0); HEMATOCRIT 28.1 % (37.0-47.0); HEMOGLOBIN 8.6 g/dl (12.0-16.0); LYMPHOCYTES # 2.7 10^3/ul (0.8-2.9); MEAN CORPUSCULAR HEMOGLOBIN 29.5 pg (29.0-33.0); MEAN CORPUSCULAR HGB CONC 30.6 g/dl (32.0-37.0); MEAN CORPUSCULAR VOLUME 96.2 fl (82.0-101.0); MEAN PLATELET VOLUME 12.2 fl (7.4-10.4); MONOCYTE # 0.9 10^3/ul (0.3-0.9); MONOCYTES % 7.6 % (0.0-11.0); NEUTROPHIL # 7.7 10^3/ul (1.6-7.5); NEUTROPHILS % 64.5 % (39.0-77.0); PLATELET COUNT 211 10^3/UL (140-415); RED BLOOD COUNT 2.92 10^6/ul (4.20-5.40)
[2019-02-14 08:54] LABS: ALBUMIN 3.3 g/dl (3.3-4.9); ANION GAP 10 (5-13); BLOOD UREA NITROGEN 40 mg/dl (7-20); CALCIUM 10.5 mg/dl (8.4-10.2); CARBON DIOXIDE 28 mmol/L (21-31); CHLORIDE 98 mmol/L (97-110); CREATININE 2.52 mg/dl (0.44-1.00); GLUCOSE 125 mg/dl (70-220); MAGNESIUM 2.4 mg/dl (1.7-2.5); PHOSPHORUS 5.9 mg/dl (2.5-4.9); POTASSIUM 3.3 mmol/L (3.5-5.1); SODIUM 136 mmol/L (135-144)
[2019-02-14] MEDS: ASCORBIC ACID 500 MG TAB NGT (10:28)
[2019-02-14] MEDS: POTASSIUM CHLORIDE 20 MEQ POWDER FOR ORAL SOLN GTB (10:28)
[2019-02-14] MEDS: LACTOBACILLUS RHAMNOSUS CAP GTB ×3 (10:28→21:47)
[2019-02-14] MEDS: SEVELAMER CARBONATE 2.4 GM PKT GTB ×3 (10:28→18:27)
[2019-02-14] MEDS: ASPIRIN 81 MG TAB NGT (10:28)
[2019-02-14] MEDS: ZINC SULFATE 220 MG CAP NGT (10:28)
[2019-02-14] MEDS: FOLIC ACID 1 MG TAB NGT (10:29)
[2019-02-14] MEDS: CLOPIDOGREL 75 MG TAB NGT (10:29)
[2019-02-14] MEDS: RIFAXIMIN 200 MG TAB PO ×3 (10:29→21:47)
[2019-02-14] MEDS: MULTIVIT/CA CARB/B CMPLX/FA TAB GTB (10:29)
[2019-02-14] MEDS: ATORVASTATIN 80 MG TAB PO (21:47)
[2019-02-15] MEDS: ALBUTEROL 0.083% (NEB) 2.5 MG/3 ML AMP HHN ×4 (01:28→19:53)
[2019-02-15] MEDS: LANSOPRAZOLE 30 MG CAP GTB (05:30)
[2019-02-15 07:04] LABS: ADD MAN DIFF? NO
[2019-02-15 07:08] LABS: WHITE BLOOD COUNT 10.5 10^3/ul (4.8-10.8)
[2019-02-15 07:09] LABS: BASOPHIL # 0.1 10^3/ul (0.0-0.1); BASOPHILS % 0.7 % (0.0-2.0); EOSINOPHILS # 0.3 10^3/ul (0.0-0.5); EOSINOPHILS % 2.7 % (0.0-7.0); HEMATOCRIT 27.9 % (37.0-47.0); HEMOGLOBIN 8.6 g/dl (12.0-16.0); LYMPHOCYTES # 2.5 10^3/ul (0.8-2.9); LYMPHOCYTES % 23.9 % (15.0-51.0); MEAN CORPUSCULAR HEMOGLOBIN 29.1 pg (29.0-33.0); MEAN CORPUSCULAR HGB CONC 30.8 g/dl (32.0-37.0); MEAN CORPUSCULAR VOLUME 94.3 fl (82.0-101.0); MEAN PLATELET VOLUME 12.3 fl (7.4-10.4); MONOCYTE # 0.9 10^3/ul (0.3-0.9); MONOCYTES % 8.5 % (0.0-11.0); NEUTROPHIL # 6.5 10^3/ul (1.6-7.5); NEUTROPHILS % 62.2 % (39.0-77.0); PLATELET COUNT 202 10^3/UL (140-415); RED BLOOD COUNT 2.96 10^6/ul (4.20-5.40); RED CELL DISTRIBUTION WIDTH 17.7 % (11.5-14.5)
[2019-02-15 07:31] LABS: ALBUMIN 3.1 g/dl (3.3-4.9); ANION GAP 9 (5-13); BLOOD UREA NITROGEN 50 mg/dl (7-20); CALCIUM 10.6 mg/dl (8.4-10.2); CARBON DIOXIDE 27 mmol/L (21-31); CHLORIDE 98 mmol/L (97-110); CREATININE 2.66 mg/dl (0.44-1.00); GLUCOSE 108 mg/dl (70-220); MAGNESIUM 2.4 mg/dl (1.7-2.5); PHOSPHORUS 6.5 mg/dl (2.5-4.9); SODIUM 134 mmol/L (135-144)
[2019-02-15] MEDS: IPRATROPIUM (NEB) 0.5 MG/2.5 ML AMP HHN ×3 (07:54→19:53)
[2019-02-15] MEDS: CLOPIDOGREL 75 MG TAB NGT (09:43)
[2019-02-15] MEDS: RIFAXIMIN 200 MG TAB PO ×3 (09:43→23:06)
[2019-02-15] MEDS: ASCORBIC ACID 500 MG TAB NGT (09:43)
[2019-02-15] MEDS: ASPIRIN 81 MG TAB NGT (09:44)
[2019-02-15] MEDS: LACTOBACILLUS RHAMNOSUS CAP GTB ×3 (09:44→21:00)
[2019-02-15] MEDS: FOLIC ACID 1 MG TAB NGT (09:44)
[2019-02-15] MEDS: ZINC SULFATE 220 MG CAP NGT (09:44)
[2019-02-15] MEDS: MULTIVIT/CA CARB/B CMPLX/FA TAB GTB (09:44)
[2019-02-15] MEDS: SEVELAMER CARBONATE 2.4 GM PKT GTB ×3 (09:44→17:33)
[2019-02-15] MEDS: morphine LIQ (10 MG/5 ML) CUP GTB (09:45)
[2019-02-15] MEDS: HEPARIN 5,000 UNIT/1 ML VIAL SC ×2 (09:53→23:07)
[2019-02-15] MEDS: ONDANSETRON 4 MG INJ IV (11:21)
[2019-02-15] MEDS: ALTEPLASE (CATHFLO) 2 MG INJ CATHETER ×2 (12:19→12:20)
[2019-02-15] MEDS: ATORVASTATIN 80 MG TAB PO (21:00)
[2019-02-15] MEDS: HEPARIN 1000 UNITS/ML 10 ML INJ CATHETER (22:35)
[2019-02-16] MEDS: oxyCODONE 5 MG TAB PO (01:41)
[2019-02-16] MEDS: ALBUTEROL 0.083% (NEB) 2.5 MG/3 ML AMP HHN ×4 (02:01→20:45)
[2019-02-16] MEDS: LANSOPRAZOLE 30 MG CAP GTB (05:35)
[2019-02-16] MEDS: IPRATROPIUM (NEB) 0.5 MG/2.5 ML AMP HHN ×3 (07:44→20:45)
[2019-02-16 07:49] LABS: ADD MAN DIFF? NO
[2019-02-16 07:50] LABS: WHITE BLOOD COUNT 8.9 10^3/ul (4.8-10.8)
[2019-02-16 07:50] LABS: BASOPHIL # 0.1 10^3/ul (0.0-0.1); BASOPHILS % 0.9 % (0.0-2.0); EOSINOPHILS # 0.3 10^3/ul (0.0-0.5); EOSINOPHILS % 2.9 % (0.0-7.0); HEMATOCRIT 29.5 % (37.0-47.0); LYMPHOCYTES # 2.2 10^3/ul (0.8-2.9); LYMPHOCYTES % 25.2 % (15.0-51.0); MEAN CORPUSCULAR HEMOGLOBIN 29.8 pg (29.0-33.0); MEAN CORPUSCULAR HGB CONC 30.5 g/dl (32.0-37.0); MEAN CORPUSCULAR VOLUME 97.7 fl (82.0-101.0); MEAN PLATELET VOLUME 11.9 fl (7.4-10.4); MONOCYTE # 0.8 10^3/ul (0.3-0.9); MONOCYTES % 8.8 % (0.0-11.0); NEUTROPHIL # 5.3 10^3/ul (1.6-7.5); NEUTROPHILS % 60.3 % (39.0-77.0); PLATELET COUNT 182 10^3/UL (140-415); RED BLOOD COUNT 3.02 10^6/ul (4.20-5.40); RED CELL DISTRIBUTION WIDTH 18.4 % (11.5-14.5)
[2019-02-16 08:13] LABS: ALBUMIN 3.2 g/dl (3.3-4.9); ANION GAP 7 (5-13); BLOOD UREA NITROGEN 29 mg/dl (7-20); CALCIUM 10.2 mg/dl (8.4-10.2); CARBON DIOXIDE 28 mmol/L (21-31); CHLORIDE 102 mmol/L (97-110); CREATININE 1.91 mg/dl (0.44-1.00); GLUCOSE 99 mg/dl (70-220); MAGNESIUM 2.2 mg/dl (1.7-2.5); PHOSPHORUS 4.5 mg/dl (2.5-4.9); POTASSIUM 4.2 mmol/L (3.5-5.1); SODIUM 137 mmol/L (135-144)
[2019-02-16] MEDS: FOLIC ACID 1 MG TAB NGT (08:23)
[2019-02-16] MEDS: MULTIVIT/CA CARB/B CMPLX/FA TAB GTB (08:23)
[2019-02-16] MEDS: RIFAXIMIN 200 MG TAB PO ×3 (08:23→21:53)
[2019-02-16] MEDS: ASCORBIC ACID 500 MG TAB NGT (08:23)
[2019-02-16] MEDS: SEVELAMER CARBONATE 2.4 GM PKT GTB ×3 (08:23→18:15)
[2019-02-16] MEDS: LACTOBACILLUS RHAMNOSUS CAP GTB ×3 (08:23→21:53)
[2019-02-16] MEDS: CLOPIDOGREL 75 MG TAB NGT (08:23)
[2019-02-16] MEDS: ZINC SULFATE 220 MG CAP NGT (08:23)
[2019-02-16] MEDS: ASPIRIN 81 MG TAB NGT (08:24)
[2019-02-16] MEDS: HEPARIN 5,000 UNIT/1 ML VIAL SC ×2 (08:27→22:06)
[2019-02-16] MEDS: EPOETIN ALFA-EPBX (ESRD) 10,000 UNIT/ML VIAL SC (18:38)
[2019-02-16] MEDS: ATORVASTATIN 80 MG TAB PO (21:53)
[2019-02-17] MEDS: ALBUTEROL 0.083% (NEB) 2.5 MG/3 ML AMP HHN ×4 (02:18→19:35)
[2019-02-17] MEDS: LANSOPRAZOLE 30 MG CAP GTB (05:26)
[2019-02-17 06:17] LABS: ADD MAN DIFF? NO
[2019-02-17 06:22] LABS: BASOPHIL # 0.1 10^3/ul (0.0-0.1); BASOPHILS % 0.7 % (0.0-2.0); EOSINOPHILS # 0.2 10^3/ul (0.0-0.5); EOSINOPHILS % 2.9 % (0.0-7.0); HEMATOCRIT 29.5 % (37.0-47.0); LYMPHOCYTES # 2.2 10^3/ul (0.8-2.9); LYMPHOCYTES % 27.1 % (15.0-51.0); MEAN CORPUSCULAR HEMOGLOBIN 29.5 pg (29.0-33.0); MEAN CORPUSCULAR HGB CONC 30.5 g/dl (32.0-37.0); MEAN CORPUSCULAR VOLUME 96.7 fl (82.0-101.0); MEAN PLATELET VOLUME 12.1 fl (7.4-10.4); MONOCYTE # 0.7 10^3/ul (0.3-0.9); MONOCYTES % 8.9 % (0.0-11.0); NEUTROPHIL # 4.9 10^3/ul (1.6-7.5); NEUTROPHILS % 58.8 % (39.0-77.0); PLATELET COUNT 168 10^3/UL (140-415); RED BLOOD COUNT 3.05 10^6/ul (4.20-5.40); RED CELL DISTRIBUTION WIDTH 17.8 % (11.5-14.5)
[2019-02-17 06:22] LABS: WHITE BLOOD COUNT 8.2 10^3/ul (4.8-10.8)
[2019-02-17 06:42] LABS: POSITIVE DIFF @See below
[2019-02-17 07:23] LABS: PHOSPHORUS 5.6 mg/dl (2.5-4.9)
[2019-02-17] MEDS: IPRATROPIUM (NEB) 0.5 MG/2.5 ML AMP HHN ×3 (08:00→19:36)
[2019-02-17 08:24] LABS: ALBUMIN 3.3 g/dl (3.3-4.9); ANION GAP 11 (5-13); BLOOD UREA NITROGEN 42 mg/dl (7-20); CALCIUM 10.5 mg/dl (8.4-10.2); CARBON DIOXIDE 24 mmol/L (21-31); CHLORIDE 101 mmol/L (97-110); CREATININE 2.45 mg/dl (0.44-1.00); GLUCOSE 120 mg/dl (70-220); MAGNESIUM 2.3 mg/dl (1.7-2.5); PHOSPHORUS 5.4 mg/dl (2.5-4.9); SODIUM 136 mmol/L (135-144)
[2019-02-17] MEDS: ASCORBIC ACID 500 MG TAB NGT (08:50)
[2019-02-17] MEDS: LACTOBACILLUS RHAMNOSUS CAP GTB ×3 (08:50→20:47)
[2019-02-17] MEDS: ASPIRIN 81 MG TAB NGT (08:50)
[2019-02-17] MEDS: RIFAXIMIN 200 MG TAB PO ×3 (08:50→20:54)
[2019-02-17] MEDS: MULTIVIT/CA CARB/B CMPLX/FA TAB GTB (08:51)
[2019-02-17] MEDS: ZINC SULFATE 220 MG CAP NGT (08:51)
[2019-02-17] MEDS: FOLIC ACID 1 MG TAB NGT (08:51)
[2019-02-17] MEDS: SEVELAMER CARBONATE 2.4 GM PKT GTB ×3 (08:51→17:13)
[2019-02-17] MEDS: CLOPIDOGREL 75 MG TAB NGT (08:51)
[2019-02-17] MEDS: HEPARIN 5,000 UNIT/1 ML VIAL SC ×2 (08:58→21:16)
[2019-02-17] MEDS: oxyCODONE 5 MG TAB PO (13:09)
[2019-02-17] MEDS: ATORVASTATIN 80 MG TAB PO (20:48)
[2019-02-18] MEDS: ALBUTEROL 0.083% (NEB) 2.5 MG/3 ML AMP HHN ×4 (02:02→19:47)
[2019-02-18] MEDS: LANSOPRAZOLE 30 MG CAP GTB (05:52)
[2019-02-18] MEDS: IPRATROPIUM (NEB) 0.5 MG/2.5 ML AMP HHN ×3 (08:28→19:47)
[2019-02-18 08:30] LABS: ADD MAN DIFF? NO
[2019-02-18 08:35] LABS: WHITE BLOOD COUNT 9.2 10^3/ul (4.8-10.8)
[2019-02-18 08:35] LABS: BASOPHIL # 0.1 10^3/ul (0.0-0.1); BASOPHILS % 0.9 % (0.0-2.0); EOSINOPHILS # 0.3 10^3/ul (0.0-0.5); HEMATOCRIT 30.7 % (37.0-47.0); HEMOGLOBIN 9.3 g/dl (12.0-16.0); LYMPHOCYTES # 2.8 10^3/ul (0.8-2.9); LYMPHOCYTES % 30.1 % (15.0-51.0); MEAN CORPUSCULAR HEMOGLOBIN 29.1 pg (29.0-33.0); MEAN CORPUSCULAR HGB CONC 30.3 g/dl (32.0-37.0); MEAN CORPUSCULAR VOLUME 95.9 fl (82.0-101.0); MEAN PLATELET VOLUME 12.5 fl (7.4-10.4); MONOCYTE # 0.7 10^3/ul (0.3-0.9); NEUTROPHIL # 5.2 10^3/ul (1.6-7.5); NEUTROPHILS % 56.7 % (39.0-77.0); PLATELET COUNT 178 10^3/UL (140-415); RED CELL DISTRIBUTION WIDTH 17.2 % (11.5-14.5)
[2019-02-18] MEDS: SEVELAMER CARBONATE 2.4 GM PKT GTB ×3 (08:50→18:02)
[2019-02-18] MEDS: RIFAXIMIN 200 MG TAB PO ×3 (08:51→20:54)
[2019-02-18] MEDS: ZINC SULFATE 220 MG CAP NGT (08:51)
[2019-02-18] MEDS: LACTOBACILLUS RHAMNOSUS CAP GTB ×3 (08:51→20:54)
[2019-02-18] MEDS: MULTIVIT/CA CARB/B CMPLX/FA TAB GTB (08:51)
[2019-02-18] MEDS: HEPARIN 5,000 UNIT/1 ML VIAL SC ×2 (08:52→21:09)
[2019-02-18] MEDS: FOLIC ACID 1 MG TAB NGT (08:53)
[2019-02-18] MEDS: ASCORBIC ACID 500 MG TAB NGT (08:53)
[2019-02-18] MEDS: ASPIRIN 81 MG TAB NGT (08:53)
[2019-02-18] MEDS: CLOPIDOGREL 75 MG TAB NGT (08:54)
[2019-02-18 09:01] LABS: ANION GAP 9 (5-13); BLOOD UREA NITROGEN 51 mg/dl (7-20); CALCIUM 10.3 mg/dl (8.4-10.2); CARBON DIOXIDE 28 mmol/L (21-31); CHLORIDE 99 mmol/L (97-110); CREATININE 2.35 mg/dl (0.44-1.00); Estimated GFR 23 mL/min (>60); GLUCOSE 104 mg/dl (70-220); MAGNESIUM 2.2 mg/dl (1.7-2.5); PHOSPHORUS 5.8 mg/dl (2.5-4.9); POTASSIUM 4.1 mmol/L (3.5-5.1); SODIUM 136 mmol/L (135-144)
[2019-02-18] MEDS: EPOETIN ALFA-EPBX (ESRD) 10,000 UNIT/ML VIAL SC (18:05)
[2019-02-18] MEDS: ATORVASTATIN 80 MG TAB PO (20:54)
[2019-02-18] MEDS: oxyCODONE 5 MG TAB PO (23:19)
[2019-02-19] MEDS: ALBUTEROL 0.083% (NEB) 2.5 MG/3 ML AMP HHN ×4 (01:08→20:07)
[2019-02-19] MEDS: LANSOPRAZOLE 30 MG CAP GTB (05:51)
[2019-02-19] MEDS: IPRATROPIUM (NEB) 0.5 MG/2.5 ML AMP HHN ×3 (07:34→20:07)
[2019-02-19 08:28] LABS: ADD MAN DIFF? NO
[2019-02-19 08:38] LABS: BASOPHIL # 0.1 10^3/ul (0.0-0.1); BASOPHILS % 0.7 % (0.0-2.0); EOSINOPHILS # 0.3 10^3/ul (0.0-0.5); EOSINOPHILS % 3.3 % (0.0-7.0); HEMATOCRIT 30.3 % (37.0-47.0); HEMOGLOBIN 9.1 g/dl (12.0-16.0); LYMPHOCYTES # 2.6 10^3/ul (0.8-2.9); LYMPHOCYTES % 31.8 % (15.0-51.0); MEAN CORPUSCULAR HEMOGLOBIN 28.9 pg (29.0-33.0); MEAN CORPUSCULAR VOLUME 96.2 fl (82.0-101.0); MEAN PLATELET VOLUME 12.8 fl (7.4-10.4); MONOCYTE # 0.8 10^3/ul (0.3-0.9); MONOCYTES % 9.7 % (0.0-11.0); NEUTROPHIL # 4.4 10^3/ul (1.6-7.5); NEUTROPHILS % 53.5 % (39.0-77.0); PLATELET COUNT 160 10^3/UL (140-415); RED BLOOD COUNT 3.15 10^6/ul (4.20-5.40); RED CELL DISTRIBUTION WIDTH 17.1 % (11.5-14.5)
[2019-02-19 08:38] LABS: WHITE BLOOD COUNT 8.3 10^3/ul (4.8-10.8)
[2019-02-19] MEDS: SEVELAMER CARBONATE 2.4 GM PKT GTB ×3 (08:50→17:49)
[2019-02-19] MEDS: CLOPIDOGREL 75 MG TAB NGT (08:50)
[2019-02-19] MEDS: ASCORBIC ACID 500 MG TAB NGT (08:50)
[2019-02-19] MEDS: MULTIVIT/CA CARB/B CMPLX/FA TAB GTB (08:50)
[2019-02-19] MEDS: LACTOBACILLUS RHAMNOSUS CAP GTB ×3 (08:51→21:57)
[2019-02-19] MEDS: ZINC SULFATE 220 MG CAP NGT (08:51)
[2019-02-19] MEDS: RIFAXIMIN 200 MG TAB PO ×3 (08:51→21:56)
[2019-02-19] MEDS: ASPIRIN 81 MG TAB NGT (08:52)
[2019-02-19] MEDS: FOLIC ACID 1 MG TAB NGT (08:52)
[2019-02-19 09:01] LABS: ANION GAP 8 (5-13); BLOOD UREA NITROGEN 54 mg/dl (7-20); CALCIUM 10.6 mg/dl (8.4-10.2); CARBON DIOXIDE 27 mmol/L (21-31); CHLORIDE 101 mmol/L (97-110); CREATININE 2.03 mg/dl (0.44-1.00); Estimated GFR 27 mL/min (>60); GLUCOSE 104 mg/dl (70-220); MAGNESIUM 2.3 mg/dl (1.7-2.5); PHOSPHORUS 6.2 mg/dl (2.5-4.9); POTASSIUM 3.7 mmol/L (3.5-5.1); SODIUM 136 mmol/L (135-144)
[2019-02-19] MEDS: HEPARIN 5,000 UNIT/1 ML VIAL SC ×2 (10:09→22:57)
[2019-02-19] MEDS: ATORVASTATIN 80 MG TAB PO (21:56)
[2019-02-20] MEDS: ALBUTEROL 0.083% (NEB) 2.5 MG/3 ML AMP HHN ×4 (01:44→19:53)
[2019-02-20] MEDS: LANSOPRAZOLE 30 MG CAP GTB (05:39)
[2019-02-20] MEDS: IPRATROPIUM (NEB) 0.5 MG/2.5 ML AMP HHN ×3 (07:56→19:53)
[2019-02-20 08:09] LABS: ADD MAN DIFF? NO
[2019-02-20] MEDS: SEVELAMER CARBONATE 2.4 GM PKT GTB ×3 (08:22→17:35)
[2019-02-20] MEDS: ZINC SULFATE 220 MG CAP NGT (08:23)
[2019-02-20] MEDS: MULTIVIT/CA CARB/B CMPLX/FA TAB GTB (08:23)
[2019-02-20] MEDS: LACTOBACILLUS RHAMNOSUS CAP GTB ×3 (08:23→21:44)
[2019-02-20] MEDS: ASPIRIN 81 MG TAB NGT (08:23)
[2019-02-20] MEDS: RIFAXIMIN 200 MG TAB PO ×3 (08:23→21:44)
[2019-02-20] MEDS: FOLIC ACID 1 MG TAB NGT (08:23)
[2019-02-20] MEDS: ASCORBIC ACID 500 MG TAB NGT (08:23)
[2019-02-20] MEDS: CLOPIDOGREL 75 MG TAB NGT (08:23)
[2019-02-20 08:25] LABS: WHITE BLOOD COUNT 8.4 10^3/ul (4.8-10.8)
[2019-02-20 08:25] LABS: BASOPHIL # 0.1 10^3/ul (0.0-0.1); BASOPHILS % 0.7 % (0.0-2.0); EOSINOPHILS # 0.3 10^3/ul (0.0-0.5); EOSINOPHILS % 3.5 % (0.0-7.0); HEMATOCRIT 30.3 % (37.0-47.0); HEMOGLOBIN 9.3 g/dl (12.0-16.0); LYMPHOCYTES # 2.9 10^3/ul (0.8-2.9); LYMPHOCYTES % 34.3 % (15.0-51.0); MEAN CORPUSCULAR HEMOGLOBIN 29.6 pg (29.0-33.0); MEAN CORPUSCULAR HGB CONC 30.7 g/dl (32.0-37.0); MEAN CORPUSCULAR VOLUME 96.5 fl (82.0-101.0); MEAN PLATELET VOLUME 12.4 fl (7.4-10.4); MONOCYTE # 0.7 10^3/ul (0.3-0.9); MONOCYTES % 8.8 % (0.0-11.0); NEUTROPHIL # 4.4 10^3/ul (1.6-7.5); NEUTROPHILS % 51.9 % (39.0-77.0); PLATELET COUNT 169 10^3/UL (140-415); RED BLOOD COUNT 3.14 10^6/ul (4.20-5.40); RED CELL DISTRIBUTION WIDTH 17.1 % (11.5-14.5)
[2019-02-20 08:33] LABS: ANION GAP 9 (5-13); BLOOD UREA NITROGEN 60 mg/dl (7-20); CALCIUM 10.2 mg/dl (8.4-10.2); CARBON DIOXIDE 28 mmol/L (21-31); CHLORIDE 100 mmol/L (97-110); CREATININE 1.69 mg/dl (0.44-1.00); Estimated GFR 34 mL/min (>60); GLUCOSE 104 mg/dl (70-220); MAGNESIUM 2.2 mg/dl (1.7-2.5); POTASSIUM 4.1 mmol/L (3.5-5.1); SODIUM 137 mmol/L (135-144)
[2019-02-20] MEDS: HEPARIN 5,000 UNIT/1 ML VIAL SC ×2 (10:48→21:57)
[2019-02-20] MEDS: EPOETIN ALFA-EPBX (ESRD) 10,000 UNIT/ML VIAL SC (17:35)
[2019-02-20] MEDS: ATORVASTATIN 80 MG TAB PO (21:44)
[2019-02-21] MEDS: ALBUTEROL 0.083% (NEB) 2.5 MG/3 ML AMP HHN ×4 (02:14→19:53)
[2019-02-21] MEDS: LANSOPRAZOLE 30 MG CAP GTB (05:53)
[2019-02-21] MEDS: oxyCODONE 5 MG TAB PO (06:17)
[2019-02-21] MEDS: IPRATROPIUM (NEB) 0.5 MG/2.5 ML AMP HHN ×3 (08:00→19:53)
[2019-02-21] MEDS: FOLIC ACID 1 MG TAB NGT (08:17)
[2019-02-21] MEDS: ZINC SULFATE 220 MG CAP NGT (08:17)
[2019-02-21] MEDS: LACTOBACILLUS RHAMNOSUS CAP GTB ×3 (08:17→21:48)
[2019-02-21] MEDS: CLOPIDOGREL 75 MG TAB NGT (08:17)
[2019-02-21] MEDS: MULTIVIT/CA CARB/B CMPLX/FA TAB GTB (08:17)
[2019-02-21] MEDS: RIFAXIMIN 200 MG TAB PO ×3 (08:17→21:48)
[2019-02-21] MEDS: SEVELAMER CARBONATE 2.4 GM PKT GTB ×3 (08:17→17:44)
[2019-02-21] MEDS: ASCORBIC ACID 500 MG TAB NGT (08:17)
[2019-02-21] MEDS: ASPIRIN 81 MG TAB NGT (08:17)
[2019-02-21] MEDS: HEPARIN 5,000 UNIT/1 ML VIAL SC ×2 (08:19→21:59)
[2019-02-21 08:22] LABS: ADD MAN DIFF? NO
[2019-02-21 08:38] LABS: WHITE BLOOD COUNT 8.1 10^3/ul (4.8-10.8)
[2019-02-21 08:38] LABS: BASOPHIL # 0.1 10^3/ul (0.0-0.1); BASOPHILS % 0.7 % (0.0-2.0); EOSINOPHILS # 0.2 10^3/ul (0.0-0.5); EOSINOPHILS % 2.6 % (0.0-7.0); HEMATOCRIT 31.9 % (37.0-47.0); HEMOGLOBIN 9.7 g/dl (12.0-16.0); LYMPHOCYTES # 2.5 10^3/ul (0.8-2.9); LYMPHOCYTES % 31.4 % (15.0-51.0); MEAN CORPUSCULAR HGB CONC 30.4 g/dl (32.0-37.0); MEAN CORPUSCULAR VOLUME 95.5 fl (82.0-101.0); MEAN PLATELET VOLUME 12.4 fl (7.4-10.4); MONOCYTE # 0.7 10^3/ul (0.3-0.9); MONOCYTES % 8.6 % (0.0-11.0); NEUTROPHIL # 4.5 10^3/ul (1.6-7.5); NEUTROPHILS % 56.1 % (39.0-77.0); PLATELET COUNT 164 10^3/UL (140-415); RED BLOOD COUNT 3.34 10^6/ul (4.20-5.40); RED CELL DISTRIBUTION WIDTH 17.1 % (11.5-14.5)
[2019-02-21 09:03] LABS: ANION GAP 10 (5-13); BLOOD UREA NITROGEN 58 mg/dl (7-20); CARBON DIOXIDE 28 mmol/L (21-31); CHLORIDE 100 mmol/L (97-110); Estimated GFR 39 mL/min (>60); GLUCOSE 107 mg/dl (70-220); PHOSPHORUS 5.9 mg/dl (2.5-4.9); POTASSIUM 3.9 mmol/L (3.5-5.1); SODIUM 138 mmol/L (135-144)
[2019-02-21] MEDS: ATORVASTATIN 80 MG TAB PO (21:48)
[2019-02-22] MEDS: ALBUTEROL 0.083% (NEB) 2.5 MG/3 ML AMP HHN ×4 (01:21→19:57)
[2019-02-22] MEDS: LANSOPRAZOLE 30 MG CAP GTB (06:06)
[2019-02-22 06:39] LABS: ADD MAN DIFF? NO
[2019-02-22 06:45] LABS: WHITE BLOOD COUNT 7.6 10^3/ul (4.8-10.8)
[2019-02-22 06:45] LABS: BASOPHIL # 0.1 10^3/ul (0.0-0.1); BASOPHILS % 0.8 % (0.0-2.0); EOSINOPHILS # 0.3 10^3/ul (0.0-0.5); EOSINOPHILS % 3.7 % (0.0-7.0); HEMATOCRIT 32.5 % (37.0-47.0); HEMOGLOBIN 9.8 g/dl (12.0-16.0); LYMPHOCYTES # 2.8 10^3/ul (0.8-2.9); MEAN CORPUSCULAR HGB CONC 30.2 g/dl (32.0-37.0); MEAN CORPUSCULAR VOLUME 96.2 fl (82.0-101.0); MEAN PLATELET VOLUME 12.3 fl (7.4-10.4); MONOCYTE # 0.8 10^3/ul (0.3-0.9); MONOCYTES % 9.8 % (0.0-11.0); NEUTROPHIL # 3.7 10^3/ul (1.6-7.5); NEUTROPHILS % 48.2 % (39.0-77.0); PLATELET COUNT 179 10^3/UL (140-415); RED BLOOD COUNT 3.38 10^6/ul (4.20-5.40); RED CELL DISTRIBUTION WIDTH 17.1 % (11.5-14.5)
[2019-02-22 07:17] LABS: ANION GAP 9 (5-13); BLOOD UREA NITROGEN 57 mg/dl (7-20); CALCIUM 10.1 mg/dl (8.4-10.2); CARBON DIOXIDE 29 mmol/L (21-31); CHLORIDE 101 mmol/L (97-110); CREATININE 1.41 mg/dl (0.44-1.00); Estimated GFR 42 mL/min (>60); GLUCOSE 113 mg/dl (70-220); PHOSPHORUS 6.4 mg/dl (2.5-4.9); POTASSIUM 3.8 mmol/L (3.5-5.1); SODIUM 139 mmol/L (135-144)
[2019-02-22] MEDS: IPRATROPIUM (NEB) 0.5 MG/2.5 ML AMP HHN ×3 (07:54→19:57)
[2019-02-22] MEDS: LACTOBACILLUS RHAMNOSUS CAP GTB ×3 (08:07→21:45)
[2019-02-22] MEDS: ZINC SULFATE 220 MG CAP NGT (08:07)
[2019-02-22] MEDS: SEVELAMER CARBONATE 2.4 GM PKT GTB ×3 (08:07→17:34)
[2019-02-22] MEDS: FOLIC ACID 1 MG TAB NGT (08:07)
[2019-02-22] MEDS: ASCORBIC ACID 500 MG TAB NGT (08:07)
[2019-02-22] MEDS: ASPIRIN 81 MG TAB NGT (08:07)
[2019-02-22] MEDS: RIFAXIMIN 200 MG TAB PO ×3 (08:07→21:45)
[2019-02-22] MEDS: CLOPIDOGREL 75 MG TAB NGT (08:07)
[2019-02-22] MEDS: MULTIVIT/CA CARB/B CMPLX/FA TAB GTB (08:07)
[2019-02-22] MEDS: HEPARIN 5,000 UNIT/1 ML VIAL SC ×2 (08:10→21:50)
[2019-02-22] MEDS: hydrALAzine 20 MG INJ IV (15:50)
[2019-02-22] MEDS: ATORVASTATIN 80 MG TAB PO (21:46)
[2019-02-23] MEDS: ALBUTEROL 0.083% (NEB) 2.5 MG/3 ML AMP HHN ×4 (01:13→21:49)
[2019-02-23] MEDS: LANSOPRAZOLE 30 MG CAP GTB (06:09)
[2019-02-23 06:52] LABS: ADD MAN DIFF? NO
[2019-02-23 06:57] LABS: BASOPHIL # 0.1 10^3/ul (0.0-0.1); BASOPHILS % 1.1 % (0.0-2.0); EOSINOPHILS # 0.3 10^3/ul (0.0-0.5); EOSINOPHILS % 4.3 % (0.0-7.0); HEMATOCRIT 31.8 % (37.0-47.0); HEMOGLOBIN 9.6 g/dl (12.0-16.0); LYMPHOCYTES # 2.6 10^3/ul (0.8-2.9); LYMPHOCYTES % 40.5 % (15.0-51.0); MEAN CORPUSCULAR HEMOGLOBIN 29.1 pg (29.0-33.0); MEAN CORPUSCULAR HGB CONC 30.2 g/dl (32.0-37.0); MEAN CORPUSCULAR VOLUME 96.4 fl (82.0-101.0); MONOCYTE # 0.6 10^3/ul (0.3-0.9); MONOCYTES % 8.9 % (0.0-11.0); NEUTROPHIL # 2.9 10^3/ul (1.6-7.5); NEUTROPHILS % 44.6 % (39.0-77.0); PLATELET COUNT 178 10^3/UL (140-415); RED CELL DISTRIBUTION WIDTH 17.2 % (11.5-14.5)
[2019-02-23 06:57] LABS: WHITE BLOOD COUNT 6.4 10^3/ul (4.8-10.8)
[2019-02-23 08:12] LABS: ANION GAP 11 (5-13); BLOOD UREA NITROGEN 51 mg/dl (7-20); CALCIUM 9.9 mg/dl (8.4-10.2); CARBON DIOXIDE 28 mmol/L (21-31); CHLORIDE 101 mmol/L (97-110); CREATININE 1.28 mg/dl (0.44-1.00); Estimated GFR 46 mL/min (>60); GLUCOSE 91 mg/dl (70-220); MAGNESIUM 1.8 mg/dl (1.7-2.5); PHOSPHORUS 7.1 mg/dl (2.5-4.9); POTASSIUM 3.7 mmol/L (3.5-5.1); SODIUM 140 mmol/L (135-144)
[2019-02-23] MEDS: ZINC SULFATE 220 MG CAP NGT (09:03)
[2019-02-23] MEDS: LACTOBACILLUS RHAMNOSUS CAP GTB ×3 (09:03→21:21)
[2019-02-23] MEDS: ASPIRIN 81 MG TAB NGT (09:03)
[2019-02-23] MEDS: ASCORBIC ACID 500 MG TAB NGT (09:03)
[2019-02-23] MEDS: RIFAXIMIN 200 MG TAB PO ×3 (09:03→21:21)
[2019-02-23] MEDS: SEVELAMER CARBONATE 2.4 GM PKT GTB ×3 (09:03→17:01)
[2019-02-23] MEDS: MULTIVIT/CA CARB/B CMPLX/FA TAB GTB (09:03)
[2019-02-23] MEDS: CLOPIDOGREL 75 MG TAB NGT (09:03)
[2019-02-23] MEDS: FOLIC ACID 1 MG TAB NGT (09:03)
[2019-02-23] MEDS: HEPARIN 5,000 UNIT/1 ML VIAL SC ×2 (09:06→22:11)
[2019-02-23] MEDS: IPRATROPIUM (NEB) 0.5 MG/2.5 ML AMP HHN ×3 (09:32→21:49)
[2019-02-23] MEDS: BARIUM SULFATE 135 ML (E-Z HD) PO (10:47)
[2019-02-23] MEDS: EPOETIN ALFA-EPBX (ESRD) 10,000 UNIT/ML VIAL SC (17:03)
[2019-02-23] MEDS: ATORVASTATIN 80 MG TAB PO (21:21)
[2019-02-24] MEDS: ALBUTEROL 0.083% (NEB) 2.5 MG/3 ML AMP HHN ×4 (03:15→20:19)
[2019-02-24] MEDS: LANSOPRAZOLE 30 MG CAP GTB (05:39)
[2019-02-24] MEDS: IPRATROPIUM (NEB) 0.5 MG/2.5 ML AMP HHN ×3 (08:11→20:20)
[2019-02-24] MEDS: SEVELAMER CARBONATE 2.4 GM PKT GTB ×3 (08:44→17:53)
[2019-02-24] MEDS: ZINC SULFATE 220 MG CAP NGT (08:44)
[2019-02-24] MEDS: FOLIC ACID 1 MG TAB NGT (08:44)
[2019-02-24] MEDS: CLOPIDOGREL 75 MG TAB NGT (08:45)
[2019-02-24] MEDS: LACTOBACILLUS RHAMNOSUS CAP GTB ×3 (08:45→20:37)
[2019-02-24] MEDS: ASPIRIN 81 MG TAB NGT (08:45)
[2019-02-24] MEDS: RIFAXIMIN 200 MG TAB PO ×3 (08:45→20:37)
[2019-02-24] MEDS: MULTIVIT/CA CARB/B CMPLX/FA TAB GTB (08:45)
[2019-02-24] MEDS: ASCORBIC ACID 500 MG TAB NGT (08:46)
[2019-02-24 08:47] LABS: ADD MAN DIFF? NO
[2019-02-24 08:53] LABS: WHITE BLOOD COUNT 6.5 10^3/ul (4.8-10.8)
[2019-02-24 08:53] LABS: BASOPHIL # 0.1 10^3/ul (0.0-0.1); BASOPHILS % 1.1 % (0.0-2.0); EOSINOPHILS # 0.3 10^3/ul (0.0-0.5); EOSINOPHILS % 4.1 % (0.0-7.0); HEMOGLOBIN 9.6 g/dl (12.0-16.0); LYMPHOCYTES # 2.6 10^3/ul (0.8-2.9); LYMPHOCYTES % 39.1 % (15.0-51.0); MEAN CORPUSCULAR HEMOGLOBIN 28.8 pg (29.0-33.0); MEAN CORPUSCULAR VOLUME 96.1 fl (82.0-101.0); MEAN PLATELET VOLUME 11.9 fl (7.4-10.4); MONOCYTE # 0.6 10^3/ul (0.3-0.9); MONOCYTES % 9.3 % (0.0-11.0); NEUTROPHILS % 45.9 % (39.0-77.0); PLATELET COUNT 170 10^3/UL (140-415); RED BLOOD COUNT 3.33 10^6/ul (4.20-5.40); RED CELL DISTRIBUTION WIDTH 16.6 % (11.5-14.5)
[2019-02-24] MEDS: HEPARIN 5,000 UNIT/1 ML VIAL SC ×2 (09:04→22:36)
[2019-02-24 09:15] LABS: ALBUMIN 3.6 g/dl (3.3-4.9); ANION GAP 12 (5-13); BLOOD UREA NITROGEN 46 mg/dl (7-20); CALCIUM 9.9 mg/dl (8.4-10.2); CARBON DIOXIDE 26 mmol/L (21-31); CHLORIDE 101 mmol/L (97-110); CREATININE 1.22 mg/dl (0.44-1.00); GLUCOSE 83 mg/dl (70-220); MAGNESIUM 1.7 mg/dl (1.7-2.5); PHOSPHORUS 7.6 mg/dl (2.5-4.9); POTASSIUM 3.9 mmol/L (3.5-5.1); SODIUM 139 mmol/L (135-144)
[2019-02-24] MEDS: ATORVASTATIN 80 MG TAB PO (20:37)
[2019-02-25] MEDS: ALBUTEROL 0.083% (NEB) 2.5 MG/3 ML AMP HHN ×4 (02:21→20:10)
[2019-02-25] MEDS: LANSOPRAZOLE 30 MG CAP GTB (05:47)
[2019-02-25] MEDS: ASCORBIC ACID 500 MG TAB NGT (09:04)
[2019-02-25] MEDS: ASPIRIN 81 MG TAB NGT (09:04)
[2019-02-25] MEDS: ZINC SULFATE 220 MG CAP NGT (09:05)
[2019-02-25] MEDS: RIFAXIMIN 200 MG TAB PO ×3 (09:05→20:31)
[2019-02-25] MEDS: MULTIVIT/CA CARB/B CMPLX/FA TAB GTB (09:05)
[2019-02-25] MEDS: FOLIC ACID 1 MG TAB NGT (09:06)
[2019-02-25] MEDS: LACTOBACILLUS RHAMNOSUS CAP GTB ×3 (09:06→20:31)
[2019-02-25] MEDS: CLOPIDOGREL 75 MG TAB NGT (09:06)
[2019-02-25] MEDS: SEVELAMER CARBONATE 2.4 GM PKT GTB ×3 (09:07→17:22)
[2019-02-25] MEDS: IPRATROPIUM (NEB) 0.5 MG/2.5 ML AMP HHN ×3 (09:15→20:10)
[2019-02-25] MEDS: HEPARIN 5,000 UNIT/1 ML VIAL SC ×2 (09:24→21:41)
[2019-02-25] MEDS: AMLODIPINE 2.5 MG TAB GTB (11:48)
[2019-02-25] MEDS: oxyCODONE 5 MG TAB PO (13:00)
[2019-02-25] MEDS: EPOETIN ALFA-EPBX (ESRD) 10,000 UNIT/ML VIAL SC (17:22)
[2019-02-25] MEDS: ATORVASTATIN 80 MG TAB PO (20:41)
[2019-02-26] MEDS: ALBUTEROL 0.083% (NEB) 2.5 MG/3 ML AMP HHN ×4 (01:06→19:49)
[2019-02-26] MEDS: LANSOPRAZOLE 30 MG CAP GTB (06:04)
[2019-02-26 06:25] LABS: ADD MAN DIFF? NO
[2019-02-26 06:29] LABS: WHITE BLOOD COUNT 7.6 10^3/ul (4.8-10.8)
[2019-02-26 06:29] LABS: BASOPHILS % 0.5 % (0.0-2.0); EOSINOPHILS # 0.3 10^3/ul (0.0-0.5); EOSINOPHILS % 4.5 % (0.0-7.0); HEMATOCRIT 33.5 % (37.0-47.0); HEMOGLOBIN 10.1 g/dl (12.0-16.0); LYMPHOCYTES % 39.3 % (15.0-51.0); MEAN CORPUSCULAR HEMOGLOBIN 28.7 pg (29.0-33.0); MEAN CORPUSCULAR HGB CONC 30.1 g/dl (32.0-37.0); MEAN CORPUSCULAR VOLUME 95.2 fl (82.0-101.0); MEAN PLATELET VOLUME 11.8 fl (7.4-10.4); MONOCYTE # 0.6 10^3/ul (0.3-0.9); MONOCYTES % 8.3 % (0.0-11.0); NEUTROPHIL # 3.6 10^3/ul (1.6-7.5); PLATELET COUNT 146 10^3/UL (140-415); RED BLOOD COUNT 3.52 10^6/ul (4.20-5.40); RED CELL DISTRIBUTION WIDTH 16.2 % (11.5-14.5)
[2019-02-26 06:49] LABS: POSITIVE DIFF @See below
[2019-02-26 07:10] LABS: ALBUMIN 3.4 g/dl (3.3-4.9); ANION GAP 11 (5-13); BLOOD UREA NITROGEN 32 mg/dl (7-20); CARBON DIOXIDE 24 mmol/L (21-31); CHLORIDE 104 mmol/L (97-110); CREATININE 1.32 mg/dl (0.44-1.00); GLUCOSE 85 mg/dl (70-220); MAGNESIUM 1.4 mg/dl (1.7-2.5); PHOSPHORUS 6.8 mg/dl (2.5-4.9); POTASSIUM 3.8 mmol/L (3.5-5.1); SODIUM 139 mmol/L (135-144)
[2019-02-26] MEDS: IPRATROPIUM (NEB) 0.5 MG/2.5 ML AMP HHN ×3 (07:53→19:49)
[2019-02-26] MEDS: FOLIC ACID 1 MG TAB NGT (08:29)
[2019-02-26] MEDS: MULTIVIT/CA CARB/B CMPLX/FA TAB GTB (08:29)
[2019-02-26] MEDS: ZINC SULFATE 220 MG CAP NGT (08:29)
[2019-02-26] MEDS: SEVELAMER CARBONATE 2.4 GM PKT GTB ×3 (08:30→17:55)
[2019-02-26] MEDS: AMLODIPINE 2.5 MG TAB GTB (08:30)
[2019-02-26] MEDS: LACTOBACILLUS RHAMNOSUS CAP GTB ×3 (08:30→20:56)
[2019-02-26] MEDS: ASCORBIC ACID 500 MG TAB NGT (08:30)
[2019-02-26] MEDS: CLOPIDOGREL 75 MG TAB NGT (08:30)
[2019-02-26] MEDS: RIFAXIMIN 200 MG TAB PO ×3 (08:30→21:00)
[2019-02-26] MEDS: ASPIRIN 81 MG TAB NGT (08:34)
[2019-02-26] MEDS: HEPARIN 5,000 UNIT/1 ML VIAL SC ×2 (08:45→21:07)
[2019-02-26] MEDS: MAGNESIUM SULFATE 2 GM/50 ML 50 ML IVPB (11:21)
[2019-02-26] MEDS: ATORVASTATIN 80 MG TAB PO (20:56)
[2019-02-27] MEDS: ALBUTEROL 0.083% (NEB) 2.5 MG/3 ML AMP HHN ×4 (01:07→20:10)
[2019-02-27] MEDS: LANSOPRAZOLE 30 MG CAP GTB (05:56)
[2019-02-27 06:39] LABS: ADD MAN DIFF? NO
[2019-02-27 06:58] LABS: BASOPHIL # 0.1 10^3/ul (0.0-0.1); BASOPHILS % 0.8 % (0.0-2.0); EOSINOPHILS # 0.3 10^3/ul (0.0-0.5); EOSINOPHILS % 4.4 % (0.0-7.0); HEMATOCRIT 32.9 % (37.0-47.0); HEMOGLOBIN 9.9 g/dl (12.0-16.0); LYMPHOCYTES # 2.7 10^3/ul (0.8-2.9); LYMPHOCYTES % 41.8 % (15.0-51.0); MEAN CORPUSCULAR HEMOGLOBIN 28.7 pg (29.0-33.0); MEAN CORPUSCULAR HGB CONC 30.1 g/dl (32.0-37.0); MEAN CORPUSCULAR VOLUME 95.4 fl (82.0-101.0); MEAN PLATELET VOLUME 11.9 fl (7.4-10.4); MONOCYTE # 0.5 10^3/ul (0.3-0.9); NEUTROPHIL # 2.8 10^3/ul (1.6-7.5); NEUTROPHILS % 44.5 % (39.0-77.0); PLATELET COUNT 162 10^3/UL (140-415); RED BLOOD COUNT 3.45 10^6/ul (4.20-5.40)
[2019-02-27 06:58] LABS: WHITE BLOOD COUNT 6.4 10^3/ul (4.8-10.8)
[2019-02-27 07:37] LABS: ALBUMIN 3.4 g/dl (3.3-4.9); ANION GAP 12 (5-13); BLOOD UREA NITROGEN 28 mg/dl (7-20); CALCIUM 9.9 mg/dl (8.4-10.2); CARBON DIOXIDE 23 mmol/L (21-31); CHLORIDE 105 mmol/L (97-110); CREATININE 1.22 mg/dl (0.44-1.00); GLUCOSE 84 mg/dl (70-220); MAGNESIUM 1.7 mg/dl (1.7-2.5); PHOSPHORUS 6.3 mg/dl (2.5-4.9); POTASSIUM 3.8 mmol/L (3.5-5.1); SODIUM 140 mmol/L (135-144)
[2019-02-27] MEDS: ASPIRIN 81 MG TAB NGT (08:18)
[2019-02-27] MEDS: RIFAXIMIN 200 MG TAB PO ×3 (08:18→21:09)
[2019-02-27] MEDS: AMLODIPINE 2.5 MG TAB GTB (08:18)
[2019-02-27] MEDS: ASCORBIC ACID 500 MG TAB NGT (08:18)
[2019-02-27] MEDS: CLOPIDOGREL 75 MG TAB NGT (08:18)
[2019-02-27] MEDS: MULTIVIT/CA CARB/B CMPLX/FA TAB GTB (08:18)
[2019-02-27] MEDS: SEVELAMER CARBONATE 2.4 GM PKT GTB ×3 (08:18→16:39)
[2019-02-27] MEDS: LACTOBACILLUS RHAMNOSUS CAP GTB ×3 (08:18→21:09)
[2019-02-27] MEDS: ZINC SULFATE 220 MG CAP NGT (08:18)
[2019-02-27] MEDS: FOLIC ACID 1 MG TAB NGT (08:18)
[2019-02-27] MEDS: ARTIFICIAL TEARS 15 ML OPH BOTH EYES (08:20)
[2019-02-27] MEDS: HEPARIN 5,000 UNIT/1 ML VIAL SC ×2 (09:05→21:23)
[2019-02-27] MEDS: IPRATROPIUM (NEB) 0.5 MG/2.5 ML AMP HHN ×3 (09:34→20:10)
[2019-02-27] MEDS: MAGNESIUM SULFATE 2 GM/50 ML 50 ML IVPB (16:39)
[2019-02-27] MEDS: ATORVASTATIN 80 MG TAB PO (21:09)
[2019-02-28] MEDS: morphine 4 MG/ML VIAL IV (01:06)
[2019-02-28] MEDS: ALBUTEROL 0.083% (NEB) 2.5 MG/3 ML AMP HHN ×4 (01:29→20:07)
[2019-02-28] MEDS: LANSOPRAZOLE 30 MG CAP GTB (05:24)
[2019-02-28 06:33] LABS: ADD MAN DIFF? NO
[2019-02-28 06:45] LABS: WHITE BLOOD COUNT 6.2 10^3/ul (4.8-10.8)
[2019-02-28 06:45] LABS: BASOPHIL # 0.1 10^3/ul (0.0-0.1); BASOPHILS % 0.8 % (0.0-2.0); EOSINOPHILS # 0.3 10^3/ul (0.0-0.5); EOSINOPHILS % 4.5 % (0.0-7.0); HEMATOCRIT 33.5 % (37.0-47.0); HEMOGLOBIN 10.1 g/dl (12.0-16.0); LYMPHOCYTES # 2.7 10^3/ul (0.8-2.9); LYMPHOCYTES % 43.2 % (15.0-51.0); MEAN CORPUSCULAR HEMOGLOBIN 28.9 pg (29.0-33.0); MEAN CORPUSCULAR HGB CONC 30.1 g/dl (32.0-37.0); MEAN CORPUSCULAR VOLUME 95.7 fl (82.0-101.0); MEAN PLATELET VOLUME 11.4 fl (7.4-10.4); MONOCYTE # 0.5 10^3/ul (0.3-0.9); MONOCYTES % 7.8 % (0.0-11.0); NEUTROPHIL # 2.7 10^3/ul (1.6-7.5); NEUTROPHILS % 43.4 % (39.0-77.0); PLATELET COUNT 170 10^3/UL (140-415); RED CELL DISTRIBUTION WIDTH 15.7 % (11.5-14.5)
[2019-02-28 07:13] LABS: ALBUMIN 3.4 g/dl (3.3-4.9); ANION GAP 10 (5-13); BLOOD UREA NITROGEN 25 mg/dl (7-20); CALCIUM 9.9 mg/dl (8.4-10.2); CARBON DIOXIDE 24 mmol/L (21-31); CHLORIDE 105 mmol/L (97-110); CREATININE 1.22 mg/dl (0.44-1.00); GLUCOSE 92 mg/dl (70-220); POTASSIUM 3.9 mmol/L (3.5-5.1); SODIUM 139 mmol/L (135-144)
[2019-02-28] MEDS: SEVELAMER CARBONATE 2.4 GM PKT GTB ×3 (08:43→18:21)
[2019-02-28] MEDS: ASPIRIN 81 MG TAB NGT (08:44)
[2019-02-28] MEDS: ZINC SULFATE 220 MG CAP NGT (08:44)
[2019-02-28] MEDS: RIFAXIMIN 200 MG TAB PO ×3 (08:44→20:48)
[2019-02-28] MEDS: AMLODIPINE 2.5 MG TAB GTB (08:45)
[2019-02-28] MEDS: LACTOBACILLUS RHAMNOSUS CAP GTB ×2 (08:45→12:37)
[2019-02-28] MEDS: CLOPIDOGREL 75 MG TAB NGT (08:45)
[2019-02-28] MEDS: MULTIVIT/CA CARB/B CMPLX/FA TAB GTB (08:45)
[2019-02-28] MEDS: FOLIC ACID 1 MG TAB NGT (08:46)
[2019-02-28] MEDS: ASCORBIC ACID 500 MG TAB NGT (08:46)
[2019-02-28] MEDS: IPRATROPIUM (NEB) 0.5 MG/2.5 ML AMP HHN ×3 (09:06→20:07)
[2019-02-28] MEDS: HEPARIN 5,000 UNIT/1 ML VIAL SC ×2 (09:32→20:56)
[2019-02-28 18:46] LABS: B-TYPE NATRIURETIC PEPTIDE 1890 PG/ML (0-125)
[2019-02-28] MEDS: ATORVASTATIN 80 MG TAB PO (20:48)
[2019-02-28] MEDS: ARTIFICIAL TEARS 15 ML OPH BOTH EYES (22:31)
[2019-03-01] MEDS: ALBUTEROL 0.083% (NEB) 2.5 MG/3 ML AMP HHN ×4 (01:25→19:43)
[2019-03-01 05:26] LABS: AADO2 Arterial 52.3 mmHg (7.0-24.0); Allen Test ACCEPTAB; Arterial Base Excess -1.5 mmol/L (-3.0-3); Arterial Blood Gas Oxygen Sat 98.4 mmHG (95.0-98.0); Arterial COHb 0.7 % (0.0-3.0); Arterial Fraction of Oxyhgb 97.4 % (93.0-99.0); Arterial HCO3 21.6 mmol/L (22.0-26.0); Arterial MetHb 0.3 % (0.0-1.5); Arterial pCO2 30.9 mmhg (35-45); MODE TRACH COLLAR; Site Left Radial
[2019-03-01] MEDS: LANSOPRAZOLE 30 MG CAP PO (06:07)
[2019-03-01 06:42] LABS: ADD MAN DIFF? NO
[2019-03-01 06:58] LABS: BASOPHILS % 0.5 % (0.0-2.0); EOSINOPHILS # 0.3 10^3/ul (0.0-0.5); EOSINOPHILS % 5.3 % (0.0-7.0); HEMATOCRIT 33.4 % (37.0-47.0); HEMOGLOBIN 10.2 g/dl (12.0-16.0); LYMPHOCYTES # 2.7 10^3/ul (0.8-2.9); LYMPHOCYTES % 45.1 % (15.0-51.0); MEAN CORPUSCULAR HEMOGLOBIN 29.1 pg (29.0-33.0); MEAN CORPUSCULAR HGB CONC 30.5 g/dl (32.0-37.0); MEAN CORPUSCULAR VOLUME 95.2 fl (82.0-101.0); MEAN PLATELET VOLUME 12.1 fl (7.4-10.4); MONOCYTE # 0.5 10^3/ul (0.3-0.9); NEUTROPHIL # 2.4 10^3/ul (1.6-7.5); NEUTROPHILS % 40.8 % (39.0-77.0); PLATELET COUNT 184 10^3/UL (140-415); RED BLOOD COUNT 3.51 10^6/ul (4.20-5.40); RED CELL DISTRIBUTION WIDTH 15.3 % (11.5-14.5)
[2019-03-01 06:58] LABS: WHITE BLOOD COUNT 5.9 10^3/ul (4.8-10.8)
[2019-03-01 07:16] LABS: ALBUMIN 3.3 g/dl (3.3-4.9); ANION GAP 11 (5-13); BLOOD UREA NITROGEN 22 mg/dl (7-20); CALCIUM 9.8 mg/dl (8.4-10.2); CARBON DIOXIDE 24 mmol/L (21-31); CHLORIDE 105 mmol/L (97-110); CREATININE 1.18 mg/dl (0.44-1.00); GLUCOSE 92 mg/dl (70-220); MAGNESIUM 1.8 mg/dl (1.7-2.5); PHOSPHORUS 6.9 mg/dl (2.5-4.9); POTASSIUM 3.8 mmol/L (3.5-5.1); SODIUM 140 mmol/L (135-144)
[2019-03-01] MEDS: IPRATROPIUM (NEB) 0.5 MG/2.5 ML AMP HHN ×3 (07:43→19:43)
[2019-03-01] MEDS: SEVELAMER CARBONATE 2.4 GM PKT GTB ×3 (08:27→18:29)
[2019-03-01] MEDS: FOLIC ACID 1 MG TAB NGT (08:28)
[2019-03-01] MEDS: CLOPIDOGREL 75 MG TAB PO (08:28)
[2019-03-01] MEDS: MULTIVIT/CA CARB/B CMPLX/FA TAB PO (08:28)
[2019-03-01] MEDS: AMLODIPINE 2.5 MG TAB PO (08:29)
[2019-03-01] MEDS: ASPIRIN 81 MG TAB PO (08:30)
[2019-03-01] MEDS: RIFAXIMIN 200 MG TAB PO ×3 (08:30→20:51)
[2019-03-01] MEDS: HEPARIN 5,000 UNIT/1 ML VIAL SC ×2 (09:38→20:57)
[2019-03-01] MEDS: FUROSEMIDE 20 MG INJ IV (15:41)
[2019-03-01] MEDS: ATORVASTATIN 80 MG TAB PO (20:51)
[2019-03-02] MEDS: ALBUTEROL 0.083% (NEB) 2.5 MG/3 ML AMP HHN ×4 (01:53→19:56)
[2019-03-02] MEDS: LANSOPRAZOLE 30 MG CAP PO (05:38)
[2019-03-02 07:21] LABS: ADD MAN DIFF? NO
[2019-03-02 07:29] LABS: WHITE BLOOD COUNT 5.7 10^3/ul (4.8-10.8)
[2019-03-02 07:29] LABS: BASOPHILS % 0.7 % (0.0-2.0); EOSINOPHILS # 0.3 10^3/ul (0.0-0.5); EOSINOPHILS % 4.5 % (0.0-7.0); HEMATOCRIT 33.3 % (37.0-47.0); HEMOGLOBIN 10.1 g/dl (12.0-16.0); LYMPHOCYTES # 2.9 10^3/ul (0.8-2.9); MEAN CORPUSCULAR HEMOGLOBIN 28.9 pg (29.0-33.0); MEAN CORPUSCULAR HGB CONC 30.3 g/dl (32.0-37.0); MEAN CORPUSCULAR VOLUME 95.1 fl (82.0-101.0); MEAN PLATELET VOLUME 11.7 fl (7.4-10.4); MONOCYTE # 0.4 10^3/ul (0.3-0.9); MONOCYTES % 7.5 % (0.0-11.0); NEUTROPHIL # 2.1 10^3/ul (1.6-7.5); PLATELET COUNT 163 10^3/UL (140-415); RED CELL DISTRIBUTION WIDTH 15.2 % (11.5-14.5)
[2019-03-02 07:53] LABS: ALBUMIN 3.3 g/dl (3.3-4.9); ANION GAP 10 (5-13); BLOOD UREA NITROGEN 20 mg/dl (7-20); CALCIUM 9.8 mg/dl (8.4-10.2); CARBON DIOXIDE 24 mmol/L (21-31); CHLORIDE 105 mmol/L (97-110); CREATININE 1.25 mg/dl (0.44-1.00); GLUCOSE 88 mg/dl (70-220); MAGNESIUM 1.5 mg/dl (1.7-2.5); PHOSPHORUS 6.7 mg/dl (2.5-4.9); POTASSIUM 3.8 mmol/L (3.5-5.1); SODIUM 139 mmol/L (135-144)
[2019-03-02] MEDS: SEVELAMER CARBONATE 2.4 GM PKT GTB ×3 (08:06→17:30)
[2019-03-02] MEDS: RIFAXIMIN 200 MG TAB PO ×3 (08:09→21:40)
[2019-03-02] MEDS: CLOPIDOGREL 75 MG TAB PO (08:09)
[2019-03-02] MEDS: ASPIRIN 81 MG TAB PO (08:09)
[2019-03-02] MEDS: FOLIC ACID 1 MG TAB NGT (08:09)
[2019-03-02] MEDS: MULTIVIT/CA CARB/B CMPLX/FA TAB PO (08:09)
[2019-03-02] MEDS: AMLODIPINE 2.5 MG TAB PO (08:11)
[2019-03-02] MEDS: FUROSEMIDE 20 MG INJ IV (08:11)
[2019-03-02] MEDS: HEPARIN 5,000 UNIT/1 ML VIAL SC ×2 (08:29→21:57)
[2019-03-02] MEDS: MAGNESIUM SULFATE 2 GM/50 ML 50 ML IVPB (09:18)
[2019-03-02] MEDS: IPRATROPIUM (NEB) 0.5 MG/2.5 ML AMP HHN ×3 (09:45→19:56)
[2019-03-02] MEDS: ATORVASTATIN 80 MG TAB PO (21:40)
[2019-03-03] MEDS: ALBUTEROL 0.083% (NEB) 2.5 MG/3 ML AMP HHN ×4 (01:34→21:00)
[2019-03-03] MEDS: LANSOPRAZOLE 30 MG CAP PO (06:03)
[2019-03-03] MEDS: IPRATROPIUM (NEB) 0.5 MG/2.5 ML AMP HHN ×3 (08:34→21:00)
[2019-03-03 08:36] LABS: ADD MAN DIFF? NO
[2019-03-03 08:38] LABS: BASOPHIL # 0.1 10^3/ul (0.0-0.1); BASOPHILS % 0.8 % (0.0-2.0); EOSINOPHILS # 0.3 10^3/ul (0.0-0.5); EOSINOPHILS % 3.9 % (0.0-7.0); HEMATOCRIT 35.2 % (37.0-47.0); HEMOGLOBIN 10.7 g/dl (12.0-16.0); LYMPHOCYTES # 3.4 10^3/ul (0.8-2.9); LYMPHOCYTES % 52.3 % (15.0-51.0); MEAN CORPUSCULAR HEMOGLOBIN 28.5 pg (29.0-33.0); MEAN CORPUSCULAR HGB CONC 30.4 g/dl (32.0-37.0); MEAN CORPUSCULAR VOLUME 93.9 fl (82.0-101.0); MEAN PLATELET VOLUME 11.9 fl (7.4-10.4); MONOCYTE # 0.5 10^3/ul (0.3-0.9); MONOCYTES % 7.1 % (0.0-11.0); NEUTROPHIL # 2.3 10^3/ul (1.6-7.5); NEUTROPHILS % 35.6 % (39.0-77.0); PLATELET COUNT 208 10^3/UL (140-415); RED BLOOD COUNT 3.75 10^6/ul (4.20-5.40)
[2019-03-03 08:38] LABS: WHITE BLOOD COUNT 6.5 10^3/ul (4.8-10.8)
[2019-03-03 08:57] LABS: ALBUMIN 3.5 g/dl (3.3-4.9); ANION GAP 9 (5-13); BLOOD UREA NITROGEN 19 mg/dl (7-20); CALCIUM 9.8 mg/dl (8.4-10.2); CARBON DIOXIDE 26 mmol/L (21-31); CHLORIDE 104 mmol/L (97-110); CREATININE 1.33 mg/dl (0.44-1.00); GLUCOSE 95 mg/dl (70-220); MAGNESIUM 1.7 mg/dl (1.7-2.5); PHOSPHORUS 6.5 mg/dl (2.5-4.9); POTASSIUM 4.2 mmol/L (3.5-5.1); SODIUM 139 mmol/L (135-144)
[2019-03-03] MEDS: FOLIC ACID 1 MG TAB NGT (09:52)
[2019-03-03] MEDS: MULTIVIT/CA CARB/B CMPLX/FA TAB PO (09:53)
[2019-03-03] MEDS: FUROSEMIDE 20 MG INJ IV (09:53)
[2019-03-03] MEDS: ASPIRIN 81 MG TAB PO (09:53)
[2019-03-03] MEDS: AMLODIPINE 2.5 MG TAB PO (09:53)
[2019-03-03] MEDS: SEVELAMER CARBONATE 2.4 GM PKT GTB ×3 (09:53→17:55)
[2019-03-03] MEDS: CLOPIDOGREL 75 MG TAB PO (09:53)
[2019-03-03] MEDS: RIFAXIMIN 200 MG TAB PO ×3 (09:53→20:42)
[2019-03-03] MEDS: HEPARIN 5,000 UNIT/1 ML VIAL SC ×2 (09:59→21:51)
[2019-03-03] MEDS: MAGNESIUM SULFATE 3 GM in DEXTROSE 5% 100 ML IVPB (12:35)
[2019-03-03] MEDS: ATORVASTATIN 80 MG TAB PO (20:42)
[2019-03-04] MEDS: ALBUTEROL 0.083% (NEB) 2.5 MG/3 ML AMP HHN ×2 (01:59→08:06)
[2019-03-04] MEDS: LANSOPRAZOLE 30 MG CAP PO (05:42)
[2019-03-04] MEDS: ARTIFICIAL TEARS 15 ML OPH BOTH EYES (06:03)
[2019-03-04] MEDS: IPRATROPIUM (NEB) 0.5 MG/2.5 ML AMP HHN (08:06)
[2019-03-04] MEDS: AMLODIPINE 2.5 MG TAB PO (08:58)
[2019-03-04] MEDS: MULTIVIT/CA CARB/B CMPLX/FA TAB PO (08:58)
[2019-03-04] MEDS: FOLIC ACID 1 MG TAB NGT (08:58)
[2019-03-04] MEDS: SEVELAMER CARBONATE 2.4 GM PKT GTB ×3 (08:58→18:26)
[2019-03-04] MEDS: CLOPIDOGREL 75 MG TAB PO (08:58)
[2019-03-04] MEDS: ASPIRIN 81 MG TAB PO (08:59)
[2019-03-04] MEDS: HEPARIN 5,000 UNIT/1 ML VIAL SC ×2 (09:40→20:16)
[2019-03-04 10:20] LABS: ADD MAN DIFF? NO
[2019-03-04 10:22] LABS: BASOPHIL # 0.1 10^3/ul (0.0-0.1); EOSINOPHILS # 0.2 10^3/ul (0.0-0.5); EOSINOPHILS % 3.4 % (0.0-7.0); HEMATOCRIT 35.8 % (37.0-47.0); HEMOGLOBIN 10.8 g/dl (12.0-16.0); LYMPHOCYTES # 2.9 10^3/ul (0.8-2.9); LYMPHOCYTES % 47.2 % (15.0-51.0); MEAN CORPUSCULAR HEMOGLOBIN 28.5 pg (29.0-33.0); MEAN CORPUSCULAR HGB CONC 30.2 g/dl (32.0-37.0); MEAN CORPUSCULAR VOLUME 94.5 fl (82.0-101.0); MEAN PLATELET VOLUME 11.5 fl (7.4-10.4); MONOCYTE # 0.5 10^3/ul (0.3-0.9); MONOCYTES % 8.7 % (0.0-11.0); NEUTROPHIL # 2.4 10^3/ul (1.6-7.5); NEUTROPHILS % 39.4 % (39.0-77.0); PLATELET COUNT 182 10^3/UL (140-415); RED BLOOD COUNT 3.79 10^6/ul (4.20-5.40); RED CELL DISTRIBUTION WIDTH 14.8 % (11.5-14.5)
[2019-03-04 10:22] LABS: WHITE BLOOD COUNT 6.2 10^3/ul (4.8-10.8)
[2019-03-04 10:40] LABS: ALANINE AMINOTRANSFERASE 35 IU/L (13-69); ALBUMIN 3.4 g/dl (3.3-4.9); ALBUMIN/GLOBULIN RATIO 0.85; ALKALINE PHOSPHATASE 140 IU/L (42-121); ANION GAP 9 (5-13); ASPARTATE AMINO TRANSFERASE 37 IU/L (15-46); BILIRUBIN,INDIRECT 0.5 mg/dl (0-1.1); BILIRUBIN,TOTAL 0.5 mg/dl (0.2-1.3); BLOOD UREA NITROGEN 18 mg/dl (7-20); CALCIUM 9.7 mg/dl (8.4-10.2); CARBON DIOXIDE 24 mmol/L (21-31); CHLORIDE 106 mmol/L (97-110); CREATININE 1.37 mg/dl (0.44-1.00); Estimated GFR 43 mL/min (>60); GLUCOSE 116 mg/dl (70-220); POTASSIUM 4.1 mmol/L (3.5-5.1); SODIUM 139 mmol/L (135-144); TOTAL PROTEIN 7.4 g/dl (6.1-8.1)
[2019-03-04] MEDS: FLUTICASONE/VILANTEROL 100-25 INH (12:22)
[2019-03-04] MEDS: FUROSEMIDE 20 MG TAB PO (12:22)
[2019-03-04] MEDS: TIOTROPIUM 18 MCG CAPSULE INHA DEV INH (12:22)
[2019-03-04] MEDS: ATORVASTATIN 80 MG TAB PO (20:09)
[2019-03-05] MEDS: LANSOPRAZOLE 30 MG CAP PO (05:07)
[2019-03-05 07:55] LABS: ADD MAN DIFF? NO
[2019-03-05 08:03] LABS: BASOPHIL # 0.1 10^3/ul (0.0-0.1); BASOPHILS % 0.8 % (0.0-2.0); EOSINOPHILS # 0.2 10^3/ul (0.0-0.5); EOSINOPHILS % 3.1 % (0.0-7.0); HEMATOCRIT 34.3 % (37.0-47.0); HEMOGLOBIN 10.5 g/dl (12.0-16.0); LYMPHOCYTES # 3.3 10^3/ul (0.8-2.9); LYMPHOCYTES % 52.1 % (15.0-51.0); MEAN CORPUSCULAR HGB CONC 30.6 g/dl (32.0-37.0); MEAN CORPUSCULAR VOLUME 94.8 fl (82.0-101.0); MEAN PLATELET VOLUME 11.3 fl (7.4-10.4); MONOCYTE # 0.5 10^3/ul (0.3-0.9); MONOCYTES % 7.6 % (0.0-11.0); NEUTROPHIL # 2.3 10^3/ul (1.6-7.5); NEUTROPHILS % 36.2 % (39.0-77.0); PLATELET COUNT 181 10^3/UL (140-415); RED BLOOD COUNT 3.62 10^6/ul (4.20-5.40); RED CELL DISTRIBUTION WIDTH 14.6 % (11.5-14.5)
[2019-03-05 08:03] LABS: WHITE BLOOD COUNT 6.4 10^3/ul (4.8-10.8)
[2019-03-05 08:27] LABS: ANION GAP 10 (5-13); BLOOD UREA NITROGEN 19 mg/dl (7-20); CALCIUM 9.9 mg/dl (8.4-10.2); CARBON DIOXIDE 24 mmol/L (21-31); CHLORIDE 106 mmol/L (97-110); CREATININE 1.27 mg/dl (0.44-1.00); Estimated GFR 47 mL/min (>60); GLUCOSE 90 mg/dl (70-220); PHOSPHORUS 6.2 mg/dl (2.5-4.9); POTASSIUM 4.1 mmol/L (3.5-5.1); SODIUM 140 mmol/L (135-144)
[2019-03-05] MEDS: FOLIC ACID 1 MG TAB NGT (09:28)
[2019-03-05] MEDS: ASPIRIN 81 MG TAB PO (09:28)
[2019-03-05] MEDS: MULTIVIT/CA CARB/B CMPLX/FA TAB PO (09:29)
[2019-03-05] MEDS: CLOPIDOGREL 75 MG TAB PO (09:29)
[2019-03-05] MEDS: AMLODIPINE 2.5 MG TAB PO (09:30)
[2019-03-05] MEDS: SEVELAMER CARBONATE 2.4 GM PKT GTB ×2 (09:30→11:36)
[2019-03-05] MEDS: FUROSEMIDE 20 MG TAB PO (09:30)
[2019-03-05] MEDS: HEPARIN 5,000 UNIT/1 ML VIAL SC (09:31)
[2019-03-05] MEDS: FLUTICASONE/VILANTEROL 100-25 INH (09:33)
[2019-03-05] MEDS: TIOTROPIUM 18 MCG CAPSULE INHA DEV INH (09:38)
[2019-03-05] MEDS: MAGNESIUM SULFATE 2 GM/50 ML 50 ML IVPB (09:39)
== END 2019-03-05 13:45 | disposition home health service (06) | DRG 3 ==
LOC: 6WM 02-05 17:07 → TEL 03-03 13:45 → E/R 22:12 → ICU 23:10 → TEL 02-10 23:42
PROC: 027034Z Dilation of Coronary Artery, One Artery with Drug-eluting Intraluminal Device, Percutaneous Approach (ICD-10-PCS; principal; 2019-01-10 00:03)
PROC: 0B110F4 Bypass Trachea to Cutaneous with Tracheostomy Device, Open Approach (ICD-10-PCS; 2019-01-10 00:03)
PROC: 5A1955Z Respiratory Ventilation, Greater than 96 Consecutive Hours (ICD-10-PCS; 2019-01-10 00:03)
PROC: 02703ZZ Dilation of Coronary Artery, One Artery, Percutaneous Approach (ICD-10-PCS; 2019-01-10 00:03)
PROC: 02C03ZZ Extirpation of Matter from Coronary Artery, One Artery, Percutaneous Approach (ICD-10-PCS; 2019-01-10 00:03)
PROC: 027035Z Dilation of Coronary Artery, One Artery with Two Drug-eluting Intraluminal Devices, Percutaneous Approach (ICD-10-PCS; 2019-01-10 00:03)
PROC: 027034Z Dilation of Coronary Artery, One Artery with Drug-eluting Intraluminal Device, Percutaneous Approach (ICD-10-PCS; 2019-01-10 00:03)
PROC: 02713ZZ Dilation of Coronary Artery, Two Arteries, Percutaneous Approach (ICD-10-PCS; 2019-01-10 00:03)
PROC: 5A1D70Z Performance of Urinary Filtration, Intermittent, Less than 6 Hours Per Day (ICD-10-PCS; 2019-01-10 00:03)
PROC: 0BH18EZ Insertion of Endotracheal Airway into Trachea, Via Natural or Artificial Opening Endoscopic (ICD-10-PCS; 2019-01-10 00:03)
PROC: 4A023N7 Measurement of Cardiac Sampling and Pressure, Left Heart, Percutaneous Approach (ICD-10-PCS; 2019-01-10 00:03)
PROC: B211YZZ Fluoroscopy of Multiple Coronary Arteries using Other Contrast (ICD-10-PCS; 2019-01-10 00:03)
PROC: B211YZZ Fluoroscopy of Multiple Coronary Arteries using Other Contrast (ICD-10-PCS; 2019-01-10 00:03)
PROC: 02HV33Z Insertion of Infusion Device into Superior Vena Cava, Percutaneous Approach (ICD-10-PCS; 2019-01-10 00:03)
PROC: 02HV33Z Insertion of Infusion Device into Superior Vena Cava, Percutaneous Approach (ICD-10-PCS; 2019-01-10 00:03)
PROC: 06HY33Z Insertion of Infusion Device into Lower Vein, Percutaneous Approach (ICD-10-PCS; 2019-01-10 00:03)
PROC: 0B21XEZ Change Endotracheal Airway in Trachea, External Approach (ICD-10-PCS; 2019-01-10 00:03)
PROC: 0DH63UZ Insertion of Feeding Device into Stomach, Percutaneous Approach (ICD-10-PCS; 2019-01-10 00:03)
PROC: 4A023N7 Measurement of Cardiac Sampling and Pressure, Left Heart, Percutaneous Approach (ICD-10-PCS; 2019-01-10 00:03)
PROC: B211YZZ Fluoroscopy of Multiple Coronary Arteries using Other Contrast (ICD-10-PCS; 2019-01-10 00:03)
PROC: 30233N1 Transfusion of Nonautologous Red Blood Cells into Peripheral Vein, Percutaneous Approach (ICD-10-PCS; 2019-01-10 00:03)
PROC: 0BJ18ZZ Inspection of Trachea, Via Natural or Artificial Opening Endoscopic (ICD-10-PCS; 2019-01-10 00:03)
DX: I21.02 ST elevation (STEMI) myocardial infarction involving left anterior descending coronary artery (principal); I46.2 Cardiac arrest due to underlying cardiac condition; I49.01 Ventricular fibrillation; N17.0 Acute kidney failure with tubular necrosis; J96.01 Acute respiratory failure with hypoxia; R65.21 Severe sepsis with septic shock; I63.9 Cerebral infarction, unspecified; G93.41 Metabolic encephalopathy; J15.211 Pneumonia due to Methicillin susceptible Staphylococcus aureus; A41.01 Sepsis due to Methicillin susceptible Staphylococcus aureus; E87.2 Acidosis; E87.4 Mixed disorder of acid-base balance; E46 Unspecified protein-calorie malnutrition; D62 Acute posthemorrhagic anemia; N39.0 Urinary tract infection, site not specified; M62.82 Rhabdomyolysis; I23.7 Postinfarction angina; J95.03 Malfunction of tracheostomy stoma; I25.10 Atherosclerotic heart disease of native coronary artery without angina pectoris; E66.01 Morbid (severe) obesity due to excess calories; Z68.39 Body mass index [BMI] 39.0-39.9, adult; E78.5 Hyperlipidemia, unspecified; E87.6 Hypokalemia; D64.9 Anemia, unspecified; K76.89 Other specified diseases of liver; D69.6 Thrombocytopenia, unspecified; H92.22 Otorrhagia, left ear; E87.70 Fluid overload, unspecified; J01.90 Acute sinusitis, unspecified; H70.93 Unspecified mastoiditis, bilateral; R04.0 Epistaxis; N14.1 Nephropathy induced by other drugs, medicaments and biological substances; T50.8X5A Adverse effect of diagnostic agents, initial encounter; I10 Essential (primary) hypertension; R19.7 Diarrhea, unspecified; R04.1 Hemorrhage from throat; E11.9 Type 2 diabetes mellitus without complications; E87.5 Hyperkalemia; B96.20 Unspecified Escherichia coli [E. coli] as the cause of diseases classified elsewhere; B96.4 Proteus (mirabilis) (morganii) as the cause of diseases classified elsewhere; I22.2 Subsequent non-ST elevation (NSTEMI) myocardial infarction; E83.42 Hypomagnesemia
CPT/HCPCS: 31500; 36430; 36569; 36600; 70450; 70551; 71045; 73600; 74018; 74230; 76705; 76937; 80048; 80053; 80061; 80069; 80076; 80202; 81001; 81240; 82140; 82150; 82550; 82553; 82803; 82962; 83036; 83090; 83605; 83690; 83735; 83880; 83890; 84100; 84439; 84443; 84484; 84703; 85014; 85018; 85025; 85049; 85300; 85302; 85305; 85378; 85384; 85610; 85613; 85651; 85670; 85730; 86038; 86146; 86147; 86592; 86704; 86709; 86803; 86850; 86900; 86901; 86920; 87040-91; 87070; 87075; 87081; 87086; 87340; 89220; 90935; 92526; 92610; 92611; 92928; 92929; 93005; 93306; 93458; 93880; 93971; 94002; 94003; 94640; 94664; 94770; 95819; 96374; 97110; 97116; 97163; 97164; 97167; 97168; 97530; 97535; 99291-25

== ENCOUNTER 2019-05-13 21:53 | Emergency (ER) | payer OTHER | END 2019-05-14 02:15 | disposition home or self-care (01) | LOC: E/R 21:53 | DX: J95.00 Unspecified tracheostomy complication (principal); I25.10 Atherosclerotic heart disease of native coronary artery without angina pectoris; E11.9 Type 2 diabetes mellitus without complications; Z79.02 Long term (current) use of antithrombotics/antiplatelets; Z79.82 Long term (current) use of aspirin | CPT/HCPCS: 99282; Z7502 ==